=== PATIENT | female | born 1975 | race Two or more races ===

== ENCOUNTER 2021-10-24 07:41 | Outpatient (CLI) | payer OTHER, SELFPAY ==
--- NOTE | ~2021-10-24 | MM_ITS ---
EXAMINATION: MM scrn isaac implant BI w collin HISTORY: Screening mammogram TECHNIQUE: Craniocaudal and mediolateral oblique 3-D tomosynthesis images with implant displacement a nd synthetic 2-D images were generated. Craniocaudal and mediolateral oblique views of the breasts wi thout implant displacement were obtained using full field digital mammography. CAD analysis was submi tted and interpreted. COMPARISON: 08/20/2018, 06/25/2017, 02/26/2016 bilateral implant screening mammogram examinations BREAST PARENCHYMAL COMPOSITION: There are scattered areas of fibroglandular density. FINDINGS: Status post bilateral augmentation mammoplasty. There is no evidence of suspicious mass, ca lcification, or architectural distortion to suggest malignancy in either breast. There has been no robison spicious interval change. IMPRESSION: 1. No mammographic evidence of malignancy. 2. Recommend routine screening mammography in one year. BI-RADS Category 1: Negative Reviewed, dictated and finalized at location A.
== END 2021-10-24 07:42 | disposition home or self-care (01) ==
LOC: ANHIMG 07:44
PROVIDERS: PCP Family Medicine; Visit Provider Nurse Practitioner
DX: Z12.31 Encounter for screening mammogram for malignant neoplasm of breast (principal)
CPT/HCPCS: 77063; 77067

== ENCOUNTER 2022-02-11 02:33 | Emergency (ER) | payer OTHER, SELFPAY ==
[2022-02-11] VITALS (13 sets, daily range): BP systolic 131–160; BP diastolic 70–92; PULSE 66–96; RESP 14–26; TEMP 36.6; O2SAT 100
--- NOTE | ~2022-02-11 | XR_ITS ---
EXAMINATION: XR chest 2V DATE: 02/11/2022 06:01 INDICATION: Chest pain TECHNIQUE: PA and lateral views of the chest were obtained. COMPARISON: None FINDINGS: The lungs are clear with no focal airspace opacities, pulmonary edema, pleural effusion or pneumothor ax. The cardiomediastinal silhouette is normal. Moderate thoracic and lower cervical spondylosis. IMPRESSION: 1. No acute cardiopulmonary disease. Reviewed, dictated and finalized at location A.
--- NOTE | 2022-02-11 02:35 | ECG_ITS ---
Measurements Intervals [place] Rate: 95 P: 58 TN: 161 QRS: 17 QRSD: 70 T: 9 QT: 328 QTc: 413 Interpretive Statements SINUS RHYTHM VENTRICULAR PREMATURE COMPLEXES POSSIBLE LEFT ATRIAL ENLARGEMENT MINIMAL Q WAVES- INFERIOR LEADS ANTEROSEPTAL INFARCT, AGE INDETERMINATE BORDERLINE ST-T WAVE ABNORMALITY- INFERIOR LEADS ABNORMAL ECG NO PREVIOUS ECG AVAILABLE FOR COMPARISON Electronically Signed On 02-11-2022 6:30:59 CDT by Matheus Mead D.O.
[2022-02-11] MEDS: ASPIRIN 81 MG CHEWABLE TABLET 324 MG PO (03:09)
[2022-02-11 03:20] LABS: Basophils Absolute Auto 0.1 K/mm3 (0.0-0.1); Basophils Percent Auto 0.6 % (0.2-1.2); Eosinophils Absolute Auto 0.3 K/mm3 (0-0.3); Eosinophils Percent Auto 3.1 % (0-4.4); Hematocrit 40.1 % (37.0-47.0); Hemoglobin 13.8 g/dL (12.0-15.0); Immature Granulocyte Absolute 0.01 K/mm3 (0.00-0.031); Immature Granulocyte Percent A 0.1 % (0-0.5); Lymphocytes Absolute Auto 1.48 K/mm3 (0.9-3.2); Lymphocytes Percent Auto 17.7 % (18.3-44.2); Mean Corpuscular HGB Conc 34.4 g/dl (32-36); Mean Corpuscular Hemoglobin 31.2 pg (26-34); Mean Corpuscular Volume 90.5 fl (80-100); Mean Platelet Volume 10.9 fl (7.4-10.4); Monocytes Absolute Auto 0.4 K/mm3 (0.1-0.6); Monocytes Percent Auto 4.5 % (2.6-8.5); Neutrophils Absolute Auto 6.2 K/mm3 (1.3-6.7); Platelet Count Result 227 k/mm3 (150-375); Red Blood Count 4.43 M/mm3 (4.2-5.4); Red Cell Distribution Width 13.2 % (11.5-14.5); White Blood Count 8.4 K/mm3 (4.5-10.0)
[2022-02-11 03:29] LABS: Alanine Aminotransferase 24 U/L (6-35); Albumin Level 4.2 g/dL (3.5-5.1); Alkaline Phosphatase 64 U/L (38-126); Anion Gap 9 mmol/L (8-16); Aspartate Amino Transferase 27 U/L (14-36); Bilirubin,Total 0.4 mg/dL (0.2-1.3); Blood Urea Nitrogen 10 mg/dL (7-17); Calcium 9.4 mg/dL (8.4-10.2); Carbon Dioxide 23 mmol/L (22-30); Chloride 103 mmol/L (98-107); Estimated CRCL calculation 78 ml/min; Estimated Glomerular Filt Rate > 60; Glucose 121 mg/dL (65-110); Lipase 116 U/L (23-300); Potassium 4.1 mmol/L (3.4-5.0); Sodium 135 mmol/L (137-145)
[2022-02-11 03:29] LABS: INR 0.9; Prothrombin Time 12.2 Seconds (11.1-14.7)
[2022-02-11 03:30] LABS: Partial Thromboplastin Time 26.6 SECONDS (22.3-36.8)
[2022-02-11 03:34] LABS: D Dimer < 0.27 ug/mL (<0.48)
[2022-02-11 03:38] LABS: NT Pro B Type Natriuretic Pept 55 pg/mL (5-100)
[2022-02-11 03:41] LABS: Troponin I < 0.012 ng/mL (0.000-0.034)
--- NOTE | 2022-02-11 04:20 | PC.NURSE ---
Pt made aware of pending results. States pain remains to her left chest. Offered something for pain and pt states no, I'm okay. I just wanted to let you know I still have pain .
--- NOTE | 2022-02-11 04:47 | ED.GENADULT ---
HPI - General Adult General Chief complaint: Chest Pain Stated complaint: chest pain Time Seen by Provider: 02/11/22 02:52 History of Present Illness HPI narrative: This is a 47-year-old female presenting to ED with chief complaint chest pain. Patient says she has been having chest pain since April of last year. She has approximately 3 times per week. She describes it is a dull pain beneath her left breast that does not radiate, typically last for about 15 minutes at a time, is worse when she lays down it happens more frequently at night. She has recently seen a production posting clerk and underwent a stress test which she does not know the results. Patient came in tonight because the pain was more severe than usual and she said that it brought her to her knees. She denies loss of consciousness or syncope. Patient says that her chest pain is much improved at this time. It is not associated with diaphoresis, vomiting or exertion. Her grandfather had a history of cardiac at age 63. Related Data Home Medications Medication Instructions Recorded Confirmed atorvastatin 20 mg tablet mg 02/11/22 Allergies Allergy/AdvReac Type Severity Reaction Status Date / Time No Known Allergies Allergy Mild Verified 02/11/22 02:38 Review of Systems Review of Systems: CONSTITUTIONAL: Denies night sweats. EYES: No eye pain ENT: Denies rhinorrhea CARDIOVASCULAR: Denies palpitations RESPIRATORY: Denies hemoptysis GASTROINTESTINAL: Denies hematemesis GENITOURINARY: Denies hematuria. SKIN: Denies rash MUSCULOSKELETAL: Denies myalgia. NEUROLOGIC: Denies weakness. PSYCHIATRIC: Denies delusions [facility] Social History Social History Smoking status: Never smoker Alcohol intake: never Exam Narrative: APPEARANCE: No apparent distress. Head atraumatic. EYES: PERRLA/EOMI, NOSE: Normal no drainage NECK: Supple, Trachea midline RESPIRATORY: CTAB, No increased work of breathing. CARDIOVASCULAR: S1S2 appreciated , no peripheral edema ABDOMINAL: Soft, nontender, nondistended, MUSCULOSKELETAl: No obvious deformities NEURO: Alert. Moving 4/4 extremities SKIN:: Warm, dry. Normal color PSYCHIATRIC: Normal affect Course Vital Signs Vital signs: Vital Signs Temperature 97.8 F 02/11/22 02:41 Pulse Rate 96 02/11/22 02:41 Respiratory Rate 26 H 02/11/22 02:41 Blood Pressure 160/92 H 02/11/22 02:41 Pulse Oximetry 100 02/11/22 02:41 Oxygen Delivery Room Air 02/11/22 02:41 Temperature 97.8 F 02/11/22 02:41 Pulse Rate 73 02/11/22 05:46 Respiratory Rate 21 H 02/11/22 05:46 Blood Pressure 140/70 02/11/22 05:46 Pulse Oximetry 100 02/11/22 02:41 Oxygen Delivery Room Air 02/11/22 02:54 Medical Decision Making MDM Narrative Medical decision making narrative: This is a 47-year-old female presenting ED with acute on chronic chest pain. She has been experiencing this pain for approximately 1 year and has seen a production posting clerk outpatient. Chest pain workup has been ordered including a D-dimer. EKG interpretation: Rhythm [sinus], Rate 95, [place] -[normal], [place] -[normal], QRS [narrow], QTC [normal], T waves -[negative for concerning inversions], ST Segments - [Negative for concerning elevations] Final interpretations: Normal sinus rhythm with occasional PVCs Lab work was within normal limits. Patient had 2- troponins. BNP and D-dimer were both negative. Chest x-ray is unremarkable. Patient's EKGs and labs are reviewed without significant high risk changes. Cardiac risk factors reviewed. Heart score is <4 and it is reasonable for further risk stratification to be performed as outpatient. Pain was not sudden or maximal onset not tearing or ripping quality. No other signs or symptoms suggest aortic dissection. A low risk Wells criteria is noted. PE is felt to be unlikely. No pneumonia seen on evaluation today. Patient is felt to be reasonab
--- NOTE | 2022-02-11 05:40 | PC.NURSE ---
3 hour troponin drawn. Pt updated regarding lab results. Remains SR via monitor. States pain is unchanged but does not wish to have anything for it.
[2022-02-11 06:03] LABS: Troponin I < 0.012 ng/mL (0.000-0.034)
== END 2022-02-11 06:29 | disposition home or self-care (01) ==
PROVIDERS: Emergency Provider Emergency Medicine; PCP Family Medicine
DX: R07.9 Chest pain, unspecified (principal)
CPT/HCPCS: 36415; 71046; 80053; 83690; 83880; 84484; 85025; 85380; 85610; 85730; 93005; 99284; A9270

== ENCOUNTER 2022-07-02 12:48 | Outpatient (CLI) | payer OTHER, SELFPAY ==
--- NOTE | ~2022-07-02 | XR_ITS ---
EXAMINATION: XR chest 2V DATE: 07/02/2022 13:44 INDICATION: Preoperative planning. Abnormal EKG with prior myocardial infarction. TECHNIQUE: PA and lateral views of the chest were obtained. COMPARISON: Chest radiograph dated 02/11/2022 FINDINGS: The lungs remain clear with no focal airspace opacities, pulmonary edema, pleural effusion or pneumot horax. The cardiomediastinal silhouette is normal. Visualized bones and soft tissues are unremarkable . IMPRESSION: 1. No acute cardiopulmonary disease. Reviewed, dictated and finalized at location A. R WATER ASSISTANT
--- NOTE | 2022-07-02 13:10 | ECG_ITS ---
Measurements Intervals [place] Rate: 69 P: 31 TN: 185 QRS: 17 QRSD: 82 T: -4 QT: 379 QTc: 407 Interpretive Statements SINUS RHYTHM ANTEROSEPTAL MYOCARDIAL INFARCTION , OF INDETERMINATE AGE [40+ ms Q WAVE IN V1-V4] NONSPECIFIC T-WAVE ABNORMALITY COMPARED TO ECG 02/11/2022 02:49:34 NO SIGNIFICANT CHANGES Electronically Signed On 07-02-2022 13:39:13 ICE CREAM VENDOR by Michelle Rizzo M.D.
== END 2022-07-02 12:49 | disposition home or self-care (01) ==
PROVIDERS: PCP Family Medicine
DX: Z01.818 Encounter for other preprocedural examination (principal); I21.9 Acute myocardial infarction, unspecified
CPT/HCPCS: 71046; 93005

== ENCOUNTER 2022-07-03 13:09 | Outpatient (CLI) | payer OTHER, SELFPAY ==
--- NOTE | 2022-07-03 | ECG_ITS ---
Measurements Intervals [place] Rate: 65 P: 24 MS: 181 QRS: 5 QRSD: 74 T: -10 QT: 373 QTc: 388 Interpretive Statements SINUS RHYTHM PREVIOUS ANTEROSEPTAL MO NONSPECIFIC T-WAVE ABNORMALITY ABNORMAL ECG COMPARED TO ECG 07/02/2022 13:20:04 NO SIGNIFICANT CHANGES Electronically Signed On 07-04-2022 14:30:56 CATTLE KILLER by Marcial Robertson M.D.
== END 2022-07-03 13:10 | disposition home or self-care (01) ==
PROVIDERS: PCP Family Medicine
DX: Z01.818 Encounter for other preprocedural examination (principal); R94.31 Abnormal electrocardiogram [ECG] [EKG]
CPT/HCPCS: 93005

== ENCOUNTER 2022-08-21 14:22 | Outpatient (CLI) | payer OTHER, SELFPAY ==
--- NOTE | ~2022-08-21 | US_ITS ---
EXAMINATION: US venous doppler [facility] DATE: 08/21/2022 15:26 INDICATION: Left lower limb pain TECHNIQUE: Guillen scale images without and with compression and Doppler images of the left lower extrem ity veins were obtained. COMPARISON: None FINDINGS: The left common femoral vein, profunda femoral vein, femoral vein, popliteal vein, peroneal trunk, posterior tibial veins, and greater saphenous vein are patent. IMPRESSION: 1. Patent left lower extremity veins. No evidence of deep venous thrombosis. Reviewed, dictated and finalized at location L.
== END 2022-08-21 14:23 | disposition home or self-care (01) ==
PROVIDERS: PCP Family Medicine; Visit Provider Family Medicine
DX: M79.662 Pain in left lower leg (principal)
CPT/HCPCS: 93971

== ENCOUNTER 2022-10-30 07:19 | Outpatient (CLI) | payer OTHER, SELFPAY ==
--- NOTE | ~2022-10-30 | MM_ITS ---
EXAMINATION: MM scrn isaac implant BI w collin HISTORY: Screening mammogram TECHNIQUE: Craniocaudal and mediolateral oblique 3-D tomosynthesis images with implant displacement a nd synthetic 2-D images were generated. Craniocaudal and mediolateral oblique views of the breasts wi thout implant displacement were obtained using full field digital mammography. CAD analysis was submi tted and interpreted. COMPARISON: 10/24/2021, 08/20/2018, 06/25/2017 BREAST PARENCHYMAL COMPOSITION: There are scattered areas of fibroglandular density. FINDINGS: There is no evidence of suspicious mass, calcification, or architectural distortion to sugg est malignancy in either breast. There has been no suspicious interval change. IMPRESSION: No mammographic evidence of malignancy. Recommend routine screening mammography in one year. BI-RADS Category 1: Negative Reviewed, dictated and finalized at [facility].
== END 2022-10-30 07:20 | disposition home or self-care (01) ==
PROVIDERS: PCP Family Medicine; Visit Provider Obstetrics & Gynecology Gynecology
DX: Z12.31 Encounter for screening mammogram for malignant neoplasm of breast (principal)
CPT/HCPCS: 77063; 77067

== ENCOUNTER 2023-08-13 22:47 | Emergency (ER) | payer OTHER, SELFPAY ==
[2023-08-13 22:49] VITALS: BP 146/96; PULSE 75; RESP 15; TEMP 36.9; O2SAT 100
[2023-08-13 23:11] LABS: Basophils Percent Auto 0.6 % (0.2-1.2); Eosinophils Absolute Auto 0.4 K/mm3 (0-0.3); Hematocrit 41.6 % (37.0-47.0); Hemoglobin 14.2 g/dL (12.0-15.0); Immature Granulocyte Absolute 0.02 K/mm3 (0.00-0.031); Immature Granulocyte Percent A 0.3 % (0-0.5); Lymphocytes Absolute Auto 2.45 K/mm3 (0.9-3.2); Lymphocytes Percent Auto 39.7 % (18.3-44.2); Mean Corpuscular HGB Conc 34.1 g/dl (32-36); Mean Corpuscular Hemoglobin 31.3 pg (26-34); Mean Corpuscular Volume 91.8 fl (80-100); Mean Platelet Volume 10.2 fl (7.4-10.4); Monocytes Absolute Auto 0.5 K/mm3 (0.1-0.6); Monocytes Percent Auto 7.9 % (2.6-8.5); Neutrophils Absolute Auto 2.8 K/mm3 (1.3-6.7); Neutrophils Percent Auto 45.5 % (45.5-73.1); Platelet Count Result 239 k/mm3 (150-375); Red Blood Count 4.53 M/mm3 (4.2-5.4); Red Cell Distribution Width 12.9 % (11.5-14.5); White Blood Count 6.2 K/mm3 (4.5-10.0)
[2023-08-13 23:18] LABS: Bacteria Urine Rare /hpf; Non Pathogenic Casts 0-2; RBC Urine >100 /hpf (0-2); Squamous Epithelial Cell Urine Occasional /hpf (Few); WBC Urine 0-5 /hpf (0-3)
[2023-08-13 23:21] LABS: Appearance Urine Cloudy (Clear); Bilirubin Urine Negative (Negative); Blood Urine 3+ (Negative); Glucose Urine UA Negative (Negative); Ketones Urine Trace mg/dL (Negative); Leukocyte Esterase Ur Trace LEU/UL (Negative); Nitrate Urine Negative (Negative); Protein Urine Trace mg/dL (Negative); Specific Grav Ur 1.023 (1.001-1.035)
[2023-08-13 23:22] LABS: Add Urine Microscopic? YES; Color Urine Amber (Yellow)
[2023-08-13 23:23] LABS: Alanine Aminotransferase 26 U/L (6-35); Albumin Level 4.1 g/dL (3.5-5.1); Alkaline Phosphatase 59 U/L (38-126); Anion Gap 8 mmol/L (8-16); Aspartate Amino Transferase 26 U/L (14-36); Bilirubin,Total 0.5 mg/dL (0.2-1.3); Blood Urea Nitrogen 12 mg/dL (7-17); Calcium 9.4 mg/dL (8.4-10.2); Carbon Dioxide 24 mmol/L (22-30); Chloride 105 mmol/L (98-107); Estimated CRCL calculation 87 ml/min; Estimated Glomerular Filt Rate > 60; Glucose 104 mg/dL (65-110); Lipase 118 U/L (23-300); Potassium 3.8 mmol/L (3.4-5.0); Sodium 137 mmol/L (137-145)
--- NOTE | 2023-08-14 00:06 | ED.ABDPAIN ---
HPI - Abdominal Pain General Chief Complaint: Abdominal Pain Stated Complaint: abdominal pain Time Seen by Provider: 08/13/23 23:43 Source: patient Mode of arrival: ambulatory Limitations: no limitations History of Present Illness HPI narrative: This is a 48-year-old female who presents to the ED with chief complaint of intermittent abdominal pain. Describes as sharp, burning pain that comes and goes in the epigastrium and diffuse dull pain left follows. Patient states that her pain is significantly decreased from initial onset and it is just dull lower abdominal pain at this point. She has been taking new Rx for Creon for pancreatic insufficiency. She has been told in the past that she has a stomach ulcer. Denies eating spicy foods or any other exacerbating factors. Endorses nausea with 3 episodes of vomiting today. Denies fevers, chills, urinary symptoms, flank pain, chest pain, shortness of breath, cough. Related Data Home Medications Medication Instructions Recorded Confirmed atorvastatin 20 mg tablet mg 02/11/22 Allergies Allergy/AdvReac Type Severity Reaction Status Date / Time No Known Allergies Allergy Mild Verified 08/13/23 22:48 Review of Systems Review of Systems: All systems as dictated in [facility] Social History Social History Smoking status: Never smoker Alcohol intake: never Exam Narrative: GENERAL: Well-appearing, well-nourished, and in no acute distress. HEAD: Normocephalic, atraumatic. EYES: PERRLA and EOMI. ENT: Nares clear, no rhinorrhea or epistaxis. Mucous membranes moist. Oropharynx without tonsillar hypertrophy exudate or other lesions. NECK: Supple. No adenopathy or masses. CHEST: No respiratory distress. Clear to auscultation. No wheezes rales or rhonchi HEART: Regular rate and rhythm. No murmur heard. Normal peripheral pulses. ABDOMEN: Soft, nontender, nondistended, normal active bowel sounds. MSK: Normal range of motion. No edema. SKIN: Warm, dry, no rash. NEURO: Alert and oriented x3. No focal deficits. PSYCH: Normal mood and affect. Course Vital Signs Vital signs: Vital Signs Temperature 98.5 F 08/13/23 22:49 Pulse Rate 75 08/13/23 22:49 Respiratory Rate 15 08/13/23 22:49 Blood Pressure 146/96 H 08/13/23 22:49 Pulse Oximetry 100 08/13/23 22:49 Oxygen Delivery Room Air 08/13/23 22:49 Temperature 98.5 F 08/13/23 22:49 Pulse Rate 75 08/13/23 22:49 Respiratory Rate 15 08/13/23 22:49 Blood Pressure 146/96 H 08/13/23 22:49 Pulse Oximetry 100 08/13/23 22:49 Oxygen Delivery Room Air 08/13/23 22:49 MDM - Abdominal Pain MDM Narrative Medical decision making narrative: This is a 48-year-old female who presents to the ED with chief complaint of intermittent abdominal pain as well as N/V. Vitals are normal. Exam is benign. No evidence of acute abdomen on exam. Lab work shows normal white count and grossly normal CMP. Lipase is normal. urinalysis shows evidence of blood but patient is currently on menstrual cycle. Overall symptoms and presentation are consistent with gastritis. When I evaluate the patient she is feeling better and does not require any intervention. Shared decision making to avoid CT imaging or any further workup. She feels comfortable following up with GI doctor. We will start on omeprazole he and Zofran as needed. Pt will be discharged in stable condition. Return precautions given and supportive measures discussed. Pt is understanding and agreeable with plan for discharge and follow-up with PCP. Lab Data 08/13/23 23:01 08/13/23 23:01 Labs: Lab Results 08/13/23 08/13/23 Range/Units 23:00 23:01 WBC 6.2 (4.5-10.0) K/mm3 RBC 4.53 (4.2-5.4) M/mm3 Hgb 14.2 (12.0-15.0) g/dL Hct 41.6 (37.0-47.0) % MCV 91.8 (80-100) fl MCH 31.3 (26-34) pg MCHC 34.1 (32-36) g/dl RDW 12.9
== END 2023-08-14 00:20 | disposition home or self-care (01) ==
LOC: ANHED 08-14 00:12
PROVIDERS: Emergency Medicine; Emergency Provider Physician Assistant; PCP Family Medicine
DX: K29.70 Gastritis, unspecified, without bleeding (principal); K86.89 Other specified diseases of pancreas
CPT/HCPCS: 36415; 80053; 81025; 83690; 85025; 99283

== ENCOUNTER 2024-01-05 14:21 | Outpatient (CLI) | payer OTHER, SELFPAY ==
[2024-01-05 14:55] LABS: Hematocrit 42.1 % (37.0-47.0); Hemoglobin 13.9 g/dL (12.0-15.0); Mean Corpuscular Hemoglobin 31.1 pg (26-34); Mean Corpuscular Volume 94.2 fl (80-100); Mean Platelet Volume 11.1 fl (7.4-10.4); Platelet Count Result 228 k/mm3 (150-375); Red Blood Count 4.47 M/mm3 (4.2-5.4); Red Cell Distribution Width 12.8 % (11.5-14.5); White Blood Count 7.1 K/mm3 (4.5-10.0)
[2024-01-05 15:01] LABS: Alanine Aminotransferase 25 U/L (6-35); Albumin Level 4.4 g/dL (3.5-5.1); Alkaline Phosphatase 58 U/L (38-126); Anion Gap 11 mmol/L (4-12); Aspartate Amino Transferase 27 U/L (14-36); Bilirubin,Total 0.7 mg/dL (0.2-1.3); Blood Urea Nitrogen 10 mg/dL (7-17); CRP < 0.5 mg/dL (<1.0); Calcium 9.1 mg/dL (8.4-10.2); Carbon Dioxide 27 mmol/L (22-30); Chloride 100 mmol/L (98-107); Estimated Glomerular Filt Rate > 60; Glucose 88 mg/dL (65-110); Potassium 3.8 mmol/L (3.4-5.0); Sodium 138 mmol/L (137-145)
[2024-01-05 15:19] LABS: Erythrocyte Sedimentation Rate 11 mm/hr (0-20)
[2024-01-08 03:59] LABS: Immunoglobulin A 332 mg/dL (47-310); TTG IGA AB <1.0 U/mL
== END 2024-01-05 14:22 | disposition home or self-care (01) ==
LOC: ANHLAB 14:23
PROVIDERS: PCP Internal Medicine; Visit Provider Nurse Practitioner
DX: R10.13 Epigastric pain (principal); R10.12 Left upper quadrant pain; K21.9 Gastro-esophageal reflux disease without esophagitis; R09.A2 Foreign body sensation, throat; K58.0 Irritable bowel syndrome with diarrhea
CPT/HCPCS: 36415; 80053; 82784; 84443; 85027; 85652; 86140; 86364

== ENCOUNTER 2024-01-06 10:19 | Outpatient (CLI) | payer OTHER, SELFPAY ==
[2024-01-11 14:08] LABS: H pylori Ag Stool RESULT: Not Detected
[2024-01-12 19:14] LABS: Calprotectin, Stool 7 mcg/g
[2024-01-23 18:14] LABS: Pancreatic Elastase, Stool >500 mcg/g
== END 2024-01-06 10:20 | disposition home or self-care (01) ==
LOC: ANHLAB 10:20
PROVIDERS: PCP Internal Medicine; Visit Provider Nurse Practitioner
DX: A04.8 Other specified bacterial intestinal infections (principal); K21.9 Gastro-esophageal reflux disease without esophagitis; K58.0 Irritable bowel syndrome with diarrhea; R09.A2 Foreign body sensation, throat
CPT/HCPCS: 82653; 83993; 87338

== ENCOUNTER 2024-01-19 06:58 | Outpatient (CLI) | payer OTHER, SELFPAY ==
--- NOTE | ~2024-01-19 | NM_ITS ---
EXAMINATION: NM hepatobiliary wo pharm DATE: 01/19/2024 09:36 INDICATION: Epigastric and left upper quadrant abdominal pain. COMPARISON: CT abdomen and pelvis 03/18/2005 TECHNIQUE: 4.9 mCi Tc-99m mebrofenin (Choletec) was administered intravenously. Scintigraphic images of the abdomen were obtained for one hour. Then, the patient drank 8 oz Ensure, and imaging was cont inued for 60 minutes. FINDINGS: There is normal clearance of radiotracer from the blood pool. There is homogeneous tracer u ptake by the liver. Activity progresses to the bowel and gallbladder. Gallbladder ejection fraction (GBEF) was 59%. Note that with this technique, normal GBEF >= 33%. IMPRESSION: 1. Normal hepatobiliary scintigraphy. Reviewed, dictated and finalized at location A.
== END 2024-01-19 06:59 | disposition home or self-care (01) ==
PROVIDERS: PCP Internal Medicine; Visit Provider Nurse Practitioner
DX: R10.13 Epigastric pain (principal); R10.12 Left upper quadrant pain; K21.9 Gastro-esophageal reflux disease without esophagitis
CPT/HCPCS: 78226; A9537

== ENCOUNTER 2024-01-27 08:42 | Outpatient (CLI) | payer OTHER, SELFPAY ==
--- NOTE | ~2024-01-27 | US_ITS ---
US abdomen limited INDICATION: Epigastric pain PROCEDURE: Realtime right upper abdominal ultrasound. COMPARISON: No prior studies for comparison. FINDINGS: The pancreas is normal without focal mass or pancreatic ductal dilation. Liver echotexture is normal without focal mass or intrahepatic biliary dilatation. There is normal directional flow i n the portal vein. Gallbladder wall is thickened. No definite gallstones. Common bile duct measures 3 mm. No sonograph ic Paz's sign. IMPRESSION: 1: Gallbladder wall thickening measuring 3 mm. No gallstones. Reviewed, dictated and finalized at location B.
== END 2024-01-27 08:43 | disposition home or self-care (01) ==
LOC: ANHIMG 08:45
PROVIDERS: PCP Internal Medicine; Visit Provider Nurse Practitioner
DX: R10.13 Epigastric pain (principal); R10.12 Left upper quadrant pain; K21.9 Gastro-esophageal reflux disease without esophagitis; K82.8 Other specified diseases of gallbladder
CPT/HCPCS: 76705

== ENCOUNTER 2024-02-18 01:42 | Day surgery (SDC) | payer OTHER, SELFPAY ==
[2024-01-28 09:10] VITALS: BMI 27.7
[2024-02-18] MEDS: LACTATED RINGERS 1,000 ML 150 ML IV CONT (12:35)
--- NOTE | 2024-02-18 12:41 | P.PNAN_ITS ---
Anes - Initial Pre Proc Eval Procedure: Operation Date: 02/18/24 13:30 Proposed Procedures p Esophagogastroduodenoscopy - Rigoberto Hogan MD Date/Time: 02/18/24 12:41 Surgeon: Rigoberto Hogan MD Pre Op Diagnosis: GERD, Epigastric pain, LUQ pain Patient Data Age: 49 Gender: F Height: 1.68 m Weight: 78 kg Allergies Allergy/AdvReac Type Severity Reaction Status Date / Time No Known Allergies Allergy Mild Verified 02/18/24 12:25 Home Medications Medication Instructions Recorded Confirmed Type atorvastatin 20 mg tablet 20 mg PO QHS 12/07/23 02/18/24 History omeprazole 40 mg capsule,delayed 40 mg PO DAILY #30 caps 01/05/24 02/18/24 Rx release hyoscyamine sulfate 0.375 mg 0.375 mg PO PRN PRN Stomach 01/28/24 02/18/24 History tablet,extended release,12 hr Cramping Patient hx anesthesia problems: none Family hx anesthesia problems: none Results Review: All pre-operative results and documents have been reviewed as part of the pre-operative evaluation. [facility] Social History Social History Smoking status: Never smoker Alcohol intake: never Living arrangements: with family Spiritual care concerns: No Anes - Eval Final PreProcedure Day of Procedure 02/18/24 12:41 Patient weight: normal Heart: regular rate and rhythm Lungs: clear to auscultation Airway: Mallampati scale class 1 Neurological: alert and oriented Last oral intake: >/= 8 hours ASA classification: I Emergent: no Anesthetic plan: proceed Anesthesia type and monitoring: general GIVS and standard monitoring Results Review: All pre-operative results and documents have been reviewed as part of the pre- operative evaluation. GERD. Informed Consent: The patient's anesthetic plan and its attendant risks and benefits were discussed with the patient/family/POA. Questions were solicited and answers provided to the satisfaction of the patient/family/POA.
--- NOTE | 2024-02-18 13:38 | PM.HPGS ---
History of Present Illness History of Present Illness Consent: Risks, benefits, and alternatives have been discussed and questions answered. Patient agrees to proceed with procedure. Chief complaint: GERD, Epigastric pain, LUQ pain Narrative: Mira Solis is a 49 year old female with gerd and previous esophageal ulcer in 2020, on ppi Review of Systems Review of Systems: All systems reviewed & are unremarkable except as noted in HPI and below PMFSH Social History Social History Smoking status: Never smoker Alcohol intake: never Living arrangements: with family Spiritual care concerns: No Meds Home Medications and Allergies Home Medications Medication Instructions Recorded Confirmed Type atorvastatin 20 mg tablet 20 mg PO QHS 12/07/23 02/18/24 History omeprazole 40 mg capsule,delayed 40 mg PO DAILY #30 caps 01/05/24 02/18/24 Rx release hyoscyamine sulfate 0.375 mg 0.375 mg PO PRN PRN Stomach 01/28/24 02/18/24 History tablet,extended release,12 hr Cramping Allergies Allergy/AdvReac Type Severity Reaction Status Date / Time No Known Allergies Allergy Mild Verified 02/18/24 12:25 Exam Const: General: comfortable and no acute distress HENMT: Face/Nose/Sinus: Normal nares present Eyes: General: appearance normal, both eyes and all related structures Neck: Neck: no JVD Resp: Auscultation: clear to auscultation bilaterally Cardio: Rate: regular rate Rhythm: regular rhythm GI: Inspection: non-distended GI Palp: Yes Soft to palpation Skin: General skin exam: normal color Neuro: General: gait normal Speech: normal speech Extrem: General: normal to inspection Psych: Mental Status: mental status grossly normal Assessment and Plan Assessment and plan (1) GERD (gastroesophageal reflux disease): Code(s): K21.9 - Gastro-esophageal reflux disease without esophagitis Status: Acute Assessment and Plan: egd to assess on ppi
[2024-02-18 13:48] VITALS: BP 133/93; PULSE 71; RESP 16; TEMP 36; O2SAT 100; BMI 27.8
[2024-02-18 13:54] LABS: BEDSIDEPREGUCG Negative (Negative)
[2024-02-18 14:02] VITALS: BP 150/73; PULSE 72; RESP 15; O2SAT 95
[2024-02-18 14:12] VITALS: BP 143/81; PULSE 66; RESP 15; O2SAT 100
[2024-02-18 14:22] VITALS: BP 157/74; PULSE 67; RESP 18; O2SAT 100
== END 2024-02-18 14:29 | disposition home or self-care (01) ==
PROVIDERS: Anesthesiology; PCP Internal Medicine; Referring Provider Nurse Practitioner; Visit Provider Internal Medicine Gastroenterology
PROC: 0DJ08ZZ Inspection of Upper Intestinal Tract, Via Natural or Artificial Opening Endoscopic (ICD-10-PCS; CPT 43235; principal; 2024-02-18 13:30)
DX: K21.00 Gastro-esophageal reflux disease with esophagitis, without bleeding (principal); K29.50 Unspecified chronic gastritis without bleeding
CPT/HCPCS: 43239; 88305; 88342; J2704; J7120

== ENCOUNTER 2024-05-17 09:24 | Outpatient (CLI) | payer OTHER, SELFPAY ==
--- NOTE | ~2024-05-17 | MM_ITS ---
EXAMINATION: MM scrn isaac implant BI w collin HISTORY: Screening mammogram TECHNIQUE: Craniocaudal and mediolateral oblique 3-D tomosynthesis images with implant displacement a nd synthetic 2-D images were generated. Craniocaudal and mediolateral oblique views of the breasts wi thout implant displacement were obtained using full field digital mammography. CAD analysis was submi tted and interpreted. COMPARISON: 03/06/2015 BREAST PARENCHYMAL COMPOSITION: Dense: The breasts are heterogeneously dense, which may obscure small masses FINDINGS: There is a small mass in the upper aspect of the right breast on right MLO implant displace d view, middle third. There is a mass inferiorly in the left breast on left MLO, not definitely seen on prior examination. IMPRESSION: 1. Bilateral breast masses. 2. Additional mammographic views and possible breast ultrasound are recommended. BI-RADS Category 0: Incomplete: Needs additional imaging evaluation. Reviewed, dictated and finalized at location B. E EXTRA IMPRESSION: 1. Bilateral breast masses. 2. Additional mammographic views and possible breast ultrasound are recommended . BI-RADS Category 0: Incomplete: Needs additional imaging evaluation.
== END 2024-05-17 09:25 | disposition home or self-care (01) ==
LOC: ANHIMG 09:25
PROVIDERS: PCP Internal Medicine; Visit Provider Obstetrics & Gynecology Gynecology
DX: Z12.31 Encounter for screening mammogram for malignant neoplasm of breast (principal); N63.20 Unspecified lump in the left breast, unspecified quadrant; N63.10 Unspecified lump in the right breast, unspecified quadrant
CPT/HCPCS: 77063; 77067

== ENCOUNTER 2024-06-02 11:01 | Outpatient (CLI) | payer OTHER, SELFPAY ==
--- NOTE | ~2024-06-02 | MMUS_ITS ---
EXAMINATION: MM diag isaac implant BI w collin, US breast RT limited HISTORY: Bilateral breast densities TECHNIQUE: Additional 3-D tomosynthesis images of the breasts were performed and synthetic 2-D images were generated. CAD analysis was submitted and interpreted. High resolution limited right breast ult rasound was performed. COMPARISON: 05/17/2024, 10/30/2022 BREAST PARENCHYMAL COMPOSITION:Dense: The breasts are heterogeneously dense, which may obscure small masses. FINDINGS: MAMMOGRAPHIC FINDINGS: Spot compression views confirm several small low density round masses in the upper right breast. Dens ity seen in the left breast effaces with spot compression. ULTRASOUND: At the 10:00 position right breast, 10 cm from the nipple, there is a 5 x 3 x 2 mm parallel hypoechoi c circumscribed mass. No posterior shadowing. At the 11:00 position right breast, 4 cm from the nippl e, there is a 4 x 6 x 5 mm cyst, with posterior through transmission. There is an additional 3 mm hyp oechoic mass or cyst, round, at the 11:00 position right breast as well. At the 12:00 position right breast, 2 cm from the nipple, there is a 3 mm cyst. IMPRESSION: Subcentimeter cysts and probable benign lesions in the upper right breast, as detailed above. 6 ramon h follow-up ultrasound advised to confirm stability. BI-RADS category 3, probably benign findings. Reviewed, dictated and finalized at [facility]. Y DYER IMPRESSION: Subcentimeter cysts and probable benign lesions in the upper right breast, as detailed above. 6 month follow-up ultrasound advised to confirm stability. BI-RADS category 3, probably benign findings.
== END 2024-06-02 11:02 | disposition home or self-care (01) ==
PROVIDERS: Visit Provider Obstetrics & Gynecology Gynecology
DX: R92.8 Other abnormal and inconclusive findings on diagnostic imaging of breast (principal)
CPT/HCPCS: 76642; 77062; 77066; G0279

== ENCOUNTER 2024-08-04 21:57 | Emergency (ER) | payer OTHER, SELFPAY ==
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
--- OUTSIDE RECORDS SUMMARY | 2024-08-04 22:00 | XMS_ITS | Patient Health Record ---
Author Organization [facility] Urgent Care - So [facility] Address [address] [place] [address] Care Team Providers Care Technical Sales Consultant Name Role Phone Marcial Torres [phone] Allergies No Known Allergies Reason For Referral No Information Plan Of Treatment No Information Insurance Providers Payer Name Payer Address Payer Phone Subscriber Number Group Number Insured Name Patient Relationship to Insured Coverage Start Date Coverage End Date Self Pay - Time of Service [id number] Mira Solis Self - patient is the insured Medical (General) History Surgical History Surgery Date(Month/Year)
--- OUTSIDE RECORDS SUMMARY | 2024-08-04 22:00 | XMS_ITS | Clinical Summary ---
Author Organization [facility] Address [address], [address] [address] Phone Care Team Providers Care Orthopedic Surgeon Name Role Phone Carlos Almeida MD Unavailable [phone] Gulshan Alvarado MD Primary Care Provider Allergies Active Allergy Reactions Criticality Noted Date Comments Amoxicillin Other (see Comments) 03/06/2016 Caused Yeast Infection Medications acyclovir (ZOVIRAX) 400 MG Tablet Take 1 Tab by mouth once a week. 6 Active NUVARING 0.12-0.015 MG/24HR RING 6 Active ibuprofen (MOTRIN) 200 MG Tablet Take 400 mg by mouth as needed for Pain. Active Multiple Vitamins-Minera ls (MULTIVITAMIN PO) Take 1 Tab by mouth daily. Active Cholecalciferol (VITAMIN D PO)Indications: PATIENT IS UNSURE OF AMOUNT OF UNITS TAKEN DAILY Take 1 Tab by mouth daily. Active HYDROcodone-mally taminophen (NORCO) 5-325 MG Tablet Take 1-2 Tabs by mouth every 4 hours as needed for Mild or more severe pain. 40 Tab 9 Active Additional Information Patient not taking.Reported on 08/31/2018 Active Problems Problem Noted Date Diagnosed Date Umbilical hernia without obstruction and without gangrene 03/26/2016 Immunizations Immunization Administration Dates Next Due Influenza Vaccine greater than 3 yrs 02/25/2016 Family History Medical History Relation Name Comments High Cholesterol Father Breast Cancer Maternal Aunt Cancer Maternal Grandmother Lymphom a High Cholesterol Mother Hypertension Mother Relation Name Status Comments Father Maternal Aunt Maternal Grandmother Mother Social History Tobacco Use Types Packs/Day Years Used Date Smoking Tobacco: Never Smokeless Tobacco: Never Alcohol Use Standard Drinks/Week Comments Yes 1 (1 standard drink = 0.6 oz pur e alcohol) Social Comments No Sex and Gender Information Value Date Recorded Sex Assigned at Not on file Legal Sex Female 3:39 PM CDT Gender Identity Not on file Sexual Orientation Not on file Last Filed Vital Signs Vital Sign Reading Time Taken Comments Blood Pressure 112/74 08/31/2018 9:40 AM CDT Pulse 87 07/30/2018 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 Temperature 37.1 C (98.8 F) 08/31/2018 9:40 AM CDT Respiratory Rate 16 08/31/2018 9:40 AM CDT Oxygen Saturation 98% 07/30/2018 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 Inhaled Oxygen Concentration - - Weight 78.5 kg (173 lb) 08/31/2018 9:40 AM CDT Height 167.6 cm (5' 6 ) 08/31/2018 9:40 AM CDT Body Mass Index 27.92 08/31/2018 9:40 AM CDT Plan of Treatment Health Maintenance Due Date Last Done Comments Hepatitis C Virus (HCV) Screening 1973 Hepatitis B Immunization (2 of 3 - 19+ 3-dose series) 05/07/2016 04/09/2016 Colonoscopy 2018 Colorectal Cancer Screening 2018 Cologuard 2023 Immunochemical Fecal Occult Blood 2023 Pneumococcal Immunization (50+ years) (1 of 1 - PCV) 2023 Zoster Immunization (1 of 2) 2023 Influenza Immunization (#1) 2024 02/25/2016 SARS-COV-2 Immunization (3 - 2023- season) 2024 08/31/2020, 08/10/2020 Respiratory Syncytial Virus (RSV) Immunization (Adult) (1 - 1-dose 75+ series) 02/02/2048 DTaP/Tdap/Td Immunization Discontinued 2007, 11/20/1988, 12/30/1978, Additional history exists TdaP Immunization Completed 04/24/2008 Meningococcal Immunization (ACWY) Aged Out No longer eligible based on patient's age to complete this topic Rotavirus Immunization Aged Out No lo nger eligible based on patient's age to complete this topic Medical Devices Implanted Type Area Process Controller Device Identifier Shelf Expiration Date Model / Serial / Lot Grft Mesh V Patch C Qur Sm 4.3 X 4.3cm - [id number] Implanted:Qty : 1 on 04/14/2016 by Carlos Almeida MD at [facility] IMPLANT N/A: Umbilical [employer] / [employer] 08/30/2016 [id number] / / [id number] Insurance MEDICAID [employer] Care Teams Orthopedic Surgeon Relationship Specialty Start Date End Date Gulshan Alvarado MD [address] [place] [address] [place] [address] PCP - General Mica Spreader 04/14/16 Carlos Almeida MD General Surgery 03/11/16
--- OUTSIDE RECORDS SUMMARY | 2024-08-04 22:00 | XMS_ITS | Clinical Summary ---
Author Organization [facility] Address [address] [place] [id number] Care Team Providers Care Grades 1 Thru 5 Teacher Name Role Phone Gulshan Junior MD Primary Care Provider [phone] Allergies Active Allergy Reactions Criticality Noted Date Comments Penicillins Other (see comment) 07/22/2020 Yeast infection Medications Etonogestrel-Et hinyl Estradiol (NUVARING) 0.12-0.015 MG/24HR RING 1 EVERY 3 WEEKS DIRECTED, REMOVE FOR 1 WEEK Active atorvastatin 20 MG tablet Take 20 mg by mouth nightly at bedtime. Active Active Problems No known active problems Family History Medical History Relation Comments Hypertension Father Hypertension Mother Relation Status Comments Father Alive Mother Alive Social History Tobacco Use Types Packs/Day Years Used Date Smoking Tobacco: Never Smokeless Tobacco: Never Alcohol Use Standard Drinks/Week Comments Yes 3.3 (1 standard drink = 0.6 oz p ure alcohol) Comments No Sex and Gender Information Value Date Recorded Sex Assigned at Not on file Legal Sex Female 8:13 PM CDT Gender Identity Not on file Sexual Orientation Not on file Last Filed Vital Signs Vital Sign Reading Time Taken Comments Blood Pressure 123/75 07/22/2020 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 Pulse 89 07/22/2020 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 Temperature 36.4 C (97.6 F) 07/22/2020 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 Respiratory Rate 16 07/22/2020 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 Oxygen Saturation 99% 07/22/2020 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 Inhaled Oxygen Concentration - - Weight 79.4 kg (175 lb) 07/22/2020 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 Height 167.6 cm (5' 6 ) 07/22/2020 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 Body Mass Index 28.25 07/22/2020 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 Plan of Treatment Health Maintenance Due Date Last Done Comments Cervical Cancer Screening Pa p Smear (Age 30 to 64) Every 3 Years 1973 Colorectal Cancer Screening Colonoscopy (10 Years) 1973 Annual Physical 02/02/1976 Hepatitis C 1991 DTaP, Tdap and Td Vaccines ( 1 - Tdap) 02/02/1992 Hepatitis B Vaccines (1 of 3 - 19+ 3-dose series) 02/02/1992 Cervical Cancer Screening Pa p with HPV Testing (Age 30 to 64) Every 5 Years 2003 Cervical Cancer Screening with HPV 2003 Mammogram Screening 2013 Zoster Vaccines (1 of 2) 2023 COVID-19 Vaccine (2023-2 5 season) 2024 Influenza Adult (#1) 2024 02/25/2016 Meningococcal B Vaccine Aged Out No l onger eligible based on patient's age to complete this topic Meningococcal Vaccine Aged Out No vicki wayne eligible based on patient's age to complete this topic Pneumococcal Vaccine: Pediat rics (0 to 5 Years) and At-Risk Patients (6 to 64 Years) Aged Out No longer eligi ble based on patient's age to complete this topic RSV Immunizations Under 20 Months Aged Out No longer eligible based on patient's age to complete this topic Insurance [employer] Care Teams Grades 1 Thru 5 Teacher Relationship Specialty Start Date End Date Gulshan Junior MD [address] [place] [address] [place] [address] PCP - General FAMILY PRACTICE 07/22/20
--- OUTSIDE RECORDS SUMMARY | 2024-08-04 22:00 | XMS_ITS | Clinical Summary ---
Author Organization [facility] Address [address] [place] [address] Care Team Providers Care Hearing Screen Coordinator Name Role Phone Unavailable Primary Care Provider Unavailabl e Source Comments [facility],non-owned Affiliates and Associated Physician Practices is amultiple site organization consisting of ambulatory clinics and hospital sitesin [place], [place], [place] and [place]. This disclosure is being madepursuant to the Care Everywhere program and may not contain all information available regarding this patient. Last updated 18.[facility] Allergies No known active allergies Medications * Be aware that medications may not be up to date on this document. Alwaysverify current medications with the patient. Medication Sig Dispensed Refills Start Date End Date Status triamcinolone acetonide (KENALOG) 0.1 % ointment Apply to affected area 2 times daily Avoid face and genital areas 15 g 01/20/2017 Active Family History Medical History Relation Name Comments Hypertension Mother Relation Name Status Comments Mother Social History Tobacco Use Types Packs/Day Years Used Date Smoking Tobacco: Never Smokeless Tobacco: Never Sex and Gender Information Value Date Recorded Sex Assigned at Not on file Gender Identity Not on file Sexual Orientation Not on file Last Filed Vital Signs Vital Sign Reading Time Taken Comments Blood Pressure 122/76 01/20/2017 3:49 PM CDT Pulse 65 01/20/2017 3:49 PM CDT Temperature 36.8 C (98.2 F) 01/20/2017 3:49 PM CDT Respiratory Rate 16 01/20/2017 3:49 PM CDT Oxygen Saturation 98% 01/20/2017 3:49 PM CDT Inhaled Oxygen Concentration - - Weight 79.4 kg (175 lb) 01/20/2017 3:49 PM CDT Height 167.6 cm (5' 6 ) 01/20/2017 3:49 PM CDT Body Mass Index 28.25 01/20/2017 3:49 PM CDT Plan of Treatment Health Maintenance Due Date Last Done Comments COLOGUARD (AGES 45-75) - COL ON CA SCREENING 1973 COLON MONITORING 1973 COLONOSCOPY - COLON CA SCREENING 1973 CT COLONOGRAPHY - COLON CA SCREENING 1973 Colorectal Cancer Screening 1973 FIT - COLON CA SCREENING 1973 FLEX SIG - COLON CA SCREENING 1973 LIPID TESTING 1973 MAMMOGRAM 1973 PAP SMEAR 1973 HIV SCREENING 02/02/1988 HEPATITIS C SCREENING 01/28/1991 DTAP/TDAP/TD VACCINES (1 - Tdap) 02/02/1992 HEPATITIS B VACCINE (1 of 3 - 19+ 3-dose series) 02/02/1992 SCREENING FOR DIABETES 01/20/2017 PNEUMOCOCCAL VACCINE 50+ (1 of 1 - PCV) 2023 ZOSTER VACCINE (1 of 2) 2023 COVID-19 VACCINE (1 - 2023-2 5 season) 2024 INFLUENZA VACCINE (#1) 2024 02/25/2016 DEPRESSION SCREENING 06/01/2024 HIB VACCINE Aged Out No longer eligi ble based on patient's age to complete this topic HPV VACCINE Aged Out No longer eligi ble based on patient's age to complete this topic MENINGOCOCCAL (Group B) VACCINE Aged Out No longer eligible based on patient's age to complete this topic MENINGOCOCCAL VACCINE Aged Out No vicki wayne eligible based on patient's age to complete this topic PNEUMOCOCCAL VACCINE Aged Out No long er eligible based on patient's age to complete this topic
--- OUTSIDE RECORDS SUMMARY | 2024-08-04 22:00 | XMS_ITS | Data Portability ---
Author Organization [facility] [employer], Main Office Address [address] [place] [address] Assessment No assessment recorded. Plan of Treatment Reminders Order Date Submit Date Provider Last Modified By Organization Details Last Modified Time Details Appointments None recorded. Lab pancreatic elastase, quant, stool 2023 024 TAB Not available 4 12:26:02 amylase + lipase, serum 2023 024 [facility] (Lab), [address] [place], [address], 4 16:05:03 CBC w/ auto diff 2022 023 [email or web address] Not available 3 08:41:53 rapid strep group A, throat 2022 023 [facility] [address] [place], [place], [address], 3 16:41:04 CMP, serum or plasma 2022 023 TAB Not available 3 18:50:09 CBC w/ auto diff 2022 023 TAB Not available 3 18:38:44 vitamin D, 25-hydroxy, total, serum 2022 023 [email or web address] Not available 3 08:55:47 TSH, serum, reflex free T4 2022 023 [email or web address] Not available 3 08:55:47 Referral None recorded. Procedures None recorded. Surgeries None recorded. Imaging CT, abdomen + pelvis, w/wo contrast [address], [address] [place] [address], [place], [address], 4 08:09:53 Medication Orders amoxicillin 875 mg-potassiu m clavulanate 125 mg tablet 2022 023 [id number], [address] [place], [address], 3 15:05:45 fluconazole 150 mg tablet 2022 023 [id number], [address] [place], [address], 3 20:57:42 hyoscyamine 0.125 mg sublingual tablet 2022 023 [address] [place], [address], 3 14:25:47 pantoprazol e 40 mg tablet,gerson yed release 2022 023 [facility], [address] [place], [address], 3 13:30:51 Patient TargetsNo targets recorded. Patient Instructions Encounter Date Encounter Id Patient Instructions Last Modified By Organization Details Last Modified Time 12/10/2022 [id number] PT WITH GERD NO BEING CONTROLLED BY FAMOTIDINE ANYMORE . TRY PANTOPRAZOLE 40 MG NEEDED . PT WITH SPASTIC ABD PAIN TRY HYOSCYAMINE SHORT ACTING NEEDED . F/U IN 6 MTHS [email or web address] Not available 12/10/2022 13:29:06 07/15/2023 [id number] PT WITH EPIGASTRIC PAIN RADIATING TO THE BACK. DIARRHEA DIFFICULT TO FLUSH /NAUSEA . DDX : EPI / PANCREATITIS . CHECK FECAL ELASTASE /AMYLASE /LIPASE . F/U IN 3 WEEKS . [email or web address] Not available 07/15/2023 13:43:46 09/09/2023 [id number] LOW FAT DIET . [email or web address] Not availabl e 09/09/2023 16:51:24 PT WITH EPI . PT WITH ONGOING DIARRHEE . I WILL INCREASE CREON DOSE 24K/76K/120K TO 2 CAPSULE TID. F/U IN 4 WEEKS . [email or web address] Not available 09/09/2023 16:51:16 Reason for Referral None Reported. Results Created Date Observation Date Name Description Value Unit Range Abnormal Flag Note LastModifiedBy Organization Detail LastModifiedTime 01/28/20 23 01/27/2023 CBC/C OMPLE TE BLD COUNT W/DIF F white blood cells 4.5 x10'3 /uL 4.2-10 .8 Not Available [facility] (Lab) [address] [place], [address], 01/27/2023 19:14:11 01/28/2001/27/2023 CBC/C OMPLE TE BLD COUNT W/DIF F red blood cells 5.16 x10'6 /uL 3.80-5 .20 Not Available [facility] (Lab) [address] [place], [address], 01/27/2023 19:14:11 01/28/2001/27/2023 CBC/C OMPLE TE BLD COUNT W/DIF F hemoglobin 15.8 g/dL 12.0-1 5.6 high Not Available [facility] (Lab) [address] [place], [address], 01/27/2023 19:14:11 01/28/2001/27/2023 CBC/C OMPLE TE BLD COUNT W/DIF F hematocrit 47.4 % 35.7-4 5.7 high Not Available [facility] (Lab) [address] [place], [address], 01/27/2023 19:14:11 01/28/2001/27/2023 CBC/C OMPLE TE BLD COUNT W/DIF F mean red cell volume 91.9 fL 82.0-9 9.0 Not Available [facility] (Lab) [address] [place], [address], 01/27/2023 19:14:11 01/28/20 23 01/27/2023 CBC/C OMPLE TE BLD COUNT W/DIF F mean red cell hemoglobin 30.6 pg 27.0-3 3.0 Not Available [facility] (Lab) [address] [place], [address], 01/27/2023 19:14:11 01/28/2001/27/2023 CBC/C OMPLE TE BLD COUNT W/DIF F mean RBC HGB concentratio n 33.3 g/dL 31.0-3 6.0 Not Available [facility] (Lab) [address] [place], [address], 01/27/2023 19:14:11 01/28/2001/27/2023 CBC/C OMPLE TE BLD COUNT W/DIF F red cell distribution width 13.8 % 11.8-1 5.5 Not Available [facility] (Lab) [address] [place], [address], 01/27/2023 19:14:11 01/28/2001/27/2023 CBC/C OMPLE TE BLD COUNT W/DIF F platelets 177 x10'3 /uL 150-40 0 Not Available [facility] (Lab) [address] [place], [address], 01/27/2023 19:14:11 01/28/2001/27/2023 CBC/C OMPLE TE BLD COUNT W/DIF F mean platelet volume 11.3 fL 9.0-12 .4 Not Available [facility] (Lab) [address] [place], [address], 01/27/2023 19:14:11 01/28/2001/27/2023 CBC/C OMPLE TE BLD COUNT W/DIF F neutrophils 53 % 39.0-7 2.0 Not Available [facility] (Lab) [address] [place], [address], 01/27/2023 19:14:11 01/28/2001/27/2023 CBC/C OMPLE TE BLD COUNT W/DIF F bands 13 % 0-3 high Not Available [facility] (Lab) [address] [place], [address], 01/27/2023 19:14:11 01/28/2001/27/2023 CBC/C OMPLE TE BLD COUNT W/DIF F lymphocytes 23 % 16.0-4 7.0 Not Available [facility] (Lab) [address] [place], [address], 01/27/2023 19:14:11 01/28/2001/27/2023 CBC/C OMPLE TE BLD COUNT W/DIF F monocytes 7 % 5.0-12 .0 Not Available [facility] (Lab) [address] [place], [address], 01/27/2023 19:14:11 01/28/2001/27/2023 CBC/C OMPLE TE BLD COUNT W/DIF F eosinophils 3 % 1.0-7. 0 Not Available [facility] (Lab) [address] [place], [address], 01/27/2023 19:14:11 01/28/2001/27/2023 CBC/C OMPLE TE BLD COUNT W/DIF F basophils 1 % 0.0-2. 0 Not Available [facility] (Lab) [address] [place], [address], 01/27/2023 19:14:11 01/28/20 23 01/27/2023 CBC/C OMPLE TE BLD COUNT W/DIF F immature granulocytes 0.2 % 0.00-0 .50 Not Available [facility] (Lab) [address] [place], [address], 01/27/2023 19:14:11 01/28/20 23 01/27/2023 CBC/C OMPLE TE BLD COUNT W/DIF F neutrophils, absolute count 2.61 x10'3 /uL 1.5-8. 0 Not Available [facility] (Lab) [address] [place], [address], 01/27/2023 19:14:11 01/28/2001/27/2023 CBC/C OMPLE TE BLD COUNT W/DIF F lymphocytes, absolute count 1.44 x10'3 /uL 1.07-3 .43 Not Available [facility] (Lab) [address] [place], [address], 01/27/2023 19:14:11 01/28/2001/27/2023 CBC/C OMPLE TE BLD COUNT W/DIF F monocytes, absolute count 0.31 x10'3 /uL 0.29-0 .99 Not Available [facility] (Lab) [address] [place], [address], 01/27/2023 19:14:11 01/28/2001/27/2023 CBC/C OMPLE TE BLD COUNT W/DIF F eosinophils, absolute count 0.11 x10'3 /uL 0.02-0 .53 Not Available [facility] (Lab) [address] [place], [address], 01/27/2023 19:14:11 01/28/2001/27/2023 CBC/C OMPLE TE BLD COUNT W/DIF F basophils, absolute count 0.03 x10'3 /uL 0.01-0 .08 Not Available [facility] (Lab) [address] [place], [address], 01/27/2023 19:14:11 01/28/20 23 01/27/2023 CBC/C OMPLE TE BLD COUNT W/DIF F immature granulocytes ,absolute 0.01 x10'3 /uL 0.00-0 .05 Not Available [facility] (Lab) [address] [place], [address], 01/27/2023 19:14:11 01/28/20 23 01/27/2023 CBC/C OMPLE TE BLD COUNT W/DIF F nucleated red blood cells 0.0 % -0 Not Available [facility] (Lab) [address] [place], [address], 01/27/2023 19:14:11 01/28/20 23 01/27/2023 CBC/C OMPLE TE BLD COUNT W/DIF F NRBC# 0.00 x10'3 /uL Not Available [facility] (Lab) [address] [place], [address], 01/27/2023 19:14:11 01/28/20 23 01/27/2023 CBC/C OMPLE TE BLD COUNT W/DIF F reactive lymphocytes OCCASI ONAL Not Available [facility] (Lab) [address] [place], [address], 01/27/2023 19:14:11 01/28/2001/27/2023 COMPR EHENS ALOK METAB OLIC PANEL sodium 134 mmol/ L 137-14 5 low Not Available [facility] (Lab) [address] [place], [address], 01/27/2023 18:50:09 01/28/2001/27/2023 COMPR EHENS ALOK METAB OLIC PANEL potassium 3.9 mmol/ L 3.5-5. 1 Not Available [facility] (Lab) [address] [place], [address], 01/27/2023 18:50:09 01/28/20 01/27/2023 COMPR EHENS ALOK METAB OLIC PANEL chloride 98 mmol/ L 98-107 Not Available [facility] (Lab) [address] [place], [address], 01/27/2023 18:50:09 01/28/20 23 01/27/2023 COMPR EHENS ALOK METAB OLIC PANEL carbon dioxide 27 mmol/ L 22-30 Not Available [facility] (Lab) [address] [place], [address], 01/27/2023 18:50:09 01/28/20 23 01/27/2023 COMPR EHENS ALOK METAB OLIC PANEL anion gap 12.9 mmol/ L 14-22 low Not Available [facility] (Lab) [address] [place], [address], 01/27/2023 18:50:09 01/28/20 23 01/27/2023 COMPR EHENS ALOK METAB OLIC PANEL glucose 101 mg/dL 70-99 high Not Available [facility] (Lab) [address] [place], [address], 01/27/2023 18:50:09 01/28/20 23 01/27/2023 COMPR EHENS ALOK METAB OLIC PANEL BUN 12 mg/dL 8-19 Not Available [facility] (Lab) [address] [place], [address], 01/27/2023 18:50:09 01/28/20 23 01/27/2023 COMPR EHENS ALOK METAB OLIC PANEL creatinine 0.88 mg/dL 0.66-1 .25 Not Available [facility] (Lab) [address] [place], [address], 01/27/2023 18:50:09 01/28/20 23 01/27/2023 COMPR EHENS ALOK METAB OLIC PANEL GFR >60 Refer ence Range : [place] GFR Healt hy Adult : >60 mL/mi n/1.7 3 m2 Chron ic Kidne y Disea se: 15-60 mL/mi n/1.7 3 m2 Kidne y Failu re: <15/m L/min /1.73 m2 www.n iddk. nih.g ov The MDRD study equat ion has not been valid ated in child say <18 years of age; pregn ant women ; the elder ly >85 years of age; or in some racia l or ethni c subgr oups, such as Hispa nics. Outsi de the valid ated josefina eters , estim ated GFR is less accur ate, requi ring clini fortino judgm ent on a case- by-ca se basis . Clini fortino inter preta tion for other races and ages must be made by the clini thai. The MDRD study equat ion has not been valid ated for the evalu ation of serum creat inine relat ed to nutri adrianna l statu s or medic ation usage . For perso ns <18 years of age, a pedia tric GFR calcu lator is avail able on the [facility] websi te: https ://ww w.kid gareth.o rg/pr ofess ional s/kdo qi/gf r_cal culat or Not Available [facility] (Lab) [address] [place], [address], 01/27/2023 18:50:09 01/28/20 23 01/27/2023 COMPR EHENS ALOK METAB OLIC PANEL alkaline phosphatase 57 U/L 38-126 Not Available [facility] (Lab) [address] [place], [address], 01/27/2023 18:50:09 01/28/20 23 01/27/2023 COMPR EHENS ALOK METAB OLIC PANEL alanine aminotransfe rase 38 U/L 0-35 high Not Available [facility] (Lab) [address] [place], [address], 01/27/2023 18:50:09 01/28/20 23 01/27/2023 COMPR EHENS ALOK METAB OLIC PANEL aspartate aminotransfe rase 52 U/L 15-37 high Not Available [facility] (Lab) [address] [place], [address], 01/27/2023 18:50:09 01/28/20 23 01/27/2023 COMPR EHENS ALOK METAB OLIC PANEL bilirubin, total 0.80 mg/dL 0.20-1 .30 Not Available [facility] (Lab) [address] [place], [address], 01/27/2023 18:50:09 01/28/20 23 01/27/2023 COMPR EHENS ALOK METAB OLIC PANEL calcium 9.1 mg/dL 8.4-10 .2 Not Available [facility] (Lab) [address] [place], [address], 01/27/2023 18:50:09 01/28/20 23 01/27/2023 COMPR EHENS ALOK METAB OLIC PANEL total protein 7.9 g/dL 6.3-8. 2 Not Available [facility] (Lab) [address] [place], [address], 01/27/2023 18:50:09 01/28/20 23 01/27/2023 COMPR EHENS ALOK METAB OLIC PANEL albumin 4.3 g/dL 3.4-5. 0 Not Available [facility] (Lab) [address] [place], [address], 01/27/2023 18:50:09 01/28/20 23 01/27/2023 COMPR EHENS ALOK METAB OLIC PANEL globulin 3.6 g/dL 2.6-4. 2 Not Available [facility] (Lab) [address] [place], [address], 01/27/2023 18:50:09 01/28/20 23 01/27/2023 COMPR EHENS ALOK METAB OLIC PANEL A/G ratio 1.2 ratio 1.0-2. 0 Not Available [facility] (Lab) [address] [place], [address], 01/27/2023 18:50:09 01/28/20 23 01/27/2023 VITAM IN D 25-HY DROXY vd25oh 35.3 NG/mL 30-100 Vitam in D Statu s: Defic ient: <20 ng/mL Insuf ficie nt: 20-29 ng/mL Suffi cient : 30-10 0 ng/mL Not Available [facility] (Lab) [address] [place], [address], 01/27/2023 18:57:56 01/28/2001/27/2023 TSH W/REF SANJAY FT4 TSH with reflex free T4 2.350 uIU/m L 0.465- 4.680 Not Available [facility] (Lab) [address] [place], [address], 01/27/2023 19:16:41 01/28/20 23 01/27/2023 rapid strep group A, throa t STREP A negati ve Not Available [facility] [address] [place], [place], [address], 01/27/2023 14:46:28 07/24/19 24 07/24/2023 CT, abdom en + pelvi s, w/ contr ast No observ ation record ed. [email or web address] [place] [address] [place] [address] [place], [address], 07/29/2023 16:41:07 Result Notes None recorded. Problems Name Problem SNOMED Code Status Onset Date Resolution Date Notes Provider Name and Address Organization Details Recorded Time Irritable bowel syndrome with diarrhea 315253449 Active 2021 Not Available [facility] 4 12:35:50 Abdominal pain 38819393 Active Not Available [facility] 4 12:35:50 Gastroesop hageal reflux disease without esophagiti s 825375775 Active 2021 Not Available [employer] 4 12:35:50 Rib pain 976272338 Active Not Available [facility] 4 12:35:50 Pain in right foot 1441236266268 07 Active Not Available [facility] 4 12:35:50 Viral disease 60530943 Active Not Available [facility] 4 12:35:50 Depressive disorder 89494542 Active Not Available [facility] 4 12:35:50 Acute pharyngiti s 617788801 Active Not Available [facility] 4 12:35:50 Sinusitis 26563816 Active Not Available [facility] 4 12:35:50 Umbilical hernia 285470219 Active Not Available [facility] 4 12:35:50 Nausea 591997265 Active Not Available [facility] 4 12:35:50 Streptococ fortino sore throat 65250196 Active Not Available [facility] 4 12:35:50 Reactive lymphadeno emigdio 371472406 Active Not Available [facility] 4 12:35:50 Anxiety 99135654 Active Not Available [facility] 4 12:35:50 Upper respirator y infection 12974988 Active Not Available [facility] 4 12:35:50 Hyperlipid emia 49158381 Active Not Available [facility] 4 12:35:50 Diarrhea 85891538 Active Not Available [facility] 4 12:35:50 Otitis media 24731207 Active Not Available [facility] 4 12:35:50 Hypercalce barbara 75825351 Active Not Available [facility] 4 12:35:50 Acid reflux 642862682 Active Not Available [facility] 4 12:35:50 Fatigue 48870985 Active Not Available [facility] 4 12:35:50 Tonsilliti s 04376025 Active Not Available [facility] 4 12:35:50 Open wound of lower leg 097051678 Active 2022 Not Available [facility] 4 12:35:50 Pain of left calf 5820619780970 109 Active 2022 Not Available [facility] 4 12:35:50 Hyperpigme ntation of skin 28797321 Active 2022 Not Available [facility] 4 12:35:50 Lymphedema of lower extremity 576345151 Active 2022 Not Available [facility] 4 12:35:50 Abdominal colic 2354925 Active 2022 Not Available [facility] 4 12:35:50 Mild dehydratio n 2577373271569 Active 2022 Not Available [facility] 4 12:35:50 Vitamin D deficiency 89281334 Active 2022 Not Available [facility] 4 12:35:50 Pain in throat 482009012 Active 2022 Not Available [facility] 4 12:35:50 Leukocytos is 313963267 Active 2022 Not Available [facility] 4 12:35:50 Deficiency of pancreatic elastase 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 Procedures Surgical History Date Name Laterality Status Provider Name and Address Organization Details Recorded Time 08/28/19 Wound Care-Podiatry completed Renee Correa RN [facility] [employer] 08/27/2022 10:56:15 section completed Not Available [facility] 07/30/2022 07:26:34 abdominoplasty completed Not Available [facility] 07/30/2022 07:26:34 Hernia Repair completed Not Available [facility] 07/30/2022 07:26:34 colonoscopy completed Not Available [facility] 07/30/2022 07:26:34 EGD completed Not Available [facility] 07/30/2022 07:26:34 Imaging Results Imaging Date Name Status LastModified by Organiz ation Details LastModified Time 07/24/2023 CT, abdomen + pelvis, w/ contrast completed [email or web address] [place] [facility] [address] [place] [address] Dr, [place], [address], 07/29/2023 16:41:07 Procedure Notes None recorded. Medical Equipment None Reported. Allergies Allergen ID Allergen Name Allergen Category Reaction Reaction Severity Criticality Documentation Date Start Date Code Code System Note Provider Name and Address Organization Details Recorded Time 92316 amoxicill in medicatio n Not available Not available Not available 07/30/2022 723 RxNorm Other react ions and sever ities : 'Adve rse react ion to subst ance' . Gulshan Alvarado MD [address] [facility] [address], [place], [address] [place] [address] [employer] 15:03:52 Medications Name Sig Start Date Stop Date Status Note LastModified by Organization Details LastModified Time cyclobenz aprine 10 mg tablet Take 1 tablet 3 times a day by oral route as needed. active Not Available Not Available No t Available terconazo le 0.4 % vaginal cream INSERT 1 APPLICAT OR(S)FUL EVERY DAY BY VAGINAL ROUTE FOR 7 DAYS. active Not Available Not Available No t Available atorvasta tin 20 mg tablet TAKE 1 TABLET BY MOUTH EVERY DAY IN THE MORNING 03/02 completed insuranc e does not want to cover , switched to fluvasta tin Not Available Not Available Not Available clindamyc in HCl 300 mg capsule TAKE 1 CAPSULE BY MOUTH EVERY 6 HOURS active Not Available Not Available No t Available azithromy booker 250 mg tablet Use as directed 08/27 completed Not Available Not Available Not Available fluconazo le 150 mg tablet TAKE 1 TABLET BY MOUTH EVERY DAY FOR 1 DAY active Not Available Not Available No t Available valacyclo vir 1 gram tablet TAKE 1 TABLET BY MOUTH EVERY 12 HOURS NEEDED active Not Available Not Available No t Available hydrocodo ne 5 mg-acetam inophen 325 mg tablet TAKE 1 TABLET BY MOUTH EVERY 4 HOURS NEEDED FOR PAIN 08/27 completed Not Available Not Available Not Available phenazopy ridine 200 mg tablet TAKE 1 TABLET BY MOUTH EVERY 6 HOURS FOR 2 DAYS NEEDED active Not Available Not Available No t Available atovaquon e 250 mg-progua nil 100 mg tablet TAKE 1 TABLET BY MOUTH EVERY DAY active Not Available Not Available No t Available metronida zole 0.75 % (37.5 mg/5 gram) vaginal gel INSERT ONE APPLICAT ORFUL VAGINALL Y AT BEDTIME FOR 5 NIGHTS active Not Available Not Available No t Available famotidin e 40 mg tablet TAKE 1 TABLET BY MOUTH EVERYDAY AT BEDTIME active Not Available Not Available No t Available terconazo le 0.8 % vaginal cream VAGINAL INSERT 1 APPLICAT OR FULL AT BEDTIME FOR 3 DAYS 09/26 completed Not Available Not Available Not Available metronida zole 500 mg tablet TAKE 1 TABLET BY MOUTH EVERY 8 HOURS FOR 10 DAYS active Not Available Not Available No t Available acyclovir 400 mg tablet TAKE 1 TABLET BY MOUTH TWICE A DAY 06/03 completed Not Available Not Available Not Available ciproflox acin 500 mg tablet TAKE 1 TABLET BY MOUTH EVERY 12 HOURS 08/27 completed Not Available Not Available Not Available omeprazol e 40 mg capsule,d elayed release TAKE 1 CAPSULE BY MOUTH EVERY DAY active Not Available Not Available No t Available tramadol 50 mg tablet Take 1 tablet every 6 hours by oral route as needed. active Not Available Not Available No t Available triamcino lone acetonide 0.1 % topical cream APPLY TO AFFECTED AREA TWICE A DAY FOR 7 DAYS active Not Available Not Available No t Available amoxicill in 875 mg tablet Take 1 tablet every 12 hours by oral route. 08/27 completed Not Available Not Available Not Available hyoscyami ne ER 0.375 mg tablet,ex tended release,1 2 hr TAKE 1 TABLET BY MOUTH EVERY 12 HOURS active Not Available Not Available No t Available dextroamp hetamine- amphetami ne ER 20 mg 24hr capsule,e xtend release TAKE 1 CAPSULE BY MOUTH EVERY DAY active Not Available Not Available No t Available doxycycli ne monohydra te 100 mg capsule TAKE 1 CAPSULE( S) TWICE A DAY BY ORAL ROUTE FOR 7 DAYS. 07/01 completed Not Available Not Available Not Available cephalexi n 500 mg capsule TAKE ONE CAPSULE BY MOUTH 3 TIMES A DAY UNTIL FINISHED 08/27 completed Not Available Not Available Not Available pantopraz ole 40 mg tablet,de layed release TAKE 1 TABLET BY MOUTH EVERY DAY BEFORE MEALS active Not Available Not Available No t Available Zithromax 200 mg/5 mL oral suspensio n TAKE 12.5 MILLILIT ERS (500 MG) BY ORAL ROUTE ONCE DAILY FOR 1 DAY THEN 6.25 MILLILIT ERS (250 MG) BY ORAL ROUTE ONCE DAILY FOR 4 DAYS 08/27 completed Not Available Not Available Not Available triamcino lone acetonide 0.1 % topical ointment APPLY TO AFFECTED AREA TWICE A DAY (AVOID FACE AND GENITAL AREA) 08/27 completed Not Available Not Available Not Available clotrimaz ole-betam ethasone 1 %-0.05 % topical cream APPLY TO AFFECTED AREA TWICE A DAY NEEDED active Not Available Not Available No t Available hyoscyami ne 0.125 mg sublingua l tablet PL[address] 1 TABLET NEEDED BY SUBLINGU AL ROUTE NEEDED FOR 90 DAYS. 2022 active Not Available Not Available Not Avai lable promethaz ine 25 mg tablet TAKE 1 TO 2 TABLETS BY MOUTH EVERY 4 HOURS NEEDED 08/27 completed Not Available Not Available Not Available methylphe nidate ER 20 mg tablet,ex tended release 09/26 completed Not Available Not Available Not Available fluvastat in 20 mg capsule Take 1 capsule every day by oral route in the morning for 90 days. 2023 active Not Available Not Available Not Avai lable omeprazol e 20 mg capsule,d elayed release TAKE 1 CAPSULE BY MOUTH EVERY DAY 11/08 completed Not Available Not Available Not Available pseudoeph edrine 30 mg tablet Take 1 tablet every 6 hours by oral route. active Not Available Not Available No t Available clindamyc in 2 % vaginal cream INSERT 1 APPLICAT ORFUL VAGINALL Y AT BEDTIME FOR 7 NIGHTS active Not Available Not Available No t Available acyclovir 200 mg capsule TAKE ONE CAPSULE BY MOUTH EVERY 4 HOURS FOR 5 DAYS active Not Available Not Available No t Available mupirocin 2 % topical ointment APPLY TOPICALL Y 3 TIMES A DAY 08/21 completed Not Available Not Available Not Available ergocalci ferol (vitamin D2) 1,250 mcg (50,000 unit) capsule TAKE 1 CAPSULE BY MOUTH EVERY WEEK active Not Available Not Available No t Available methylpre dnisolone 4 mg tablets in a dose pack TAKE 6 TABLETS ON DAY 1 DIRECTED ON PACKAGE AND DECREASE BY 1 TAB EACH DAY FOR A TOTAL OF 6 DAYS 07/01 completed Not Available Not Available Not Available amoxicill in 875 mg-potass ium clavulana te 125 mg tablet TAKE 1 TABLET BY MOUTH EVERY 12 HOURS FOR 10 DAYS active Not Available Not Available No t Available nitrofura ntoin monohydra te/macroc rystals 100 mg capsule TAKE 1 CAPSULE BY MOUTH TWICE DAILY 06/03 completed Not Available Not Available Not Available naproxen Has three days left 08/06 completed Not Available Not Available Not Available bimatopro st 0.03 % drops with applicato r, eyelash base APPLY 1 DROP TO APPLICAT OR AND APPLY TO UPPER EYELID, ALONG EYELASHE S ONCE DAILY AT NIGHTTIM E active Not Available Not Available No t Available Creon 24,000-76 ,000-120, 000 unit capsule,d elayed release TAKE 1 CAPSULE BY MOUTH THREE TIMES A DAY active Not Available Not Available No t Available H-Chlor 12 0.125 % solution CLEANSE WOUND DAILY AND NEEDED 08/27 completed Not Available Not Available Not Available 19 (with docusate) 29 mg iron-1 mg-25 mg tablet TAKE 1 TABLET BY MOUTH DAILY active Not Available Not Available No t Available Fluzone Quad (PF) 60 mcg (15 mcg x 4)/0.5 mL IM syringe active Not Available Not Available Not Available EluRyng 0.12 mg-0.015 mg/24 hr vaginal ring INSERT 1 VAGINALL Y ONCE A MONTH active Not Available Not Available No t Available Sutab 1.479-0.1 88-0.225 gram tablet DIRECTED active Not Available Not Available No t Available Vitals Date Recorded Body height Body mass index (BMI) Body weight Heart rate Oxygen saturation Oxygen saturation in Arterial blood by Pulse oximetry Systolic blood pressure Diastolic blood pressure Provider Name and Address Organization Details Last Updated DateTime 3 167.64 cm 27.1 kg/m2 04171.5 2 g 76 /min 96 % 96 % 142 mm[Hg] 86 mm[Hg] ANTIONETTE Tovar [place] - [facility] [employer] [facility] 3 12:52:30 Date Recorded Body height Body mass index (BMI) Body weight Body temperature Heart rate Oxygen saturation Oxygen saturation in Arterial blood by Pulse oximetry Systolic blood pressure Diastolic blood pressure Provider Name and Address Organization Details Last Updated DateTime 3 167.64 cm 26.3 kg/m2 47975.5 6 g 97.9 [degF] 100 /min 98 % 98 % 112 mm[Hg] 78 mm[Hg] Columba moore [facility] [employer] [facility] 3 14:25:57 Date Recorded Body height Body mass index (BMI) Body weight Body temperature Heart rate Oxygen saturation Oxygen saturation in Arterial blood by Pulse oximetry Systolic blood pressure Diastolic blood pressure Provider Name and Address Organization Details Last Updated DateTime 3 167.64 cm 27 kg/m2 16689.9 3 g 97.7 [degF] 73 /min 98 % 98 % 110 mm[Hg] 72 mm[Hg] Columba moore [facility] [employer] [facility] 3 12:23:15 Date Recorded Body height Body mass index (BMI) Body weight Provider Name and Address Organization Details Last Updated DateTime 07/15/2023 167.64 cm 27 kg/m2 04068.93 g [facility] [employer] [employer] [facility] 07/15/2023 12:45:41 Date Recorded Body height Body mass index (BMI) Body weight Provider Name and Address Organization Details Last Updated DateTime 09/09/2023 167.64 cm 27 kg/m2 52534.93 g [facility] [employer] [facility] 09/09/2023 14:21:17 Social History Question Answer Notes LastModified by Organizat ion Details LastModified Time Tobacco Smoking Status Never Smoker Not Available [employer] 07/30/2022 07:26:27 Do You Have An Advance Directive? Yes [id number] Information not available 07/30/2022 What Is Your Level Of Alcohol Consumption? Occasional [id number].53091 [id number] Information not available 07/30/2022 What Is Your Level Of Caffeine Consumption? Occasional Coffee Sometimes MIGRATION.[id number] Information not available 07/30/2022 How Much Tobacco Do You Chew? None MIGRATION.02547 51875 Information not available 07/30/2022 In The 14 Days Before Symptom Onset, Have You Had Close Contact With A Laboratory-confi rmed COVID-19 While That Case Was Ill? No MIGRATION.[id number] Information not available 07/30/2022 In The 14 Days Before Symptom Onset, Have You Had Close Contact With A Person Who Is Under Investigation For COVID-19 While That Person Was Ill? No MIGRATION.[id number] 11061 Information not available 07/30/2022 What Type Of Diet Are You Following? REGULAR MIGRATION.[id number] 14087 Information not available 07/30/2022 Which Illicit Or Recreational Drugs Have You Used? None MIGRATION.[id number] Information not available 07/30/2022 Do You Or Have You Ever Used E-cigarettes Or Vape? Never Used Electronic Cigarettes MIGRATION.[id number] 60033 Information not available 07/30/2022 What Is Your Occupation? Teacher MIGRATION.26292 45414 Information not available 07/30/2022 Are There Any Guns Present In Your Home? No MIGRATION.22580 04864 Information not available 07/30/2022 What Was The Date Of Your Most Recent Tobacco Screening? 02/26/2022 MIGRATION.[id number] [id number] Information not available 07/30/2022 Do You Or Have You Ever Used Smokeless Tobacco? Never Used Smokeless Tobacco MIGRATION.02992 09105 Information not available 07/30/2022 How Much Tobacco Do You Smoke? No MIGRATION.53046 92225 Information not available 07/30/2022 Do You Use Sunscreen Routinely? Yes MIGRATION.71844 64267 Information not available 07/30/2022 Sex: Unknown Functional Status Question Answer Note LastModified by Organizat ion Details LastModified Time What is your exercise level? None [id number] Information not available 07/30/2022 Mental Status None recorded. Family History Relationship Description Onset Age of this Age Resolved Age Notes LastModified by Organization Details LastModified Time Mother Hypertensive disorder [id number] Not available 07/30/2022 07:26:35 Mother Hypercholest erolemia [id number] Not available 07/30/2022 07:26:35 Father Hypercholest erolemia MIGRATION.[id number] Not available 07/30/2022 07:26:36 Medical History Condition Response DEPRESSION (INCLUDING POST ) Y BOWEL PROBLEMS Y HEARTBURN / REFLUX Y HIGH CHOLESTEROL / HYPERLIPIDEMIA Y Gynecological HistoryNo gynecological history recorded. Obstetrics History GPAL:G 0 P 0 0 0 0 Immunizations Vaccine Type Date Status Note Provider Nam e and Address Organization Details Recorded Time Tdap 8 completed Not Available [facility] 07/17/2023 12:35:51 Influenza, split virus, trivalent, preservative 5 completed Not Available [facility] 07/17/2023 12:35:51 Past Encounters Encounter ID Performer Location Encounter Start Date Encounter Closed Date Diagnosis/Indication Diagnosis SNOMED-CT Code Diagnosis ICD10 Code Diagnosis Note [id number] [facility] Karen Kendall, [place] [address] 07/31/2020 00:00:00 07/31/2020 13:44:36 [id number] [facility] Karen Kendall, [place] [address] 09/06/2020 00:00:00 09/06/2020 20:37:09 [id number] _ATHENA_M IGRATION_ DEFAULT_1 _1 , 09/26/2020 00:00:00 09/26/2020 11:30:46 [id number] _ATHENA_M IGRATION_ DEFAULT_1 _1 , 12/12/2020 00:00:00 12/12/2020 11:06:08 [id number] _ATHENA_M IGRATION_ DEFAULT_1 _1 , 03/20/2021 00:00:00 03/20/2021 10:45:01 [id number] [facility] Karen Kendall, [place] [address] 08/27/2021 00:00:00 08/27/2021 19:42:46 [id number] _ATHENA_M IGRATION_ DEFAULT_1 _1 , 08/28/2021 00:00:00 08/28/2021 17:08:38 [id number] [facility] Karen Kendall, [place] [address] 09/30/2021 00:00:00 09/30/2021 12:50:08 [id number] [facility] Karen llanneliese [address] [facility] [place] [address] 11/29/2021 00:00:00 11/30/2021 11:29:25 [id number] _ATHENA_M IGRATION_ DEFAULT_1 _1 , 02/26/2022 00:00:00 02/26/2022 12:03:30 [id number] Gulshan Alvarado MD [facility] Karen [place]usto [address] [place] [address] [place] [address] 08/06/2022 13:59:20 08/06/2022 14:28:47 Open wound of lower leg 017926247 S81.801A Pain of left calf 877187 6423 610837 M79.[id number] [facility] [address] [place] [address] 08/27/2022 10:22:03 08/27/2022 11:32:55 Hyperpigmentation of skin 92701710 L81.9 hyperpigme nted scar secondary to wound, healedrevi ewed silicone sheeting we the patient as well as Mederma usageconti nue chronic compressio n for lymphedema follow-up as needed Lymphedema of lower extremity 516494754 I89.0 continue chronic compressio n therapy [id number] Cleo Figueroa MD [facility] General Surgery 4 [facility], [facility] [address] [place] [address] 12/10/2022 12:50:22 12/10/2022 14:04:02 Gastroesophageal reflux disease without esophagitis 822305915 K21.9 Abdominal pain 76473853 R10.9 Abdominal colic 4113475 R10.83 [id number] Gulshan Alvarado MD [facility] Karen [address] [place] [address] 01/27/2023 14:18:11 01/27/2023 15:07:15 Mild dehydration 9303625923 108 E86.0 F/u in 1 week. Thyroid di sorder screening 056187421 Z13.29 Vitamin D deficiency 347 25701 E55.9 Pain in throat 315258679 R07.0 [id number] Gulshan Alvarado MD [facility] Family Practice [facility] [address] , [place] [address] 02/03/2023 12:10:10 02/03/2023 12:44:26 Leukocytosis 139586406 D72.829 Finish out antibiotic . SxRx [id number] Cleo Figueroa MD [facility] General Surgery [address], [address] [address] 07/15/2023 12:45:16 07/15/2023 13:23:01 Gastroesophageal reflux disease without esophagitis 875479627 K21.9 Abdominal pain 96391975 R10.9 Abdominal colic 6728948 R10.83 Diarrhea 84566064 R19.7 [id number] Cleo Figueroa MD [facility] General Surgery [address] [address] 09/09/2023 14:17:14 09/09/2023 14:50:41 Gastroesophageal reflux disease without esophagitis 323912206 K21.9 Abdominal colic 5655575 R10.83 Exocrine p ancreatic insufficiency 68216628 K86.81 Health Concerns Section Related Observation LastModified by Organization Detai ls LastModified Time None Recorded Concern Status LastModified by Organization Details LastModified Time None Recorded Advance Directives Directive Y: Payers Encounter Date Sequence Insurance Name Policy Number Policy Mondragon Covered Member ID Mondragon Member ID Guarantor Name 12/10/2022 1 [facility] ON OR AFTER 11/29/20 (MEDICAID REPLACEMENT - HMO) Mira Solis [id number] Mira Solis 01/27/2023 1 [facility] ON OR AFTER 11/29/20 (MEDICAID REPLACEMENT - HMO) Mira Solis [id number] Mira Solis 02/03/2023 1 [facility] ON OR AFTER 11/29/20 (MEDICAID REPLACEMENT - HMO) Mira Solis [id number] Mira Solis 07/15/2023 1 [facility] - DOS ON OR AFTER 20 (MEDICAID REPLACEMENT - HMO) Mira Solis [id number] Mira Solis 09/09/2023 1 [facility] - DOS ON OR AFTER 20 (MEDICAID REPLACEMENT - HMO) Mira Solis [id number] Mira Solis Notes Date Note Type Note Provider Name and Address Organization Details Recorded Time 12/10/2022 text/html PT WAS SEEN IN THE OFFICE TODAY FOR A F/U. PT C/O ABD PAIN PRECEEDED HER BM AND SX LASTED 24 HRS . SHE WAS OUT OF HER HYOSCYAMINE LONG ACTING MEDS. PT HAS GERD THAT HER SX ARE MORE FREQUENT AND FAMOTIDINE IS NOT EFFECTIVE BEFORE . SHE HAS NOT CHANGED HER DIET . Cleo Figueroa MD [address] [address], [place], [address], [employer] 12/10/2022 13:31:06 01/27/2023 text/html Here today not feeling well. Has fever tmax 102 and now low grade. Went to UC and took 2 COVID tests and all was negative. Went to ER on Thursday. Did take a blood count. Can not doing anything without feeling like going to pass out. Has skin discoloration. Has diarrhea and not eating. Can hardly do anything gets dizziness. Gulshan Alvarado MD [address], [place], [address], [employer] 01/27/2023 20:58:50 02/03/2023 text/html Here today for f/u is still taking antibiotics. Feeling much better! Gulshan Alvarado MD [address], [place], [address], [employer] 02/04/2023 06:29:54 07/15/2023 text/html MIRA WAS SEEN IN THE OFFICE TODAY FOR A F/U .PT REPORTS THAT SHE WAS IN SMITH X 5 WEEKS . SHE C/O EPIGASTRIC PAIN GOING TO THE BACK . SHE DID HAVE A FEW GLASSES OF WINE . SHE TRIED THR HYOSCYAMINE WITH [facility] . SHE REPORTS DIARRHEA THAT IS OILY AND DIFFICULT TO FLUSH . SHE DENIES WT LOSS . Cleo Figueroa MD [address] [address], [place], [address], [facility] [employer] [facility] 07/15/2023 13:44:08 09/09/2023 text/html MIRA WAS SEEN IN THE OFFICE TODAY FOR A F/U. PT WAS LAST SEEN IN THE OFFICE C/O EPIGASTRIC PAIN RADIATING TO HER BACK. CT ABD WAS NORMAL .FECAL ELASTASE WAS 124 INDICATING MODERATE EPI . FANNY WAS RXED . TODAY SHE REPORTS THAT SHE HAS DIARRHEA . WHEN SHE EATS PIZZA AND EATS FRIED FOODS SX INCREASES . Cleo Figueroa MD [address], [place], [address], [facility] [facility] 09/09/2023 16:51:57 OBGyn Episode No OBEpisode recorded.
--- OUTSIDE RECORDS SUMMARY | 2024-08-04 22:00 | XMS_ITS | Referral Summary ---
Author Organization [facility] Address [address] [place] [address] Care Team Providers Care Harvesting Manager Name Role Phone Unavailable Primary Care Provider Unavailabl e Source Comments [facility],non-owned Affiliates and Associated Physician Practices is amultiple site organization consisting of ambulatory clinics and hospital sitesin [place], [place], [place] and [place]. This disclosure is being madepursuant to the Care Everywhere program and may not contain all information available regarding this patient. Last updated 18.[facility] [employer] Allergies No known active allergies Medications * Be aware that medications may not be up to date on this document. Alwaysverify current medications with the patient. Medication Sig Dispensed Refills Start Date End Date Status triamcinolone acetonide (KENALOG) 0.1 % ointment Apply to affected area 2 times daily Avoid face and genital areas 15 g 01/20/2017 Active Social History Tobacco Use Types Packs/Day Years [...] 01/20/2017 3:49 PM CDT Plan of Treatment Not on file
--- OUTSIDE RECORDS SUMMARY | 2024-08-04 22:00 | XMS_ITS | Patient Health Summary ---
Author Organization [facility] Address [address] [place] [address] Care Team Providers Care Rug Cleaner Helper Name Role Phone Unavailable Primary Care Provider Unavailabl e Note from [facility],non-owned Affiliates and Associated Physician Practices is amultiple site organization consisting of ambulatory clinics and hospital sitesin [place], [place], [place] and [place]. This disclosure is being madepursuant to the Care Everywhere program and may not contain all information available regarding this patient. Last updated 18.[facility] [employer] Allergies No known active allergies Medications * Be aware that medications may not be up to date on this document. Alwaysverify current medications with the patient. * triamcinolone acetonide (KENALOG) 0.1 % ointment(Started 01/20/2017) Apply to affected area 2 times daily Avoid face and genital areas Social History Tobacco Use Types Packs/Day Years [...] Mass Index 28.25 01/20/2017 3:49 PM CDT Procedures * GROSS + MICRO EXAM(Performed 06/24/2000) Results * GROSS + MICRO EXAM (06/24/2000 8:40 AM WELL POINT PUMPING SUPERVISOR) Result CASE NUMBER [id number] Comment: ORDERING PHYSICIAN RAMYA ABDULLAHI SPECIMEN TYPE Placenta 3rd Trimes Date 06/24/2000 Physician Ahsan Abdullahi Gross Description The specimen is received in a formalin-filled container labeled with the patient's name and placenta . The specimen consists of a single placenta with attached membranes and cord which weighs 615 grams in toto. The placental disc measures 15 x 17 x up to 3 cm. in thickness. The membranes are a translucent pinkish-kauffman and are attached marginally. The umbilical cord has a somewhat eccentric insertion, inserting up to 3.5 cm. from the nearest margin. The umbilical cord measures 25 cm. in length and up to 1.4 cm. in thickness. On cut section, three vessels are identified. The surface is a glistening bluish-kauffman with the usual vascular arcade and no apparent nodules. The maternal surface is a soft deep pinkish-kauffman with a moderate amount of adherent blood clot. On serial sectioning the parenchyma is deep beefy-red with no apparent areas of infarction or lesion noted grossly. Property Technician sections are submitted as follows cross section of umbilical cord and membranes, cassette A telephone sales representative section of surface in cassette B and telephone sales representative section of maternal surface in cassette C. MC/bk Microscopic Exam Microscopic examination reveals sections of chorioamniotic membranes with no evidence of inflammation or necrosis. The umbilical cord contains three vascular channels with no evidence of funisitis or thrombosis. The chorionic villi are small, mature, well vascularized with no evidence of villitis or infarction present. Gm/ Diagnosis I. Placenta, excision A. Mature placenta, 630 gms. B. Three vessel umbilical cord with no pathologic changes C. Chorioamniotic membranes with no pathologic changes Director Of Strategic Sourcing [employer] Pathologist Lacey Aj M.D. [place]. 06/25/2000 1454 <1> CPT code 8307/17785 MISCELLANEOUS SAMPLES / Unknown 06/24/2000 8:40 AM WELL POINT PUMPING SUPERVISOR 06/24/2000 8:40 AM WELL POINT PUMPING SUPERVISOR Historical Provider LAB - PATHOLOGY/C YTOLOGY ORDERABLES
--- OUTSIDE RECORDS SUMMARY | 2024-08-04 22:00 | XMS_ITS | Referral Summary ---
Author Organization [address] Address [facility] [place] [address] Care Team Providers Care Proctologist Name Role Phone Kwan Piedra DO Primary Care Provider [phone] Encounters Date Type Department Care Team Description 07/04/2024 8:30 AM SHELLFISH HARVESTER Office Visit [facility] Cardiology [address] [place] [address] Genny To NP Abnormal ECG; Chest pain, unspecified type; Frequent PVCs; Mixed hyperlipidemia from Last 3 Months Allergies Active Allergy Reactions Criticality Noted Date Comments Penicillins Other (See comments) Low 03/06/2016 Yeast infection Caused Yeast Infection Medications atorvastatin (LIPITOR) 20 mg tablet Take 1 tablet (20 mg total) by mouth daily Active bimatoprost (LATISSE) 0.03 % ophthalmic solution Administer into both eyes nightly Place 1 drop on applicator and apply along skin of upper eyelid at base of eyelashes daily at bedtime; rpt for 2nd eye with clean applicator Active etonogestreL-et hinyl estradioL (NUVARING, ELURYNG) 0.12-0.015 mg/24 hr vaginal ring Insert 1 each into the vagina every 28 (twenty-eight) days Insert vaginally and leave in place for 3 consecutive weeks, then remove for 1 week. Active famotidine (PEPCID) 40 mg tablet Take 1 tablet (40 mg total) by mouth daily Active hyoscyamine ER (LEVBID) 0.375 mg 12 hr tablet Take 1 tablet (0.375 mg total) by mouth every 12 (twelve) hours as needed Active omeprazole (PriLOSEC) 40 mg capsule Take 1 capsule (40 mg total) by mouth as needed Active valACYclovir (VALTREX) 1 gram tablet Take 1 tablet (1,000 mg total) by mouth 2 (two) times a day Active traMADoL (ULTRAM) 50 mg tablet Take 1 tablet (50 mg total) by mouth every 6 (six) hours Active metroNIDAZOLE (FLAGYL) 500 mg tablet Take 1 tablet (500 mg total) by mouth 2 (two) times a day [address] (PROTONIX) 40 mg EC tablet as needed 3 Active triamcinolone (KENALOG) 0.1 % creamIndication s:skin rash Apply topically 2 (two) times a day for 7 days 30 g 3 Active Additional Information Patient not taking.Reported on 07/04/2024 Active Problems Problem Noted Date Diagnosed Date Preoperative cardiovascular examination 08/02/19 Gastroesophageal reflux disease without esophagi tis 08/01/2022 Palpitations 04/21/2022 Frequent PVCs 02/21/2022 Elevated blood pressure reading 02/21/2022 Other chest pain 01/03/2022 Abnormal ECG 01/03/2022 Mixed hyperlipidemia 01/03/2022 Social History Tobacco Use Types Packs/Day Years Used Date Smoking Tobacco: Never Passive Smoke Exposure: Never Smokeless Tobacco: Never Tobacco Cessation:Counseling Given: Not Answered Personal Safety Answer Date Recorded Have you ever been in or are you currently in a harmful physical or emotional relationship or is someone making you feel afraid or unsafe? Denies 11/23/2023 Comments No Sex and Gender Information Value Date Recorded Sex Assigned at Not on file Legal Sex Female 6:28 PM SHELLFISH HARVESTER Gender Identity Not on file Sexual Orientation Not on file Last Filed Vital Signs Vital Sign Reading Time Taken Comments Blood Pressure 144/92 07/04/2024 8:33 AM SHELLFISH HARVESTER Pulse 80 07/04/2024 8:33 AM SHELLFISH HARVESTER Temperature 37.1 C (98.7 F) 02/15/2024 7:24 PM CDT Respiratory Rate 20 02/15/2024 7:24 PM CDT Oxygen Saturation 99% 07/04/2024 8:33 AM SHELLFISH HARVESTER Inhaled Oxygen Concentration - - Weight 79.4 kg (175 lb) 07/04/2024 8:33 AM SHELLFISH HARVESTER Height 167.6 cm (5' 6 ) 07/04/2024 8:33 AM SHELLFISH HARVESTER Body Mass Index 28.25 07/04/2024 8:33 AM SHELLFISH HARVESTER Plan of Treatment Not on file Procedures Procedure Name Priority Date/Time Associated Diagnosis Comments POCT LIPID PANEL Routine 07/04/2024 8:46 AM SHELLFISH HARVESTER Mixed hyperlipidemia from Last 3 Months Results * POCT lipid panel (07/04/2024 8:46 AM SHELLFISH HARVESTER) Cholesterol, POC 166 mg/dL HDL, POC 39 mg/dL Triglycerides, POC 159 mg/dL LDL Cholesterol POC 95 mg/dL Chol/HDL Ratio, POC 2.4 Non-HDL Cholesterol, POC 127 mg/dL Cholesterol Total, POC 166 mg/dL Capillary blood 07/04/2024 8 :46 AM SHELLFISH HARVESTER Genny To NP POINT OF CARE TEST ORDERA BLES Final Result from Last 3 Months Insurance [facility] Care Teams Proctologist Relationship Specialty Start Date End Date Kwan Piedra DO [address] [place] [address] [place] [address] [id number] PCP - General Internal Medicine 07/04/24
--- OUTSIDE RECORDS SUMMARY | 2024-08-04 22:00 | XMS_ITS | Clinical Summary ---
Author Organization [facility] Address [address] [place] [address] Phone Care Team Providers Care Packaging Line Attendant Name Role Phone [facility], External Provider Primary Care Provider U navailable Allergies No known active allergies Medications No known medications Social History Tobacco Use Types Packs/Day Years Used Date Smoking Tobacco: Never Smokeless Tobacco: Never Alcohol Use Standard Drinks/Week Comments Yes 0 (1 standard drink = 0.6 oz pur e alcohol) Comments Unknown Sex and Gender Information Value Date Recorded Sex Assigned at Not on file Legal Sex Female 9:50 AM CDT Gender Identity Not on file Sexual Orientation Not on file Last Filed Vital Signs Vital Sign Reading Time Taken Comments Blood Pressure 159/89 01/26/2018 10:38 AM CDT Pulse - - Temperature 36.9 C (98.5 F) 01/26/2018 10:38 AM CDT Respiratory Rate 18 01/26/2018 10:38 AM CDT Oxygen Saturation 99% 01/26/2018 10:38 AM CDT Inhaled Oxygen Concentration - - Weight 79.4 kg (175 lb) 01/26/2018 10:38 AM CDT Height 167.6 cm (5' 6 ) 01/26/2018 10:38 AM CDT Body Mass Index 28.25 01/26/2018 10:38 AM CDT Plan of Treatment Health Maintenance Due Date Last Done Comments DTAP/TDAP/TD VACCINES (1 - Tdap) 02/02/1992 HEPATITIS B VACCINES (1 of 3 - 19+ 3-dose series) 07/1991 CERVICAL CANCER SCREENING 2003 BREAST CANCER SCREENING 2013 COLORECTAL SCREENING 2018 Colorectal Cancer Screening 2018 FIT-DNA Q 3 years 2018 FIT/FOBT Q 1 year 2018 Flex Sig/CT Colonography Q 5 years 2018 ZOSTER VACCINE (1 of 2) 2023 INFLUENZA VACCINE (#1) 2023 Insurance [facility] MEDICAID Care Teams Packaging Line Attendant Relationship Specialty Start Date End Date [facility], External Provider [address] [place] [address] PCP - General 01/26/18
--- OUTSIDE RECORDS SUMMARY | 2024-08-04 22:00 | XMS_ITS | Clinical Summary ---
Author Organization [facility] Address [address] [place] [address] Care Team Providers Care Industrial Truck Mechanic Name Role Phone Kwan Piedra DO Primary Care Provider [phone]- [phone] Allergies Active Allergy Reactions Criticality Noted Date [...] 01/03/2022 Abnormal ECG 01/03/2022 Mixed hyperlipidemia 01/03/2022 Encounters Date Type Department Care Team Description 07/04/2024 8:30 AM DIETITIAN ASSISTANT Office Visit [facility] Cardiology [address] [facility] [address] [place] [phone] Genny To NP Abnormal ECG; Chest pain, unspecified type; Frequent PVCs; Mixed hyperlipidemia from Last 3 Months Surgical History Surgery Date Site/Laterality Comments HERNIA REPAIR SECTION Medical History Medical History Date Comments Chest pain Hypertension Hyperlipidemia Anxiety and depression Acid reflux Headache Family History Medical History Relation Name Comments Hyperlipidemia Father Heart disease Maternal Grandfather Hyperlipidemia Mother Hypertension Mother Relation Name Status Comments Father Alive Maternal Grandfather Mother Alive Social History Tobacco Use Types [...] on file Legal Sex Female 6:28 PM DIETITIAN ASSISTANT Gender Identity Not on file Sexual Orientation Not on file Obstetrics History Last Filed Vital Signs Vital Sign Reading Time Taken Comments Blood Pressure 144/92 07/04/2024 8:33 AM DIETITIAN ASSISTANT Pulse 80 07/04/2024 8:33 AM DIETITIAN ASSISTANT Temperature 37.1 C (98.7 F) 02/15/2024 7:24 PM CDT Respiratory Rate 20 02/15/2024 7:24 PM CDT Oxygen Saturation 99% 07/04/2024 8:33 AM DIETITIAN ASSISTANT Inhaled Oxygen Concentration - - Weight 79.4 kg (175 lb) 07/04/2024 8:33 AM DIETITIAN ASSISTANT Height 167.6 cm (5' 6 ) 07/04/2024 8:33 AM DIETITIAN ASSISTANT Body Mass Index 28.25 07/04/2024 8:33 AM DIETITIAN ASSISTANT Plan of Treatment Health Maintenance Due Date Last Done Comments Breast Cancer Screening-Mammogram 1973 Cervical Cancer Screening 1973 Colon Cancer Screening-Colonoscopy 1973 Depression Screening 1973 Hepatitis C Screening 1973 Regular Well Visit/Exam 18-64 1991 DTaP/Tdap/Td Vaccine (7 - Td or Tdap) 04/24/2018 04/24/2008, 11/20/1988, 12/30/1978, Additional history exists Zoster Vaccine (1 of 2) 2023 Covid-19 Vaccine ( - season) 2024 08/31/2020, 08/10/2020 Influenza Vaccine (#1) 2024 , 02/05/2019, 02/25/2016, Additional history exists Hepatitis B Screening Completed 04/09/2016 Pneumococcal vaccine <65 Aged Out No longer eligible based on patient's age to complete this topic Procedures Procedure Name Priority Date/Time Associated Diagnosis Comments POCT LIPID PANEL Routine 07/04/2024 8:46 AM DIETITIAN ASSISTANT Mixed hyperlipidemia from Last 3 Months Results * POCT lipid panel (07/04/2024 8:46 AM DIETITIAN ASSISTANT) Cholesterol, POC 166 mg/dL HDL, POC 39 mg/dL Triglycerides, POC 159 mg/dL LDL Cholesterol POC 95 mg/dL Chol/HDL Ratio, POC 2.4 Non-HDL Cholesterol, POC 127 mg/dL Cholesterol Total, POC 166 mg/dL Capillary blood 07/04/2024 8 :46 AM DIETITIAN ASSISTANT Genny To NP POINT OF CARE TEST ORDERA BLES Final Result from Last 3 Months Insurance [facility] Care Teams Industrial Truck Mechanic Relationship Specialty Start Date End Date Kwan Piedra DO [facility] [address] [place] [id number] PCP - General Internal Medicine 07/04/24
[2024-08-04 22:07] VITALS: TEMP 36.7
[2024-08-04 22:27] VITALS: BP 180/96; PULSE 87; RESP 16; O2SAT 99
[2024-08-05 01:26] VITALS: BP 144/87; PULSE 80; RESP 17; O2SAT 98
--- OUTSIDE RECORDS SUMMARY | 2024-08-05 01:36 | XMS_ITS | Clinical Summary ---
Author Organization [facility] [place] [facility] Address [address] [place] [address] Care Team Providers Care Tire Spotter Name Role Phone Kwan Piedra DO Primary Care Provider +1- [phone] Allergies Active Allergy Reactions Criticality Noted Date [...] Department Care Team Description 07/04/2024 8:30 AM JAPANESE INTERPRETER Office Visit [facility] Cardiology [address] [facility] [address] [place] [phone] Genny To NP Abnormal ECG; Chest pain, [...] on file Legal Sex Female 6:28 PM JAPANESE INTERPRETER Gender Identity Not on file Sexual Orientation Not on file Obstetrics History Last Filed Vital Signs Vital Sign Reading Time Taken Comments Blood Pressure 144/92 07/04/2024 8:33 AM JAPANESE INTERPRETER Pulse 80 07/04/2024 8:33 AM JAPANESE INTERPRETER Temperature 37.1 C (98.7 F) 02/15/2024 7:24 PM CDT Respiratory Rate 20 02/15/2024 7:24 PM CDT Oxygen Saturation 99% 07/04/2024 8:33 AM JAPANESE INTERPRETER Inhaled Oxygen Concentration - - Weight 79.4 kg (175 lb) 07/04/2024 8:33 AM JAPANESE INTERPRETER Height 167.6 cm (5' 6 ) 07/04/2024 8:33 AM JAPANESE INTERPRETER Body Mass Index 28.25 07/04/2024 8:33 AM JAPANESE INTERPRETER Plan of Treatment Health Maintenance Due Date [...] POCT LIPID PANEL Routine 07/04/2024 8:46 AM JAPANESE INTERPRETER Mixed hyperlipidemia from Last 3 Months Results * POCT lipid panel (07/04/2024 8:46 AM JAPANESE INTERPRETER) Cholesterol, POC 166 mg/dL HDL, POC 39 mg/dL Triglycerides, POC 159 mg/dL LDL Cholesterol POC 95 mg/dL Chol/HDL Ratio, POC 2.4 Non-HDL Cholesterol, POC 127 mg/dL Cholesterol Total, POC 166 mg/dL Capillary blood 07/04/2024 8 :46 AM JAPANESE INTERPRETER Genny To NP POINT OF CARE TEST ORDERA BLES Final Result from Last 3 Months Insurance [facility] Care Teams Tire Spotter Relationship Specialty Start Date End Date Kwan Piedra DO [facility] [facility] [address] [place] [id number] PCP - General Internal Medicine 07/04/24
--- OUTSIDE RECORDS SUMMARY | 2024-08-05 01:36 | XMS_ITS | Patient Health Record ---
Author Organization [facility] Urgent Care - So [facility] Address [address] [place] [address] Care Team Providers Care Route Aide Name Role Phone Marcial Torres [phone] Allergies No Known Allergies Reason For Referral No Information Plan Of Treatment No Information Insurance Providers Payer Name Payer Address Payer Phone Subscriber Number Group Number Insured Name Patient Relationship to Insured Coverage Start Date Coverage End Date Self Pay - Time of Service Payment [place] for submission [place] [id number] Mira Solis Self - patient is the insured Medical (General) History Surgical History Surgery Date(Month/Year)
--- OUTSIDE RECORDS SUMMARY | 2024-08-05 01:36 | XMS_ITS | Referral Summary ---
Author Organization [address] Address [facility] [place] [address] Care Team Providers Care Baby Counselor Name Role Phone Kwan Piedra DO Primary Care Provider +1- [phone] Encounters Date Type Department Care Team Description 07/04/2024 8:30 AM SHIFT SUPERINTENDENT Office Visit [facility] Cardiology [address] [place] [address] Genny To NP Abnormal ECG; [...] on file Legal Sex Female 6:28 PM SHIFT SUPERINTENDENT Gender Identity Not on file Sexual Orientation Not on file Last Filed Vital Signs Vital Sign Reading Time Taken Comments Blood Pressure 144/92 07/04/2024 8:33 AM SHIFT SUPERINTENDENT Pulse 80 07/04/2024 8:33 AM SHIFT SUPERINTENDENT Temperature 37.1 C (98.7 F) 02/15/2024 7:24 PM CDT Respiratory Rate 20 02/15/2024 7:24 PM CDT Oxygen Saturation 99% 07/04/2024 8:33 AM SHIFT SUPERINTENDENT Inhaled Oxygen Concentration - - Weight 79.4 kg (175 lb) 07/04/2024 8:33 AM SHIFT SUPERINTENDENT Height 167.6 cm (5' 6 ) 07/04/2024 8:33 AM SHIFT SUPERINTENDENT Body Mass Index 28.25 07/04/2024 8:33 AM SHIFT SUPERINTENDENT Plan of Treatment Not on file Procedures Procedure Name Priority Date/Time Associated Diagnosis Comments POCT LIPID PANEL Routine 07/04/2024 8:46 AM SHIFT SUPERINTENDENT Mixed hyperlipidemia from Last 3 Months Results * POCT lipid panel (07/04/2024 8:46 AM SHIFT SUPERINTENDENT) Cholesterol, POC 166 mg/dL HDL, POC 39 mg/dL Triglycerides, POC 159 mg/dL LDL Cholesterol POC 95 mg/dL Chol/HDL Ratio, POC 2.4 Non-HDL Cholesterol, POC 127 mg/dL Cholesterol Total, POC 166 mg/dL Capillary blood 07/04/2024 8 :46 AM SHIFT SUPERINTENDENT Genny To NP POINT OF CARE TEST ORDERA BLES Final Result from Last 3 Months Insurance [facility] Care Teams Baby Counselor Relationship Specialty Start Date End Date Kwan Piedra DO [address] [facility] [address] [place] [id number] PCP - General Internal Medicine 07/04/24
--- OUTSIDE RECORDS SUMMARY | 2024-08-05 01:36 | XMS_ITS | Clinical Summary ---
Author Organization [facility] Address [address] [facility] [place] [address] Care Team Providers Care Floor Tech Name Role Phone Unavailable Primary Care Provider Unavailabl e Source Comments [facility],non-owned Affiliates and Associated Physician Practices is amultiple site organization consisting of ambulatory clinics and hospital sitesin [place], [place], [place] and [place]. This disclosure is being madepursuant to the Care Everywhere program and may not contain all information available regarding this patient. Last updated 18.[facility] Allergies No known active allergies Medications * [...]
--- OUTSIDE RECORDS SUMMARY | 2024-08-05 01:36 | XMS_ITS | Clinical Summary ---
Author Organization [facility] Address [address], [address] [address] Phone Care Team Providers Care Overnight Cashier Name Role Phone Carlos Almeida MD Unavailable [phone] Gulshan Alvarado MD Primary Care Provider [...] AM CDT Pulse 87 07/30/2018 12:15 PM COIL WINDING SUPERVISOR Temperature 37.1 C (98.8 F) 08/31/2018 9:40 AM CDT Respiratory Rate 16 08/31/2018 9:40 AM CDT Oxygen Saturation 98% 07/30/2018 12:15 PM COIL WINDING SUPERVISOR Inhaled Oxygen Concentration - - Weight 78.5 [...] this topic Medical Devices Implanted Type Area Precast Worker Device Identifier Shelf Expiration Date Model / Serial / Lot Grft Mesh V Patch C Qur Sm 4.3 X 4.3cm - [id number] Implanted:Qty : 1 on 04/14/2016 by Carlos Almeida MD at [facility] IMPLANT N/A: Umbilical [employer] / [employer] 08/30/2016 [id number] / / [id number] Insurance MEDICAID [employer] Care Teams Overnight Cashier Relationship Specialty Start Date End Date Gulshan Alvarado MD [address] [place] [address] [place] [address] PCP - General Associate Account Manager 04/14/16 Carlos Almeida MD General Surgery 03/11/16
--- OUTSIDE RECORDS SUMMARY | 2024-08-05 01:36 | XMS_ITS | Clinical Summary ---
Author Organization [facility] Address [address] [place] [address] Care Team Providers Care Packaging Mechanic Name Role Phone Gulshan Junior MD Primary Care Provider [phone] Allergies Active Allergy Reactions Criticality Noted Date [...] Comments Blood Pressure 123/75 07/22/2020 10:54 AM SURGICAL SUPERVISOR Pulse 89 07/22/2020 10:54 AM SURGICAL SUPERVISOR Temperature 36.4 C (97.6 F) 07/22/2020 10:54 AM SURGICAL SUPERVISOR Respiratory Rate 16 07/22/2020 10:54 AM SURGICAL SUPERVISOR Oxygen Saturation 99% 07/22/2020 10:54 AM SURGICAL SUPERVISOR Inhaled Oxygen Concentration - - Weight 79.4 kg (175 lb) 07/22/2020 10:54 AM SURGICAL SUPERVISOR Height 167.6 cm (5' 6 ) 07/22/2020 10:54 AM SURGICAL SUPERVISOR Body Mass Index 28.25 07/22/2020 10:54 AM SURGICAL SUPERVISOR Plan of Treatment Health Maintenance Due Date [...] patient's age to complete this topic Insurance [employer] Care Teams Packaging Mechanic Relationship Specialty Start Date End Date Gulshan Junior MD [address] [place] [address] [place] [address] PCP - General FAMILY PRACTICE 07/22/20
--- OUTSIDE RECORDS SUMMARY | 2024-08-05 01:36 | XMS_ITS | Patient Health Summary ---
Author Organization [facility] Address [address] [place] [address] Care Team Providers Care Coil Machine Supervisor Name Role Phone Unavailable Primary Care Provider Unavailabl e Note from [facility],non-owned Affiliates and Associated Physician Practices is amultiple site organization consisting of ambulatory clinics and hospital sitesin [place], [place], [place] and [place]. This disclosure is being madepursuant to the Care Everywhere program and may not contain all information available regarding this patient. Last updated 18.[facility] Allergies No known active allergies Medications * [...] GROSS + MICRO EXAM (06/24/2000 8:40 AM REGULATORY ADMINISTRATOR) Result CASE NUMBER [id number] Comment: ORDERING [...] areas of infarction or lesion noted grossly. Circulator sections are submitted as follows cross section of umbilical cord and membranes, cassette A business services representative section of surface in cassette B and business services representative section of maternal surface in cassette [...] C. Chorioamniotic membranes with no pathologic changes Elevator Constructor Supervisor [facility] Pathologist Lacey Aj M.D. [place]. 06/25/2000 1454 <1> CPT code 8307/78603 MISCELLANEOUS SAMPLES / Unknown 06/24/2000 8:40 AM REGULATORY ADMINISTRATOR 06/24/2000 8:40 AM REGULATORY ADMINISTRATOR Historical Provider LAB - PATHOLOGY/C YTOLOGY ORDERABLES
--- OUTSIDE RECORDS SUMMARY | 2024-08-05 01:36 | XMS_ITS | Referral Summary ---
Author Organization [facility] Address [address] [place] [address] Care Team Providers Care Orthodontic Assistant Name Role Phone Unavailable Primary Care Provider Unavailabl e Source Comments [facility],non-owned Affiliates and Associated Physician Practices is amultiple site organization consisting of ambulatory clinics and hospital sitesin [place], [place], [place] and [place]. This disclosure is being madepursuant to the Care Everywhere program and may not contain all information available regarding this patient. Last updated 18.[facility] [employer] Allergies No known active allergies Medications * [...]
--- OUTSIDE RECORDS SUMMARY | 2024-08-05 01:36 | XMS_ITS | Clinical Summary ---
Author Organization [facility] Address [address] [place] [address] Phone Care Team Providers Care Paediatric Physiotherapist Name Role Phone [facility], External Provider Primary Care Provider U navailable [...] 2) 2023 INFLUENZA VACCINE (#1) 2023 Insurance [facility] MEDICAID Care Teams Paediatric Physiotherapist Relationship Specialty Start Date End Date [facility], External Provider [address] [place] [address] PCP - General 01/26/18
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
[2024-08-05 02:28] VITALS: BP 143/87; PULSE 76; RESP 17; O2SAT 98
== END 2024-08-05 02:29 | disposition home or self-care (01) ==
PROVIDERS: Emergency Provider Physician Assistant
DX: S09.90XA Unspecified injury of head, initial encounter (principal); S16.1XXA Strain of muscle, fascia and tendon at neck level, initial encounter; I25.2 Old myocardial infarction; K58.9 Irritable bowel syndrome, unspecified; M50.31 Other cervical disc degeneration, high cervical region; Z79.899 Other long term (current) drug therapy; V49.40XA Driver injured in collision with unspecified motor vehicles in traffic accident, initial encounter
CPT/HCPCS: 70450; 72125; 99284

== ENCOUNTER 2024-10-04 08:45 | Outpatient (RCR) | payer OTHER, MEDICAID, SELFPAY ==
--- NOTE | 2024-08-23 14:23 | OPREHPOC ---
Outpatient Therapy Plan of Care This is a Multidisciplinary Plan of Care that may contain components documented by all disciplines (PT, OT, and ST.) PT Problem 1 PT Problem #1 Knowledge Deficit PT Goal 1 Goal / Goal Update 1. Pt to be IND with issued HEP Target Visit 8 PT Problem 2 PT Problem #2 Pain PT Goal 1 Goal / Goal Update 1. pt to report neck pain no greater than 3/10 in the last week 2. Pt to report no more than 1 headache in the last week 3. Pt to report no more than 25% disability on the NECK oswestry index. Target Visit 8 PT Problem 3 PT Problem #3 Impaired Range of Motion PT Goal 1 Goal / Goal Update 1. pt to improve cervical rotation to 60 deg ea direction 2. Pt to improve cervical flexion/extension to 40 deg ea direction Target Visit 8
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
--- NOTE | 2024-09-02 09:54 | PCPTNOTE ---
Patient had to cancel appointment due to a schedule conflict.
--- NOTE | 2024-09-09 09:45 | PCPTNOTE ---
Patient called to cancel therapy this date.
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
--- NOTE | 2024-10-04 09:47 | OPREHPOC ---
Outpatient Therapy Plan of Care This is a Multidisciplinary Plan of Care that may contain components documented by all disciplines (PT, OT, and ST.) PT Problem 1 PT Problem #1 Knowledge Deficit PT Goal 1 Goal / Goal Update 1. Pt to be IND with issued HEP Target Visit 8 Progress Met PT Problem 2 PT Problem #2 Pain PT Goal 1 Goal / Goal Update 1. pt to report neck pain no greater than 3/10 in the last week 2. Pt to report no more than 1 headache in the last week 3. Pt to report no more than 25% disability on the NECK oswestry index. Target Visit 8 Progress Met PT Problem 3 PT Problem #3 Impaired Range of Motion PT Goal 1 Goal / Goal Update 1. pt to improve cervical rotation to 60 deg ea direction 2. Pt to improve cervical flexion/extension to 40 deg ea direction Target Visit 8 Progress Partially Met
== END 2024-10-04 10:26 | disposition home or self-care (01) ==
LOC: ANHGOSHPT 08:45
PROVIDERS: PCP Nurse Practitioner; Visit Provider Nurse Practitioner
DX: M54.2 Cervicalgia (principal); V89.2XXA Person injured in unspecified motor-vehicle accident, traffic, initial encounter
CPT/HCPCS: 97014; 97110; 97140; 97161; G0283

== ENCOUNTER 2024-12-22 11:35 | Outpatient (CLI) | payer OTHER, MEDICAID, SELFPAY ==
--- NOTE | ~2024-12-22 | US_ITS ---
EXAMINATION: US breast RT limited INDICATION: 49-year old female; BI-RADS 3, short-term follow-up probably benign lesions in the upper right breast. COMPARISON: 06/02/2024 TECHNIQUE: Targeted sonographic evaluation of the upper right breast was completed. FINDINGS: A 0.9 x 0.2 x 0.6 cm Hypoechoic mass with echogenic center compatible with an intramammary lymph node at 10:00 location 10 cm from the nipple in the RIGHT breast reidentified is unchanged. This lesion w as only partially measured on the prior examination of 06/02/2024. A 0.3 x 0.3 x 0.3 cm Hypoechoic circumscribed mass at 11:00 location 4 cm from the nipple in the RIGH T breast redemonstrated is smaller in size compatible with a benign finding. Additional 0.3 x 0.2 x 0.2 cm Hypoechoic circumscribed mass at 11:00 location 4 cm from the nipple in the RIGHT breast redemonstrated is unchanged. Previously seen cyst at 12:00, 2 cm from the nipple in the right breast has resolved in the interval. IMPRESSION: Probably benign hypoechoic masses in the right breast are either stable or smaller in size. RECOMMENDATION: Continue short-term follow-up right breast masses with diagnostic bilateral mammography and ultrasoun d of the right breast in 6 months. BI-RADS 3, PROBABLY BENIGN Reviewed, dictated and finalized at location B. IMPRESSION: Probably benign hypoechoic masses in the right breast are either stable or smal ler in size. RECOMMENDATION: Continue short-term follow-up right breast masses with diagnostic bilateral isaac mography and ultrasound of the right breast in 6 months. BI-RADS 3, PROBABLY BENIGN
--- OUTSIDE RECORDS SUMMARY | 2024-12-22 11:39 | XMS_ITS | Clinical Summary ---
Author Organization [facility] Address [address] [place] [id number] Care Team Providers Care Web Content Executive Name Role Phone Gulshan Junior MD Primary Care Provider [phone] Allergies Active Allergy Reactions Criticality Noted Date [...] Comments Blood Pressure 123/75 07/22/2020 10:54 AM FISHERIES BIOLOGIST Pulse 89 07/22/2020 10:54 AM FISHERIES BIOLOGIST Temperature 36.4 C (97.6 F) 07/22/2020 10:54 AM FISHERIES BIOLOGIST Respiratory Rate 16 07/22/2020 10:54 AM FISHERIES BIOLOGIST Oxygen Saturation 99% 07/22/2020 10:54 AM FISHERIES BIOLOGIST Inhaled Oxygen Concentration - - Weight 79.4 kg (175 lb) 07/22/2020 10:54 AM FISHERIES BIOLOGIST Height 167.6 cm (5' 6) 07/22/2020 10:54 AM FISHERIES BIOLOGIST Body Mass Index 28.25 07/22/2020 10:54 AM FISHERIES BIOLOGIST Plan of Treatment Health Maintenance Due Date [...] Screening with HPV 2003 Mammogram Screening 2013 Pneumococcal Vaccine: 50+ Ye ars (1 of 1 - PCV) 2023 Zoster Vaccines (1 of 2) 2023 COVID-19 Vaccine (1 - 2023-2 5 season) 2024 Meningococcal B Vaccine Aged Out No l onger eligible based on patient's age to complete this topic Meningococcal Vaccine Aged Out No vicki wayne eligible based on patient's age to complete this topic RSV Immunizations Under 20 Months Aged Out No longer eligible based on patient's age to complete this topic Insurance [employer] Care Teams Web Content Executive Relationship Specialty Start Date End Date Gulshan Junior MD [address] [place] [address] PCP - General FAMILY PRACTICE 07/22/20
--- OUTSIDE RECORDS SUMMARY | 2024-12-22 11:39 | XMS_ITS | Clinical Summary ---
Author Organization [facility] Address [address] [place] [address] Care Team Providers Care Senior Account Manager Name Role Phone Unavailable Primary Care Provider Unavailabl e Source Comments [facility] [employer],non-owned Affiliates and Associated Physician Practices is amultiple site organization consisting of ambulatory clinics and hospital sitesin [place], [place], [place] and [place]. This disclosure is being madepursuant to the Care Everywhere program and may not contain all information available regarding this patient. Last updated 18.[facility] [employer] Allergies No known active allergies Medications * Be aware that medications may not be up to date on this document. Alwaysverify current medications with the patient. 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 Gender Identity Not on file Sexual Orientation [...] 3:49 PM CDT Height 167.6 cm (5' 6) 01/20/2017 3:49 PM CDT Body Mass Index [...] SCREENING 1973 LIPID TESTING 1973 MAMMOGRAM 1973 HIV SCREENING 02/02/1988 HEPATITIS C SCREENING 01/28/1991 DTAP/TDAP/TD VACCINES (1 - Tdap) 02/02/1992 HEPATITIS B VACCINE (1 of 3 - 19+ 3-dose series) 02/02/1992 PAP SMEAR 1994 SCREENING FOR DIABETES 01/20/2017 PNEUMOCOCCAL VACCINE 50+ (1 of 1 - PCV) 2023 ZOSTER VACCINE (1 of 2) 2023 COVID-19 VACCINE (1 - 2023-2 5 season) 2024 DEPRESSION SCREENING 06/01/2024 INFLUENZA VACCINE (#1) 2025 02/25/2016 HIB VACCINE Aged Out No longer eligi ble based on patient's age to complete this topic HPV VACCINE Aged Out No longer eligi ble based on patient's age to complete this topic MENINGOCOCCAL (Group B) VACC INE SHARED DECISION-MAKING Aged Out No longer eligibl e based on patient's age to complete this topic MENINGOCOCCAL GROUPS A/C/Y/W VACCINE Aged Out No longer eligible b ased on patient's age to complete this topic Insurance [facility] SELF PAY NO INSURANCE Member Subscriber Plan / Payer (Ef fective for All Dates) Name:Mira Friend Hraini Member ID:Not on file Relation to Subscriber:Not on file Name:MIRA FRIEND Harini Subscriber ID:Not on file (Home) Address: [facility] [place] [address] Payer ID:Not on file Group ID:Not on file Type:Self Pay Address: [place], [place]
--- OUTSIDE RECORDS SUMMARY | 2024-12-22 11:39 | XMS_ITS | Clinical Summary ---
Author Organization [facility] [address] Address [address] [place] [id number] Care Team Providers Care Jacquard Loom Fixer Name Role Phone Kwan Piedra DO Primary Care Provider [phone] Allergies Active Allergy Reactions Criticality Noted Date Comments Penicillins Other (See comments) Low 03/06/2016 Yeast infection Caused Yeast Infection Medications bimatoprost (LATISSE) 0.03 % ophthalmic solution Administer [...] (40 mg total) by mouth daily Active omeprazole (PriLOSEC) 40 mg capsule Take [...] 2 (two) times a day 3 Active triamcinolone (KENALOG) 0.1 % creamIndication s:skin rash Apply topically 2 (two) times a day for 7 days 30 g 3 Active atorvastatin (LIPITOR) 10 mg tablet Take 1 tablet (10 mg total) by mouth daily 30 tablet 11 5 10/11/19 26 Active Active Problems Problem Noted Date Diagnosed Date Gastroesophageal reflux disease without esophagi tis 08/01/2022 Palpitations 04/21/2022 Frequent PVCs 02/21/2022 Elevated blood pressure reading 02/21/2022 Other chest pain 01/03/2022 Abnormal ECG 01/03/2022 Mixed hyperlipidemia 01/03/2022 Resolved Problems Problem Noted Date Diagnosed Date Resolved Date Preoperative cardiovascular examination 08/01/2022 10/10/2024 Encounters Date Type Department Care Team Description 10/10/2024 8:30 AM CDT Office Visit [facility] Cardiology [address] [address] [address] [place] [address] Cristian Wolfe MD Frequent PVCs (Primary Dx); Palpitations; Mixed hyperlipidemia from Last 3 Months Surgical [...] on file 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 Gender Identity Not on file Sexual Orientation Not on file Obstetrics History Last Filed Vital Signs Vital Sign Reading Time Taken Comments Blood Pressure 126/68 10/10/2024 8:39 AM CDT Pulse 71 10/10/2024 8:39 AM CDT Temperature 37.1 C (98.7 F) 02/15/2024 7:24 PM CDT Respiratory Rate 20 02/15/2024 7:24 PM CDT Oxygen Saturation 98% 10/10/2024 8:39 AM CDT Inhaled Oxygen Concentration - - Weight 80 kg (176 lb 4.8 oz) 10/10/2024 8:39 AM CDT Height 167.6 cm (5' 6) 10/10/2024 8:39 AM CDT Body Mass Index 28.46 10/10/2024 8:39 AM CDT Plan of Treatment Health Maintenance Due Date Last Done Comments Breast Cancer Screening-Mammogram 1973 Cervical Cancer Screening 1973 Colon Cancer Screening-Colonoscopy 1973 Depression Screening 1973 Hepatitis C Screening 1973 Regular Well Visit/Exam 18-64 1991 DTaP/Tdap/Td Vaccine (7 - Td or Tdap) 04/24/2018 04/24/2008, 11/20/1988, 12/30/1978, Additional history exists Zoster Vaccine (1 of 2) 2023 Covid-19 Vaccine (3 - season) 2024 08/31/2020, 08/10/2020 Influenza Vaccine (Season Ended) 2025 02/10/2020, 02/05/2019, 02/25/2016, Additional history exists Hepatitis B Screening Completed 04/09/2016 Pneumococcal vaccine <65 Aged Out No longer eligible based on patient's age to complete this topic Insurance [facility] Care Teams Jacquard Loom Fixer Relationship Specialty Start Date End Date Kwan Piedra DO PCP - General Internal Medicine 07/04/24
--- OUTSIDE RECORDS SUMMARY | 2024-12-22 11:39 | XMS_ITS | Referral Summary ---
Author Organization [address] Address [facility] [place] [address] Care Team Providers Care Shoe Repairman Name Role Phone Kwan Piedra DO Primary Care Provider [phone] Encounters Date Type Department Care Team Description 10/10/2024 8:30 AM CDT Office Visit 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
--- OUTSIDE RECORDS SUMMARY | 2024-12-22 11:39 | XMS_ITS | Data Portability ---
Author Organization [facility] [employer], Main Office Address [address] [place] [address] Assessment No assessment recorded. Plan of Treatment Reminders Order Date Submit Date Provider Last Modified By Organization Details Last Modified Time Details Appointments None recorded. Lab pancreatic elastase, quant, stool 2023 024 TAB Not available 4 12:26:02 amylase + lipase, serum 2023 024 [facility] (Lab), [address] [place], [address], 4 16:05:03 CBC w/ auto diff 2022 023 [email or web address] Not available 3 08:41:53 rapid strep group A, throat 2022 023 [facility] [address] [place], [place], [address], 3 16:41:04 CMP, serum or plasma 2022 [...] abdomen + pelvis, w/wo contrast 2023 0[address] [facility] [address] [facility], [address] [place] [address], [place], [address], 4 08:09:53 Medication Orders amoxicillin 875 mg-potassiu m clavulanate 125 mg tablet 2022 023 [facility] [address] [place], [address], 3 15:05:45 fluconazole 150 mg tablet 2022 023 [facility] [address] [place], [address], 3 20:57:42 hyoscyamine 0.125 mg sublingual tablet 2022 023 [address] [place], [address], 3 14:25:47 pantoprazol e 40 mg tablet,gerson yed release 2022 023 [facility] [address] [place], [address], 3 13:30:51 Patient TargetsNo targets recorded. Patient Instructions Encounter Date Encounter Id Patient Instructions Last Modified By Organization Details Last Modified Time 12/10/2022 [id number] PT WITH GERD NO BEING CONTROLLED BY FAMOTIDINE ANYMORE . TRY PANTOPRAZOLE 40 MG NEEDED . PT WITH SPASTIC ABD PAIN TRY HYOSCYAMINE SHORT ACTING NEEDED . F/U IN 6 MTHS [email or web address] Not available 12/10/2022 13:29:06 07/15/2023 [id number] PT WITH EPIGASTRIC PAIN RADIATING TO THE BACK. DIARRHEA DIFFICULT TO FLUSH /NAUSEA . DDX : EPI / PANCREATITIS . CHECK FECAL ELASTASE /AMYLASE /LIPASE . F/U IN 3 WEEKS . [email or web address] Not available 07/15/2023 13:43:46 09/09/2023 [id number] LOW FAT DIET . [email or web address] Not availabl e 09/09/2023 16:51:24 PT WITH EPI . PT WITH ONGOING DIARRHEE . I WILL INCREASE CREON DOSE 24K/76K/120K TO 2 CAPSULE TID. F/U IN 4 WEEKS . [email or web address] Not available 09/09/2023 16:51:16 Reason for Referral None Reported. Results Created Date Observation Date Name Description Value Unit Range Abnormal Flag Note LastModifiedBy Organization Detail LastModifiedTime 01/28/2001/27/2023 CBC/C OMPLE TE BLD COUNT W/DIF F white blood cells 4.5 x10'3 /uL 4.2-10 .8 Not Available [facility] (Lab) [address] [place], [address], 01/27/2023 19:14:11 01/28/2001/27/2023 CBC/C OMPLE TE BLD COUNT W/DIF F red blood cells 5.16 x10'6 /uL 3.80-5 .20 Not Available [facility] (Lab) [address] [place], [address], 01/27/2023 19:14:11 01/28/2001/27/2023 CBC/C OMPLE TE BLD COUNT W/DIF F hemoglobin 15.8 g/dL 12.0-1 5.6 high Not Available [facility] (Lab) [address] [place], [address], 01/27/2023 19:14:11 01/28/2001/27/2023 CBC/C OMPLE TE BLD COUNT W/DIF F hematocrit 47.4 % 35.7-4 5.7 high Not Available [facility] (Lab) [address] [place], [address], 01/27/2023 19:14:11 01/28/2001/27/2023 CBC/C OMPLE TE BLD COUNT W/DIF F mean red cell volume 91.9 fL 82.0-9 9.0 Not Available [facility] (Lab) [address] [place], [address], 01/27/2023 19:14:11 01/28/2001/27/2023 CBC/C OMPLE TE BLD COUNT W/DIF F mean red cell hemoglobin 30.6 pg 27.0-3 3.0 Not Available [facility] (Lab) [address] [place], [address], 01/27/2023 19:14:11 01/28/2001/27/2023 CBC/C OMPLE TE BLD COUNT W/DIF F mean RBC HGB concentratio n 33.3 g/dL 31.0-3 6.0 Not Available [facility] (Lab) [address] [place], [address], 01/27/2023 19:14:11 01/28/2001/27/2023 CBC/C OMPLE TE BLD COUNT W/DIF F red cell distribution width 13.8 % 11.8-1 5.5 Not Available [facility] (Lab) [address] [place], [address], 01/27/2023 19:14:11 01/28/2001/27/2023 CBC/C OMPLE TE BLD COUNT W/DIF F platelets 177 x10'3 /uL 150-40 0 Not Available [facility] (Lab) [address] [place], [address], 01/27/2023 19:14:11 01/28/2001/27/2023 CBC/C OMPLE TE BLD COUNT W/DIF F mean platelet volume 11.3 fL 9.0-12 .4 Not Available [facility] (Lab) [address] [place], [address], 01/27/2023 19:14:11 01/28/20 23 01/27/2023 CBC/C OMPLE TE BLD COUNT W/DIF F neutrophils 53 % 39.0-7 2.0 Not Available [facility] (Lab) [address] [place], [address], 01/27/2023 19:14:11 01/28/2001/27/2023 CBC/C OMPLE TE BLD COUNT W/DIF F bands 13 % 0-3 high Not Available [facility] (Lab) [address] [place], [address], 01/27/2023 19:14:11 01/28/2001/27/2023 CBC/C OMPLE TE BLD COUNT W/DIF F lymphocytes 23 % 16.0-4 7.0 Not Available [facility] (Lab) [address] [place], [address], 01/27/2023 19:14:11 01/28/2001/27/2023 CBC/C OMPLE TE BLD COUNT W/DIF F monocytes 7 % 5.0-12 .0 Not Available [facility] (Lab) [address] [place], [address], 01/27/2023 19:14:11 01/28/2001/27/2023 CBC/C OMPLE TE BLD COUNT W/DIF F eosinophils 3 % 1.0-7. 0 Not Available [facility] (Lab) [address] [place], [address], 01/27/2023 19:14:11 01/28/2001/27/2023 CBC/C OMPLE TE BLD COUNT W/DIF F basophils 1 % 0.0-2. 0 Not Available [facility] (Lab) [address] [place], [address], 01/27/2023 19:14:11 01/28/2001/27/2023 CBC/C OMPLE TE BLD COUNT W/DIF F immature granulocytes 0.2 % 0.00-0 .50 Not Available [facility] (Lab) [address] [place], [address], 01/27/2023 19:14:11 01/28/2001/27/2023 CBC/C OMPLE TE BLD COUNT W/DIF F neutrophils, absolute count 2.61 x10'3 /uL 1.5-8. 0 Not Available [facility] (Lab) [address] [place], [address], 01/27/2023 19:14:11 01/28/2001/27/2023 CBC/C OMPLE TE BLD COUNT W/DIF F lymphocytes, absolute count 1.44 x10'3 /uL 1.07-3 .43 Not Available [facility] (Lab) [address] [place], [address], 01/27/2023 19:14:11 01/28/2001/27/2023 CBC/C OMPLE TE BLD COUNT W/DIF F monocytes, absolute count 0.31 x10'3 /uL 0.29-0 .99 Not Available [facility] (Lab) [address] [place], [address], 01/27/2023 19:14:11 01/28/2001/27/2023 CBC/C OMPLE TE BLD COUNT W/DIF F eosinophils, absolute count 0.11 x10'3 /uL 0.02-0 .53 Not Available [facility] (Lab) [address] [place], [address], 01/27/2023 19:14:11 01/28/2001/27/2023 CBC/C OMPLE TE BLD COUNT W/DIF F basophils, absolute count 0.03 x10'3 /uL 0.01-0 .08 Not Available [facility] (Lab) [address] [place], [address], 01/27/2023 19:14:11 01/28/20 23 01/27/2023 CBC/C OMPLE TE BLD COUNT W/DIF F immature granulocytes ,absolute 0.01 x10'3 /uL 0.00-0 .05 Not Available [facility] (Lab) [address] [place], [address], 01/27/2023 19:14:11 01/28/20 23 01/27/2023 CBC/C OMPLE TE BLD COUNT W/DIF F nucleated red blood cells 0.0 % -0 Not Available [facility] (Lab) [address] [place], [address], 01/27/2023 19:14:11 01/28/20 23 01/27/2023 CBC/C OMPLE TE BLD COUNT W/DIF F NRBC# 0.00 x10'3 /uL Not Available [facility] (Lab) [address] [place], [address], 01/27/2023 19:14:11 01/28/20 23 01/27/2023 CBC/C OMPLE TE BLD COUNT W/DIF F reactive lymphocytes OCCASI ONAL Not Available [facility] (Lab) [address] [place], [address], 01/27/2023 19:14:11 01/28/2001/27/2023 COMPR EHENS ALOK METAB OLIC PANEL sodium 134 mmol/ L 137-14 5 low Not Available [facility] (Lab) [address] [place], [address], 01/27/2023 18:50:09 01/28/2001/27/2023 COMPR EHENS ALOK METAB OLIC PANEL potassium 3.9 mmol/ L 3.5-5. 1 Not Available [facility] (Lab) [address] [place], [address], 01/27/2023 18:50:09 01/28/20 23 01/27/2023 COMPR EHENS ALOK METAB OLIC PANEL chloride 98 mmol/ L 98-107 Not Available [facility] (Lab) [address] [place], [address], 01/27/2023 18:50:09 01/28/20 23 01/27/2023 COMPR EHENS ALOK METAB OLIC PANEL carbon dioxide 27 mmol/ L 22-30 Not Available [facility] (Lab) [address] [place], [address], 01/27/2023 18:50:09 01/28/20 23 01/27/2023 COMPR EHENS ALOK METAB OLIC PANEL anion gap 12.9 mmol/ L 14-22 low Not Available [facility] (Lab) [address] [place], [address], 01/27/2023 18:50:09 01/28/20 23 01/27/2023 COMPR EHENS ALOK METAB OLIC PANEL glucose 101 mg/dL 70-99 high Not Available [facility] (Lab) [address] [place], [address], 01/27/2023 18:50:09 01/28/20 23 01/27/2023 COMPR EHENS ALOK METAB OLIC PANEL BUN 12 mg/dL 8-19 Not Available [facility] (Lab) [address] [place], [address], 01/27/2023 18:50:09 01/28/20 23 01/27/2023 COMPR EHENS ALOK METAB OLIC PANEL creatinine 0.88 mg/dL 0.66-1 .25 Not Available [facility] (Lab) [address] [place], [address], 01/27/2023 18:50:09 01/28/20 23 01/27/2023 COMPR EHENS ALOK METAB OLIC PANEL GFR >60 Refer ence Range : [place] ge GFR Healt hy Adult : >60 [...] calcu lator is avail able on the [facility] websi te: https ://landon w.kid gareth.o rg/pr ofess ional s/kdo qi/gf r_cal culat or Not Available [facility] (Lab) [address] [place], [address], 01/27/2023 18:50:09 01/28/20 23 01/27/2023 COMPR EHENS ALOK METAB OLIC PANEL alkaline phosphatase 57 U/L 38-126 Not Available [facility] (Lab) [address] [place], [address], 01/27/2023 18:50:09 01/28/20 23 01/27/2023 COMPR EHENS ALOK METAB OLIC PANEL alanine aminotransfe rase 38 U/L 0-35 high Not Available [facility] (Lab) [address] [place], [address], 01/27/2023 18:50:09 01/28/20 23 01/27/2023 COMPR EHENS ALOK METAB OLIC PANEL aspartate aminotransfe rase 52 U/L 15-37 high Not Available [facility] (Lab) [address] [place], [address], 01/27/2023 18:50:09 01/28/20 23 01/27/2023 COMPR EHENS ALOK METAB OLIC PANEL bilirubin, total 0.80 mg/dL 0.20-1 .30 Not Available [facility] (Lab) [address] [place], [address], 01/27/2023 18:50:09 01/28/20 23 01/27/2023 COMPR EHENS ALOK METAB OLIC PANEL calcium 9.1 mg/dL 8.4-10 .2 Not Available [facility] (Lab) [address] [place], [address], 01/27/2023 18:50:09 01/28/20 23 01/27/2023 COMPR EHENS ALOK METAB OLIC PANEL total protein 7.9 g/dL 6.3-8. 2 Not Available [facility] (Lab) [address] [place], [address], 01/27/2023 18:50:09 01/28/20 23 01/27/2023 COMPR EHENS ALOK METAB OLIC PANEL albumin 4.3 g/dL 3.4-5. 0 Not Available [facility] (Lab) [address] [place], [address], 01/27/2023 18:50:09 01/28/20 23 01/27/2023 COMPR EHENS ALOK METAB OLIC PANEL globulin 3.6 g/dL 2.6-4. 2 Not Available [facility] (Lab) [address] [place], [address], 01/27/2023 18:50:09 01/28/20 23 01/27/2023 COMPR EHENS ALOK METAB OLIC PANEL A/G ratio 1.2 ratio 1.0-2. 0 Not Available [facility] (Lab) [address] [place], [address], 01/27/2023 18:50:09 01/28/20 23 01/27/2023 VITAM IN D 25-HY DROXY [id number] 35.3 NG/mL 30-100 Vitam in D Statu s: Defic ient: <20 ng/mL Insuf ficie nt: 20-29 ng/mL Suffi cient : 30-10 0 ng/mL Not Available [facility] (Lab) [address] [place], [address], 01/27/2023 18:57:56 01/28/2001/27/2023 TSH W/REF SANJAY FT4 TSH with reflex free T4 2.350 uIU/m L 0.465- 4.680 Not Available [facility] (Lab) [address] [place], [address], 01/27/2023 19:16:41 01/28/20 23 01/27/2023 rapid strep group A, throa t STREP A negati ve Not Available [facility] [address], [place], [address], 01/27/2023 14:46:28 07/24/19 24 07/24/2023 CT, abdom en + pelvi s, w/ contr ast No observ ation record ed. [email or web address] [facility] [address] [place] [address] , [place], [address], 07/29/2023 16:41:07 Result Notes None recorded. Problems Name Problem SNOMED Code Status Onset Date Resolution Date Notes Provider Name and Address Organization Details Recorded Time Abdominal pain 68027592 Active Not Available [facility] 4 12:35:50 Rib pain 515718038 Active Not Available [facility] 4 12:35:50 Pain in right foot 4649925193005 07 Active Not Available [facility] 4 12:35:50 Viral disease 76156878 Active Not Available [facility] 4 12:35:50 Depressive disorder 16911696 Active Not Available [facility] 4 12:35:50 Acute pharyngiti s 684246993 Active Not Available [facility] 4 12:35:50 Sinusitis 42710479 Active Not Available [facility] 4 12:35:50 Umbilical hernia 670946368 Active Not Available [facility] 4 12:35:50 Nausea 661049688 Active Not Available [facility] 4 12:35:50 Streptococ fortino sore throat 44261961 Active Not Available [facility] 4 12:35:50 Reactive lymphadeno emigdio 130332833 Active Not Available [facility] 4 12:35:50 Anxiety 63927360 Active Not Available [facility] 4 12:35:50 Upper respirator y infection 94204509 Active Not Available [facility] 4 12:35:50 Hyperlipid emia 65841725 Active Not Available [facility] 4 12:35:50 Diarrhea 21671174 Active Not Available [facility] 4 12:35:50 Otitis media 65241900 Active Not Available [facility] 4 12:35:50 Hypercalce barbara 73128187 Active Not Available [facility] 4 12:35:50 Acid reflux 163368474 Active Not Available [facility] 4 12:35:50 Fatigue 69520423 Active Not Available [facility] 4 12:35:50 Tonsilliti s 82619625 Active Not Available [facility] 4 12:35:50 Irritable bowel syndrome with diarrhea 965293193 Active 2021 Not Available [facility] 4 12:35:50 Gastroesop hageal reflux disease without esophagiti s 351763872 Active 2021 Not Available [facility] 4 12:35:50 Open wound of lower leg 020738083 Active 2022 Not Available [facility] 4 12:35:50 Pain of left calf 1584242040239 109 Active 2022 Not Available [facility] 4 12:35:50 Hyperpigme ntation of skin 95880414 Active 2022 Not Available [facility] 4 12:35:50 Lymphedema of lower extremity 138689394 Active 2022 Not Available [facility] 4 12:35:50 Abdominal colic 2953222 Active 2022 Not Available [facility] 4 12:35:50 Mild dehydratio n 1271427636276 Active 2022 Not Available [facility] 4 12:35:50 Vitamin D deficiency 59938906 Active 2022 Not Available [facility] 4 12:35:50 Pain in throat 279181825 Active 2022 Not Available [facility] 4 12:35:50 Leukocytos is 360308967 Active 2022 Not Available [facility] 4 12:35:50 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 Procedures Surgical History Date Name Laterality Status Provider Name and Address Organization Details Recorded Time 08/28/19 Wound Care-Podiatry completed Renee Correa RN [facility] [employer] 08/27/2022 10:56:15 section completed Not Available [facility] 07/30/2022 07:26:34 abdominoplasty completed Not Available [facility] 07/30/2022 07:26:34 Hernia Repair completed Not Available [facility] 07/30/2022 07:26:34 colonoscopy completed Not Available [facility] 07/30/2022 07:26:34 EGD completed Not Available [facility] 07/30/2022 07:26:34 Imaging Results None recorded. Procedure Notes None recorded. Medical Equipment None Reported. Allergies Allergen ID Allergen Name Allergen Category Reaction Reaction Severity Criticality Documentation Date Start Date Code Code System Note Provider Name and Address Organization Details Recorded Time 75403 amoxicill in medicatio n Not available Not available Not available 07/30/2022 723 RxNorm Other react ions and sever ities : 'Adve rse react ion to subst ance' . Gulshan Alvarado MD [address] [facility], [facility] [address], [place], [address], [facility] [employer] 15:03:52 Medications Name Sig Start Date Stop [...] EVERY DAY IN THE MORNING 03/02 [facility] , [...] Updated DateTime 07/15/2023 167.64 cm 27 kg/m2 08829.93 g ANTIONETTE Tovar [facility] 07/15/2023 12:45:41 Date Recorded Body height Body mass index (BMI) Body weight Provider Name and Address Organization Details Last Updated DateTime 09/09/2023 167.64 cm 27 kg/m2 39997.93 g ANTIONETTE Tovar [facility] 09/09/2023 14:21:17 Date Recorded Body height Body mass index (BMI) Body weight Heart rate Oxygen saturation Oxygen saturation in Arterial blood by Pulse oximetry Systolic And Diastolic Provider Name and Address Organization Details Last Updated DateTime 3 167.64 cm 27.1 kg/m2 84046.5 2 g 76 /min 96 % 96 % 142/86 mm[Hg] ANTIONETTE Tovar [facility] [employer] [facility] 3 12:52:30 Date Recorded Body height Body mass index (BMI) Body weight Body temperature Heart rate Oxygen saturation Oxygen saturation in Arterial blood by Pulse oximetry Systolic And Diastolic Provider Name and Address Organization Details Last Updated DateTime 3 167.64 cm 26.3 kg/m2 21383.5 6 g 97.9 [degF] 100 /min 98 % 98 % 112/78 mm[Hg] Columba moore [facility] [employer] [facility] 3 14:25:57 Date Recorded Body height Body mass index (BMI) Body weight Body temperature Heart rate Oxygen saturation Oxygen saturation in Arterial blood by Pulse oximetry Systolic And Diastolic Provider Name and Address Organization Details Last Updated DateTime 3 167.64 cm 27 kg/m2 03872.9 3 g 97.7 [degF] 73 /min 98 % 98 % 110/72 mm[Hg] Columba moore [facility] [employer] [facility] 3 12:23:15 Social History Question Answer Notes LastModified by Organizat ion Details LastModified Time Tobacco Smoking Status Never Smoker Not Available [facility] 07/30/2022 07:26:27 Do You Have An Advance Directive? Yes MIGRATION. Information not available 07/30/2022 What Is Your Level Of Caffeine Consumption? Occasional Coffee Sometimes MIGRATION. 08930 Information not available 07/30/2022 How Much Tobacco Do You Chew? None MIGRATION. 11127 Information not available 07/30/2022 In The 14 Days Before Symptom Onset, Have You Had Close Contact With A Laboratory-confi rmed COVID-19 While That Case Was Ill? No MIGRATION. 99181 Information not available 07/30/2022 In The 14 Days Before Symptom Onset, Have You Had Close Contact With A Person Who Is Under Investigation For COVID-19 While That Person Was Ill? No MIGRATION. 74800 Information not available 07/30/2022 What Type Of Diet Are You Following? REGULAR MIGRATION.50936 [id number] Information not available 07/30/2022 Which Illicit Or Recreational Drugs Have You Used? None MIGRATION.17067 [id number] Information not available 07/30/2022 Are There Any Guns Present In Your Home? No MIGRATION.53980 [id number] Information not available 07/30/2022 What Was The Date Of Your Most Recent Tobacco Screening? 02/26/2022 MIGRATION.88657 63984 Information not available 07/30/2022 How Much Tobacco Do You Smoke? No MIGRATION.59990 44402 Information not available 07/30/2022 Do You Use Sunscreen Routinely? Yes MIGRATION.05411 16677 Information not available 07/30/2022 Sex: Unknown Functional Status Question Answer Note LastModified by Organizat ion Details LastModified Time What is your level of alcohol consumption? Occasional MIGRATION.[id number] [id number] Information not available 07/30/2022 Do you or have you ever used smokeless tobacco? Never used smokeless tobacco MIGRATION.[id number] 026 Information not available 07/30/2022 What is your occupation? teacher MIGRATION.[id number] 026 Information not available 07/30/2022 Do you or have you ever used e-cigarettes or vape? Never used electronic cigarettes MIGRATION.[id number] 026 Information not available 07/30/2022 What is your exercise level? None MIGRATION.[id number] 026 Information not available 07/30/2022 Mental Status None recorded. Family History Relationship Description Onset Age of this Age Resolved Age Notes LastModified by Organization Details LastModified Time Mother Hypertensive disorder [id number].079 [id number] Not available 07/30/2022 07:26:35 Mother Hypercholest erolemia MIGRATION.199 [id number] Not available 07/30/2022 07:26:35 Father Hypercholest erolemia MIGRATION.251 [id number] Not available 07/30/2022 07:26:36 Medical History Condition Response BOWEL PROBLEMS Y DEPRESSION (INCLUDING POST ) Y HEARTBURN / REFLUX Y HIGH CHOLESTEROL / HYPERLIPIDEMIA Y Gynecological HistoryNo gynecological history recorded. Obstetrics History GPAL:G 0 P 0 0 0 0 Immunizations Vaccine Type Date Status Note Provider Nam e and Address Organization Details Recorded Time Tdap 8 completed Not Available [facility] 07/17/2023 12:35:51 Influenza, split virus, trivalent, preservative 5 completed Not Available [facility] 07/17/2023 12:35:51 Past Encounters Encounter ID Performer Location Encounter Start Date Encounter Closed Date Diagnosis/Indication Diagnosis SNOMED-CT Code Diagnosis ICD10 Code Diagnosis Note [id number] Gulshan Alvarado MD [facility] Karen agudelo [facility], [place] [address] 07/31/2020 00:00:00 07/31/2020 13:44:36 [id number] Gulshan Alvarado MD [facility] Karen agudelo [facility] [address], [place] [address] 09/06/2020 00:00:00 09/06/2020 20:37:09 [id number] _ATHN_MIGR ATION_1 _ATHENA_M IGRATION_ DEFAULT_1 _1 , 09/26/2020 00:00:00 09/26/2020 11:30:46 [id number] _ATHN_MIGR ATION_1 _ATHENA_M IGRATION_ DEFAULT_1 _1 , 12/12/2020 00:00:00 12/12/2020 11:06:08 [id number] _ATHN_MIGR ATION_1 _ATHENA_M IGRATION_ DEFAULT_1 _1 , 03/20/2021 00:00:00 03/20/2021 10:45:01 [id number] Gulshan Alvarado MD [facility] Karen agudelo [facility] [address], [place] [address] 08/27/2021 00:00:00 08/27/2021 19:42:46 [id number] _ATHN_MIGR ATION_1 _ATHENA_M IGRATION_ DEFAULT_1 _1 , 08/28/2021 00:00:00 08/28/2021 17:08:38 [id number] Gulshan Alvarado MD [facility] Karen agudelo [facility] [address], [place] [address] 09/30/2021 00:00:00 09/30/2021 12:50:08 [id number] Gulshan Alvarado MD [facility] Karen agudelo [address] , [place] [address] 11/29/2021 00:00:00 11/30/2021 11:29:25 [id number] _ATHN_MIGR ATION_1 _ATHENA_M IGRATION_ DEFAULT_1 _1 , 02/26/2022 00:00:00 02/26/2022 12:03:30 [id number] Gulshan Alvarado MD [facility] Karen agudelo [address] [place] [address] y , [place] [address] 08/06/2022 13:59:20 08/06/2022 14:28:47 Open wound of lower leg [id number] S81.801A Pain of left calf 005811 1296 555464 M79.662 [id number] Mg Baker DPM [facility] [address] [place] [address] 08/27/2022 10:22:03 08/27/2022 11:32:55 Hyperpigmentation of skin 20913339 L81.9 hyperpigme nted scar secondary to wound, healedrevi ewed silicone sheeting we the patient as well as Mederma usageconti nue chronic compressio n for lymphedema follow-up as needed Lymphedema of lower extremity [id number] I89.0 continue chronic compressio n therapy [id number] Cleo Figueroa MD [facility] General Surgery [address] [facility], [facility] [address] [place] [address] 12/10/2022 12:50:22 12/10/2022 14:04:02 Gastroesophageal reflux disease without esophagitis [id number] K21.9 Abdominal pain 38711139 R10.9 Abdominal colic 8881982 R10.83 [id number] Gulshan Alvarado MD [facility] Karen agudelo [address] [place] [address] 01/27/2023 14:18:11 01/27/2023 15:07:15 Mild dehydration [id number] 108 E86.0 F/u in 1 week. Thyroid di sorder screening 176248947 Z13.29 Vitamin D deficiency 347 19266 E55.9 Pain in throat 227126183 R07.0 [id number] Gulshan Alvarado MD [facility] Family Practice [facility] [address] , [place] [address] 02/03/2023 12:10:10 02/03/2023 12:44:26 Leukocytosis 739182435 D72.829 Finish out antibiotic . SxRx [id number] Cleo Figueroa MD [facility] General Surgery [address], [address] [address] 07/15/2023 12:45:16 07/15/2023 13:23:01 Gastroesophageal reflux disease without esophagitis 933547784 K21.9 Abdominal pain 26393160 R10.9 Abdominal colic 1484468 R10.83 Diarrhea 99544217 R19.7 [id number] Cleo Figueroa MD [facility] General Surgery [address], [address] [address] 09/09/2023 14:17:14 09/09/2023 14:50:41 Gastroesophageal reflux disease without esophagitis 385637030 K21.9 Abdominal colic 6432871 R10.83 Exocrine p ancreatic insufficiency 26060550 K86.81 Health Concerns Section Related Observation LastModified by Organization Detai ls LastModified Time None Recorded Concern Status LastModified by Organization Details LastModified Time None Recorded Advance Directives Directive Y: Payers Insurance Date Sequence Insurance Name Policy Number Policy Mondragon Covered Member ID Mondragon Member ID Guarantor Name 02/06/2024 1 [facility] - DOS ON OR AFTER 20 (MEDICAID REPLACEMENT - HMO) Mira Solis [id number] Mira Solis Notes Date Note Type Note [...] CHANGED HER DIET . Cleo Figueroa MD [address], [place], [address], [facility] [employer] [facility] 12/10/2022 13:31:06 01/27/2023 text/html Here today not feeling well. Has fever tmax 102 and now low grade. Went to and took 2 COVID tests and all was negative. Went to ER on Thursday. Did take a blood count. Can not doing anything without feeling like going to pass out. Has skin discoloration. Has diarrhea and not eating. Can hardly do anything gets dizziness. Gulshan Alvarado MD [address], [place], [address], [facility] [employer] [facility] 01/27/2023 20:58:50 02/03/2023 text/html Here today for f/u is still taking antibiotics. Feeling much better! Gulshan Alvarado MD [address], [place], [address], [employer] [facility] [employer] [facility] 02/04/2023 06:29:54 07/15/2023 text/html MIRA WAS SEEN [...] LOSS . Cleo Figueroa MD [address], [facility] [address], [place], [address], [facility] [employer] [facility] 07/15/2023 13:44:08 09/09/2023 text/html MIRA WAS SEEN IN THE OFFICE TODAY FOR A F/U. PT WAS LAST SEEN IN THE OFFICE C/O EPIGASTRIC PAIN RADIATING TO HER BACK. CT ABD WAS NORMAL .FECAL ELASTASE WAS 124 INDICATING MODERATE EPI . CREON WAS RXED . TODAY SHE REPORTS THAT SHE HAS DIARRHEA . WHEN SHE EATS PIZZA AND EATS FRIED FOODS SX INCREASES . Cleo Figueroa MD [address] [facility] [address] [address], [place], [address], [place] [facility] 09/09/2023 16:51:57 OBGyn Episode No OBEpisode recorded.
--- OUTSIDE RECORDS SUMMARY | 2024-12-22 11:39 | XMS_ITS | Clinical Summary ---
Author Organization [facility] Address [address], [address] [address] Phone Care Team Providers Care Engineering Supplies Sales Name Role Phone Carlos Almeida MD Unavailable [phone] Gulshan Alvarado MD Primary Care Provider [phone] Allergies Active Allergy Reactions Criticality Noted Date [...] AM CDT Pulse 87 07/30/2018 12:15 PM CORRECTIVE THERAPY AIDE TEACHER Temperature 37.1 C (98.8 F) 08/31/2018 9:40 AM CDT Respiratory Rate 16 08/31/2018 9:40 AM CDT Oxygen Saturation 98% 07/30/2018 12:15 PM CORRECTIVE THERAPY AIDE TEACHER Inhaled Oxygen Concentration - - Weight 78.5 kg (173 lb) 08/31/2018 9:40 AM CDT Height 167.6 cm (5' 6) 08/31/2018 9:40 AM CDT Body Mass Index 27.92 08/31/2018 9:40 AM CDT Plan of Treatment Health Maintenance Due Date Last Done Comments Hepatitis C Virus (HCV) Screening 1973 Pap Smear 1994 Cervical Cancer Screening (CCS) 2003 HPV/Cotest 2003 Hepatitis B Immunization (2 of 3 - 19+ 3-dose series) 05/07/2016 04/09/2016 Cologuard 2018 Colonoscopy 2018 Colorectal Cancer Screening 2018 Immunochemical Fecal Occult Blood 2018 Pneumococcal Immunization (50+ years) (1 of 1 - PCV) 2023 Zoster Immunization (1 of 2) 2023 SARS-COV-2 Immunization (3 - 2023- season) 2024 08/31/2020, 08/10/2020 Influenza Immunization (#1) 2025 02/25/2016, 1 Respiratory Syncytial Virus (RSV) Immunization (Adult) (1 - 1-dose 75+ series) 02/02/2048 DTaP/Tdap/Td Immunization Discontinued 2007, 11/20/1988, 12/30/1978, Additional history exists TdaP Immunization Completed 04/24/2008 Human Papillomavirus (HPV) Immunization Aged Out No longer eligible based on patient's age to complete this topic Meningococcal Immunization (ACWY) Aged Out No longer eligible based on patient's age to complete this topic Rotavirus Immunization Aged Out No lo nger eligible based on patient's age to complete this topic Medical Devices Implanted Type Area Gas Turbine Powerplant Mechanic Helper Device Identifier Shelf Expiration Date Model / Serial / Lot Grft Mesh V Patch C Qur Sm 4.3 X 4.3cm - [id number] Implanted:Qty : 1 on 04/14/2016 by Carlos Almeida MD at [facility] IMPLANT N/A: Umbilical [employer] / [employer] 08/30/2016 [id number] / / [id number] Insurance MEDICAID [employer] Care Teams Engineering Supplies Sales Relationship Specialty Start Date End Date Gulshan Alvarado MD [facility] [place] [address] PCP - General Aircraft Mechanic Armament 04/14/16 Carlos Almeida MD General Surgery 03/11/16
--- OUTSIDE RECORDS SUMMARY | 2024-12-22 11:39 | XMS_ITS | Clinical Summary ---
Author Organization [facility] Address [address] [place] [address] Phone Care Team Providers Care Stock Unloader Name Role Phone [facility], External Provider Primary Care Provider U [...] 10:38 AM CDT Height 167.6 cm (5' 6) 01/26/2018 10:38 AM CDT Body Mass Index 28.25 01/26/2018 10:38 AM CDT Plan of Treatment Health Maintenance Due Date Last Done Comments DTAP/TDAP/TD VACCINES (1 - Tdap) 02/02/1992 HEPATITIS B VACCINES (1 of 3 - 19+ 3-dose series) 07/1991 HPV/Cotest (21-29) 1994 CERVICAL CANCER SCREENING 2003 HPV/Cotest (30-65) 2003 PAP SMEAR 2003 BREAST CANCER SCREENING 2013 COLORECTAL SCREENING 2018 Colorectal Cancer Screening 2018 FIT-DNA Q 3 years 2018 FIT/FOBT Q 1 year 2018 Flex Sig/CT Colonography Q 5 years 2018 ZOSTER VACCINE (1 of 2) 2023 INFLUENZA VACCINE (#1) 2024 Insurance [facility] MEDICAID Care Teams Stock Unloader Relationship Specialty Start Date End Date [facility], External Provider [address] [place] [address] PCP - General 01/26/18
--- OUTSIDE RECORDS SUMMARY | 2024-12-22 11:39 | XMS_ITS | Patient Health Record ---
Author Organization [facility] - So [facility] Address [address] [place] [address] Care Team Providers Care Pinion Polisher Name Role Phone Marcial Torres [phone] Allergies No Known Allergies Reason For Referral No Information Plan Of Treatment No Information Insurance Providers Payer Name Payer Address Payer Phone Subscriber Number Group Number Insured Name Patient Relationship to Insured Coverage Start Date Coverage End Date Self Pay - Time of Service [place] [address] Mira Solis Self - patient is the insured Medical (General) History Surgical History Surgery Date(Month/Year)
== END 2024-12-22 11:36 | disposition home or self-care (01) ==
LOC: ANHIMG 11:37
PROVIDERS: PCP Nurse Practitioner; Visit Provider Obstetrics & Gynecology Gynecology
DX: N60.01 Solitary cyst of right breast (principal)
CPT/HCPCS: 76642

== ENCOUNTER 2025-05-29 01:41 | Day surgery (SDC) | payer OTHER, SELFPAY ==
--- NOTE | 2025-05-22 12:06 | PC.NURSE ---
[facility] has started construction of its new state of the art ER which will open Spring 2026. With this, we anticipate parking may be a challenge for some our surgical patients and families. Parking spaces are limited but are available for all Surgical, obstetrics, and ER patients sharing this lot. If you arrive and find you are having a hard time finding a parking space, please note that we understand the challenges, please drive around the hospital and park near Hospital Entrance 1. When you enter this entrance, you can ask a volunteer to direct or take you back to the surgical waiting area to check in. We appreciate everyone?s understanding of these expected challenges while we build for your future. Report to the Outpatient Waiting Room, entrance under the green pavilion located off [address], at time __6:15 AM on date _05/29/25 . Planned Procedure Time: 8:15 AM .? Time changes happen often and if your time is changed the preop area will call you the afternoon before. - You and your visitor will be asked to self-screen and do not enter if you have any COVID symptoms. Please call surgeon if you need to reschedule. - A mask is optional within the hospital at this time. Patients may have clear liquids (water, carbonated beverages, clear teas, apple juice) until 3 hours prior to surgery ( 5:15 AM) with a maximum of 20 ounces. - No food from midnight until time of surgery and no smoking, or chewing tobacco (or any form of nicotine). No chewing gum, candy or mints. Take only the following medications with a SIP of water on the morning of surgery: ____NONE DO NOT STOP ANY OF YOUR OTHER PRESCRIPTION MEDICATIONS PRIOR TO SURGERY EXCEPT THE FOLLOWING Hold all vitamins and supplements for 3 days per anesthesiologist.05/25/25 Medications to discontinue per physician NONE Please no make-up, nail turkmen, hairspray, perfume, deodorant, or body powder the day of surgery.? No jewelry (including any body piercings) or valuables the day of surgery, leave them at home.? Please take a shower or bath the night before, or the morning of, surgery with an antibacterial soap.? Wear comfortable, loose fitting clothing.? Children are encouraged to wear pajamas. - Jewelry must be removed prior to entering the operating room.? Rings and piercings that are not removed may be cut off. - The hospital will not accept responsibility for valuables.? - Please leave all valuables, including medications, at home the day of surgery. If you are going home after surgery, a licensed auto parts delivery driver must drive you home.? - NO public transportation without another adult if you receive anesthesia. - We recommend that an adult stay with you for 24 hours following discharge. - We also recommend that you do not drive, make important decision, drink alcoholic beverages, or take any drugs that were not prescribed by your health care provider for at least 24 hours after your discharge time. For Pediatric surgeries, we recommend two adults accompany the child home. Follow any additional instructions given to you from your surgeon. Telephone instructions given to __PATIENT and asked if any additional questions and then verbalized understanding. Patient advised to call surgeon office or pre surgery nurse liaison [phone] if any additional questions.
[2025-05-22 12:10] VITALS: BMI 27.4
--- OUTSIDE RECORDS SUMMARY | 2025-05-29 01:45 | XMS_ITS | Patient Health Record ---
Author Organization [facility] Urgent Care - So [facility] Address [address] [place] [address] Care Team Providers Care Counselor/Art Therapist Name Role Phone Marcial Torres [phone] Allergies No Known Allergies Reason For Referral No Information Plan Of Treatment No Information Insurance Providers Payer Name Payer Address Payer Phone Subscriber Number Group Number Insured Name Patient Relationship to Insured Coverage Start Date Coverage End Date Self Pay - Time of Service Payment [place] [address] Mira Solis Self - patient is the insured Medical (General) History Surgical History Surgery Date(Month/Year)
--- OUTSIDE RECORDS SUMMARY | 2025-05-29 01:45 | XMS_ITS | Clinical Summary ---
Author Organization [facility] Address [address] [place] [address] Care Team Providers Care Network Coordinator Name Role Phone Unavailable Primary Care Provider Unavailabl e Social History Tobacco Use Types Packs/Day Years Used Date Smoking Tobacco: Never Assessed Comments Unknown Sex and Gender Information Value Date Recorded Sex Assigned at Not on file Legal Sex Female 5:04 PM EST Gender Identity Not on file Sexual Orientation Not on file Plan of Treatment Not on file Medical Devices Not on file
--- OUTSIDE RECORDS SUMMARY | 2025-05-29 01:45 | XMS_ITS | Clinical Summary ---
Author Organization [facility] [address] Address [address] [place] [address] Care Team Providers Care Juice Mixer Name Role Phone Kwan Piedra DO Primary Care Provider [phone] Allergies Active Allergy Reactions Criticality Noted Date [...] by mouth every 6 (six) hours Active triamcinolone (KENALOG) 0.1 % creamIndication s:skin rash Apply topically 2 (two) times a day for 7 days 30 g 3 Active azithromycin (ZITHROMAX) 250 mg tablet Take 2 tabs (500 mg) by mouth today, than 1 tab (250 mg) daily for 4 days. 6 tablet 5 Active Additional Information Patient not taking.Reported on 04/17/2025 atorvastatin (LIPITOR) 10 mg tablet Take 1 tablet (10 mg total) by mouth daily 90 tablet 3 5 04/17/20 26 Active Active Problems Problem Noted Date Diagnosed Date Gastroesophageal reflux disease without esophagi tis 08/01/2022 Palpitations 04/21/2022 Frequent PVCs 02/21/2022 Other chest pain 01/03/2022 Abnormal ECG 01/03/2022 Mixed hyperlipidemia 01/03/2022 Resolved Problems Problem Noted Date Diagnosed Date Resolved Date Preoperative cardiovascular examination 08/01/2022 10/10/2024 Elevated blood pressure reading 02/21/2022 04/17/2025 Encounters Date Type Department Care Team Description 05/16/2025 1:30 PM SAFETY CLOTHING AND EQUIPMENT DEVELOPER - 05/16/2025 11:59 PM SAFETY CLOTHING AND EQUIPMENT DEVELOPER Hospital Encounter [facility] [id number] [place] [address] Other specified abnormal uterine and vaginal bleeding Discharge Disposition: Discharge to home or self care 04/17/2025 8:15 AM SAFETY CLOTHING AND EQUIPMENT DEVELOPER Office Visit [facility] [address] [place] [address] Cristian Wolfe MD Other chest pain (Primary Dx); Palpitations; Mixed hyperlipidemia; Frequent PVCs; Elevated blood pressure reading 04/10/2025 Telephone [facility] at [address] [address] Florecita Cintron LPN 04/10/2025 Results Follow-Up [facility] [address] [address] Crys Luciano PA Throat culture Throat 04/08/2025 10:53 PM SAFETY CLOTHING AND EQUIPMENT DEVELOPER - 04/08/2025 11:59 PM SAFETY CLOTHING AND EQUIPMENT DEVELOPER Hospital Encounter [address] [address] Nasopharyngitis Discharge Disposition: Discharge to home or self care 04/08/2025 2:45 PM SAFETY CLOTHING AND EQUIPMENT DEVELOPER Office Visit [facility] at [address] [address] Crys Luciano PA Nasopharyngitis (Primary Dx) from Last 3 Months Surgical History Surgery [...] on file Legal Sex Female 6:28 PM SAFETY CLOTHING AND EQUIPMENT DEVELOPER Gender Identity Not on file Sexual Orientation Not on file Last Filed Vital Signs Vital Sign Reading Time Taken Comments Blood Pressure 112/68 04/17/2025 8:12 AM SAFETY CLOTHING AND EQUIPMENT DEVELOPER Pulse 70 04/17/2025 8:12 AM SAFETY CLOTHING AND EQUIPMENT DEVELOPER Temperature 36.4 C (97.6 F) 04/08/2025 2:56 PM SAFETY CLOTHING AND EQUIPMENT DEVELOPER Respiratory Rate 20 04/08/2025 2:56 PM SAFETY CLOTHING AND EQUIPMENT DEVELOPER Oxygen Saturation 99% 04/17/2025 8:12 AM SAFETY CLOTHING AND EQUIPMENT DEVELOPER Inhaled Oxygen Concentration - - Weight 78.7 kg (173 lb 8 oz) 04/17/2025 8:12 AM SAFETY CLOTHING AND EQUIPMENT DEVELOPER Height 167.6 cm (5' 6) 04/17/2025 8:12 AM SAFETY CLOTHING AND EQUIPMENT DEVELOPER Body Mass Index 28 04/17/2025 8:12 AM SAFETY CLOTHING AND EQUIPMENT DEVELOPER Plan of Treatment Upcoming Encounters Date Type Department Care Team (Latest Contact Info) Description 06/19/2025 7:30 AM SAFETY CLOTHING AND EQUIPMENT DEVELOPER Hospital Encounter [facility] [place] [address] [place], [place] [id number] Carlos Almeida MD [facility] [id number] 06/19/2025 7:30 AM SAFETY CLOTHING AND EQUIPMENT DEVELOPER - 06/19/2025 10:50 AM SAFETY CLOTHING AND EQUIPMENT DEVELOPER Surgery [facility] [place] [address] [place] [address] Carlos Almeida MD [address] [phone] OPEN REPAIR VENTRAL HERNIA Scheduled Procedures Name Priority Associated Diagnoses Date/Ti me REPAIR VENTRAL HERNIA WITH MESH VENTRAL HERNIA 06/19/2025 7:30 AM SAFETY CLOTHING AND EQUIPMENT DEVELOPER Health Maintenance Due Date Last Done Comments Breast Cancer Screening-Mammogram 1973 Cervical Cancer Screening 1973 Colon Cancer Screening-Colonoscopy 1973 Depression Screening 1973 Hepatitis C Screening 1973 Regular Well Visit/Exam 18-64 1991 DTaP/Tdap/Td Vaccine (7 - Td or Tdap) 04/24/2018 04/24/2008, 11/20/1988, 12/30/1978, Additional history exists Zoster Vaccine (1 of 2) 2023 Covid-19 Vaccine (3 - season) 2025 08/31/2020, 08/10/2020 Influenza Vaccine (#1) 2025 , 02/05/2019, 02/25/2016, Additional history exists Hepatitis B Screening Completed 04/09/2016 Pneumococcal vaccine <65 Aged Out No longer eligible based on patient's age to complete this topic Procedures Procedure Name Priority Date/Time Associated Diagnosis Comments US PELVIS W ENDOVAGINAL Schedule Routine, Read Routine (OP Routine) 05/16/2025 2:11 PM SAFETY CLOTHING AND EQUIPMENT DEVELOPER Other specified abnormal uterine and vaginal bleeding ELECTROCARDIOGRAM REPORT Routine 025 1:55 PM SAFETY CLOTHING AND EQUIPMENT DEVELOPER Other chest pain Palpitations THROAT CULTURE Routine 04/08/2025 3:33 PM SAFETY CLOTHING AND EQUIPMENT DEVELOPER Nasopharyngitis POC INFLUENZA A/B, COVID-19 ANTIGEN Routine 04/08/2025 3:20 PM SAFETY CLOTHING AND EQUIPMENT DEVELOPER Nasopharyngitis POCT RAPID STREP Routine 04/08/2025 3:12 PM SAFETY CLOTHING AND EQUIPMENT DEVELOPER Nasopharyngitis from Last 3 Months Results * US Pelvis W Endovaginal (05/16/2025 2:11 PM SAFETY CLOTHING AND EQUIPMENT DEVELOPER) Anatomical Region Laterality Modality Pelvis N/A Ultrasound 05/17/2025 7:20 AM SAFETY CLOTHING AND EQUIPMENT DEVELOPER Impressions 05/17/2025 7:20 AM SAFETY CLOTHING AND EQUIPMENT DEVELOPER 1. Heterogeneous thickened endometrium, could consider hysteroscopy for further assessment. 2. More discrete echogenic structure fundal endometrium possibly an endometrial polyp 1.6 x 1.4 x 1.3 cm. 3. Simple left ovarian cystic structure 3.6 cm may be a functional cyst. Initially a 3 month ultrasound follow-up would be recommended. Electronically signed by: Izaiah Hernandes M.D. Narrative 05/17/2025 7:20 AM SAFETY CLOTHING AND EQUIPMENT DEVELOPER EXAM DESCRIPTION: US PELVIS W ENDOVAGINAL REASON FOR STUDY: n93.8, abnormal uterine bleeding since early April. TECHNIQUE: Ultrasound of the pelvic contents was performed with transabdominal and transvaginal transducer.? Grayscale and color doppler techniques were utilized. COMPARISON: None. FINDINGS: UTERUS: The uterus is anteverted. The uterus is heterogeneous in echotexture and measures 13.2 x 8.2 x 5.9 cm. Nabothian cysts are noted. ENDOMETRIUM: The endometrium is thickened and echogenic with cystic areas, this measures 2.7 cm. There is a small amount of fluid at the superior fundal endometrium. At this location there is a more discrete echogenic structure along the endometrium 1.6 x 1.4 x 1.3 cm cm, nonspecific but possibly a polyp. RIGHT OVARY: The right ovary measures 2.9 x 1.4 x 2.1 cm. There is documentation of color Doppler flow in the right ovary with arterial and venous waveforms. LEFT OVARY: The left ovary measures 2.4 x 3.3 x 3.9 cm. There is documentation of color Doppler flow in the left ovary with arterial and venous waveforms. Cystic structure left ovary 1.9 x 3.3 x 3.6 cm. PELVIC FLUID: There is no evidence of free fluid in the pelvis. OTHER: No other significant findings. Procedure Note Izaiah Hernandes MD - 05/17/2025 EXAM DESCRIPTION: US PELVIS W ENDOVAGINAL REASON FOR STUDY: n93.8, abnormal uterine bleeding since early April. TECHNIQUE: Ultrasound of the pelvic contents was performed with transabdominal and transvaginal transducer.? Grayscale and color doppler techniques were utilized. COMPARISON: None. FINDINGS: UTERUS: The uterus is anteverted. The uterus is heterogeneous in echotexture and measures 13.2 x 8.2 x 5.9 cm. Nabothian cysts are noted. ENDOMETRIUM: The endometrium is thickened and echogenic with cystic areas, this measures 2.7 cm. There is a small amount of fluid at the superior fundal endometrium. At this location there is a more discrete echogenic structure along the endometrium 1.6 x 1.4 x 1.3 cm cm, nonspecific but possibly a polyp. RIGHT OVARY: The right ovary measures 2.9 x 1.4 x 2.1 cm. There is documentation of color Doppler flow in the right ovary with arterial and venous waveforms. LEFT OVARY: The left ovary measures 2.4 x 3.3 x 3.9 cm. There is documentation of color Doppler flow in the left ovary with arterial and venous waveforms. Cystic structure left ovary 1.9 x 3.3 x 3.6 cm. PELVIC FLUID: There is no evidence of free fluid in the pelvis. OTHER: No other significant findings. IMPRESSION: 1. Heterogeneous thickened endometrium, could consider hysteroscopy for further assessment. 2. More discrete echogenic structure fundal endometrium possibly an endometrial polyp 1.6 x 1.4 x 1.3 cm. 3. Simple left ovarian cystic structure 3.6 cm may be a functional cyst. Initially a 3 month ultrasound follow-up would be recommended. Electronically signed by: Izaiah Hernandes M.D. Melvi House MD IM US PROCEDURES Final Result * Electrocardiogram Report (04/17/2025 1:55 PM SAFETY CLOTHING AND EQUIPMENT DEVELOPER) Cristian Wolfe MD ECG ORDERABLES Nellie l Result * (ABNORMAL) Throat culture Throat (04/08/2025 3:33 PM SAFETY CLOTHING AND EQUIPMENT DEVELOPER) Report Final Report: Streptococcus pyogenes (Group A Streptococci) Streptococcus pyogenes is uniformly susceptible to beta-lactam antibiotics and vancomycin. Routine susceptibility testing is not performed. (.) Comment:Testing performed by : [facility], [address], [place]., [address] Organism STREPTOCOCCUS PYOGENES (GROUP A STREPTOCOCCI) PITA PARRISH Throat 04/08/2025 3:33 PM SAFETY CLOTHING AND EQUIPMENT DEVELOPER 04/09/2025 2:17 AM SAFETY CLOTHING AND EQUIPMENT DEVELOPER Narrative PITA PARRISH - 04/10/2025 12:47 PM SAFETY CLOTHING AND EQUIPMENT DEVELOPER Testing performed by [facility] Microbiology Laboratory ([phone]). [facility] MICROBIOLOGY - GENER AL ORDERABLES Final Result [address] [place] [address] * POC Influenza A/B, COVID-19 antigen (04/08/2025 3:20 PM SAFETY CLOTHING AND EQUIPMENT DEVELOPER) Influenza A Ag, POC Negative Negative [facility] Influenza B Ag, POC Negative Negative [facility] COVID-19 Ag POC Presumptive Negative Presumptive Negative, Invalid [facility] Nasal 04/08/2025 3:20 PM SAFETY CLOTHING AND EQUIPMENT DEVELOPER Crys RASMUSSEN POINT OF CARE TEST ORDER SYLVIA Final Result Performing Organization Address City/[facility]/ZIP Co de Phone Number [facility] * POCT rapid strep A (04/08/2025 3:12 PM SAFETY CLOTHING AND EQUIPMENT DEVELOPER) Rapid Strep A, POC Negative Negative Swab 04/08/2025 3:12 PM SAFETY CLOTHING AND EQUIPMENT DEVELOPER Crys RASMUSSEN POINT OF CARE TEST ORDER SYLVIA Final Result from Last 3 Months Insurance [facility] [employer] [place] Care Teams Juice Mixer Relationship Specialty Start Date End Date Kwan Piedra DO PCP - General Internal Medicine 07/04/24
--- OUTSIDE RECORDS SUMMARY | 2025-05-29 01:45 | XMS_ITS | Clinical Summary ---
Author Organization [facility] Address [address] [place] [address] Care Team Providers Care Kinesiotherapist Name Role Phone Unavailable Primary Care Provider Unavailabl e Source Comments [facility] [employer],non-owned Affiliates and Associated Physician Practices is amultiple site organization consisting of ambulatory clinics and hospital sitesin [place], [place] and [place]. This disclosure is being madepursuant to the Care Everywhere program and may not contain all information available regarding this patient. Last updated 18.[facility] [employer] Allergies No known active allergies Medications * [...] on file Legal Sex Female 5:32 AM LIFE EDUCATOR Gender Identity Not on file Sexual Orientation [...] 2023 ZOSTER VACCINE (1 of 2) 2023 DEPRESSION SCREENING 06/01/2024 COVID-19 VACCINE (1 - 2024-2 6 season) 2025 INFLUENZA VACCINE (#1) 2025 02/25/2016 HIB VACCINE [...] patient's age to complete this topic Insurance [facility] SELF PAY NO INSURANCE Member Subscriber Plan / Payer (Ef fective for All Dates) Name:Mira Friend Harini Member ID:Not on file Relation to Subscriber:Not on file Name:MIRA FRIEND Harini Subscriber ID:Not on file (Home) Address: [place] [address] Payer ID:Not on file Group ID:Not on file Type:Self Pay Address: [place], [place]
--- OUTSIDE RECORDS SUMMARY | 2025-05-29 01:45 | XMS_ITS | Clinical Summary ---
Author Organization [facility] Address [address], [address] [address] Phone Care Team Providers Care Machine Deburrer Name Role Phone Carlos Almeida MD Unavailable [phone] Gulshan Alvarado MD Primary Care Provider [phone] Allergies Active Allergy Reactions Criticality Noted Date [...] AM CDT Pulse 87 07/30/2018 12:15 PM TRANSCRIPT CLERK Temperature 37.1 C (98.8 F) 08/31/2018 9:40 AM CDT Respiratory Rate 16 08/31/2018 9:40 AM CDT Oxygen Saturation 98% 07/30/2018 12:15 PM TRANSCRIPT CLERK Inhaled Oxygen Concentration - - Weight 78.5 [...] (1 of 2) 2023 Influenza Immunization (#1) 2025 02/25/2016, 1 SARS-COV-2 Immunization (3 - 2024- season) 2025 08/31/2020, 08/10/2020 Respiratory Syncytial Virus (RSV) Immunization (Adult) (1 - 1-dose 75+ series) 02/02/2048 DTaP/Tdap/Td Immunization Discontinued 2007, 11/20/1988, 12/30/1978, Additional history exists TdaP Immunization Completed 04/24/2008 Human Papillomavirus (HPV) Immunization (No Doses Required) Completed Meningococcal Immunization (ACWY) Aged Out No longer eligible based on patient's age to complete this topic Rotavirus Immunization Aged Out No lo nger eligible based on patient's age to complete this topic Medical Devices Implanted Type Area Dance Hall Host/Hostess Device Identifier Shelf Expiration Date Model / Serial / Lot Grft Mesh V Patch C Qur Sm 4.3 X 4.3cm - [id number] Implanted:Qty : 1 on 04/14/2016 by Carlos Almeida MD at [facility] IMPLANT N/A: Umbilical [employer] / [employer] 08/30/2016 [id number] / / [id number] Insurance MEDICAID [employer] Care Teams Machine Deburrer Relationship Specialty Start Date End Date Gulshan Alvarado MD [facility] [place] [address] PCP - General Dental Laboratory Supervisor 04/14/16 Carlos Almeida MD General Surgery 03/11/16
--- OUTSIDE RECORDS SUMMARY | 2025-05-29 01:45 | XMS_ITS | Data Portability ---
Author Organization [facility] [employer], Main Office Address [address] [place] [address] Assessment No assessment recorded. Plan of Treatment Reminders Order Date Submit Date Provider Last Modified By Organization Details Last Modified Time Details Appointments None recorded. Lab pancreatic elastase, quant, stool 2023 024 TAB Not available 4 12:26:02 amylase + lipase, serum 2023 024 [facility] (Lab), [address] [place], [address], 4 16:05:03 CBC w/ auto diff 2022 023 [facility] Not available 3 08:41:53 rapid strep group A, throat 2022 023 [facility] [address] [place], [place], [address], 3 16:41:04 CMP, serum or plasma 2022 [...] abdomen + pelvis, w/wo contrast [address] [facility], [facility], [place], [address], 4 08:09:53 Medication Orders amoxicillin 875 mg-potassiu m clavulanate 125 mg tablet 2022 023 [facility], [address] [place], [address], 3 15:05:45 fluconazole 150 mg tablet 2022 023 [facility], [address] [place], [address], 3 20:57:42 hyoscyamine 0.125 mg sublingual tablet 2022 023 [address], [address] [place], [address], 3 14:25:47 pantoprazol e 40 mg tablet,gerson yed release 2022 023 [facility], [address] [place], [address], 3 13:30:51 Patient TargetsNo targets recorded. Patient Instructions Encounter Date Encounter Id Patient Instructions Last Modified By Organization Details Last Modified Time 12/10/2022 [id number] PT WITH GERD NO BEING CONTROLLED BY FAMOTIDINE ANYMORE . TRY PANTOPRAZOLE 40 MG NEEDED . PT WITH SPASTIC ABD PAIN TRY HYOSCYAMINE SHORT ACTING NEEDED . F/U IN 6 MTHS [email or web address] Not available 12/10/2022 13:29:06 07/15/2023 [id number] PT WITH EPIGASTRIC PAIN RADIATING TO THE BACK. DIARRHEA DIFFICULT TO FLUSH /NAUSEA . DDX : EPI / PANCREATITIS . CHECK FECAL ELASTASE /AMYLASE /LIPASE . F/U IN 3 WEEKS . [email or web address] Not available 07/15/2023 13:43:46 09/09/2023 [id number] LOW FAT DIET . Not availabl e 09/09/2023 16:51:24 PT WITH EPI . PT WITH ONGOING DIARRHEE . I WILL INCREASE CREON DOSE 24K/76K/120K TO 2 CAPSULE TID. F/U IN 4 WEEKS . [email or web address] Not available 09/09/2023 16:51:16 Reason for Referral None Reported. Results Created Date Observation Date Name Description Value Unit Range Abnormal Flag Note LastModifiedBy Organization Detail LastModifiedTime 01/28/20 23 01/27/2023 CBC/C OMPLE TE BLD COUNT W/DIF F white blood cells 4.5 x10'3 /uL 4.2-10 .8 Not Available [facility] (Lab) [address] [place], [address], 01/27/2023 19:14:11 01/28/2001/27/2023 CBC/C OMPLE TE BLD COUNT W/DIF F red blood cells 5.16 x10'6 /uL 3.80-5 .20 Not Available [facility] (Lab) [address] [place], [address], 01/27/2023 19:14:11 01/28/2001/27/2023 CBC/C OMPLE TE BLD COUNT W/DIF F hemoglobin 15.8 g/dL 12.0-1 5.6 high Not Available [facility] (Lab) [address] [place], [address], 01/27/2023 19:14:11 01/28/2001/27/2023 CBC/C OMPLE TE BLD COUNT W/DIF F hematocrit 47.4 % 35.7-4 5.7 high Not Available [facility] (Lab) [address] [place], [address], 01/27/2023 19:14:11 01/28/20 23 01/27/2023 CBC/C OMPLE TE BLD COUNT W/DIF F mean red cell volume 91.9 fL 82.0-9 9.0 Not Available [facility] (Lab) [address] [place], [address], 01/27/2023 19:14:11 01/28/20 23 01/27/2023 CBC/C OMPLE TE BLD COUNT W/DIF F mean red cell hemoglobin 30.6 pg 27.0-3 3.0 Not Available [facility] (Lab) [address] [place], [address], 01/27/2023 19:14:11 01/28/2001/27/2023 CBC/C OMPLE TE BLD COUNT W/DIF F mean RBC HGB concentratio n 33.3 g/dL 31.0-3 6.0 Not Available [facility] (Lab) [address] [place], [address], 01/27/2023 19:14:11 01/28/2001/27/2023 CBC/C OMPLE TE BLD COUNT W/DIF F red cell distribution width 13.8 % 11.8-1 5.5 Not Available [facility] (Lab) [address] [place], [address], 01/27/2023 19:14:11 01/28/2001/27/2023 CBC/C OMPLE TE BLD COUNT W/DIF F platelets 177 x10'3 /uL 150-40 0 Not Available [facility] (Lab) [address] [place], [address], 01/27/2023 19:14:11 01/28/2001/27/2023 CBC/C OMPLE TE BLD COUNT W/DIF F mean platelet volume 11.3 fL 9.0-12 .4 Not Available [facility] (Lab) [address] [place], [address], 01/27/2023 19:14:11 01/28/2001/27/2023 CBC/C OMPLE TE BLD COUNT W/DIF F neutrophils 53 % 39.0-7 2.0 Not Available [facility] (Lab) [address] [place], [address], 01/27/2023 19:14:11 01/28/2001/27/2023 CBC/C OMPLE TE BLD COUNT W/DIF F bands 13 % 0-3 high Not Available [facility] (Lab) [address] [place], [address], 01/27/2023 19:14:11 01/28/2001/27/2023 CBC/C OMPLE TE BLD COUNT W/DIF F lymphocytes 23 % 16.0-4 7.0 Not Available [facility] (Lab) [address] [place], [address], 01/27/2023 19:14:11 01/28/2001/27/2023 CBC/C OMPLE TE BLD COUNT W/DIF F monocytes 7 % 5.0-12 .0 Not Available [facility] (Lab) [address] [place], [address], 01/27/2023 19:14:11 01/28/2001/27/2023 CBC/C OMPLE TE BLD COUNT W/DIF F eosinophils 3 % 1.0-7. 0 Not Available [facility] (Lab) [address] [place], [address], 01/27/2023 19:14:11 01/28/2001/27/2023 CBC/C OMPLE TE BLD COUNT W/DIF F basophils 1 % 0.0-2. 0 Not Available [facility] (Lab) [address] [place], [address], 01/27/2023 19:14:11 01/28/20 23 01/27/2023 CBC/C OMPLE TE BLD COUNT W/DIF F immature granulocytes 0.2 % 0.00-0 .50 Not Available [facility] (Lab) [address] [place], [address], 01/27/2023 19:14:11 01/28/2001/27/2023 CBC/C OMPLE TE BLD COUNT W/DIF F neutrophils, absolute count 2.61 x10'3 /uL 1.5-8. 0 Not Available [facility] (Lab) [address] [place], [address], 01/27/2023 19:14:11 01/28/2001/27/2023 CBC/C OMPLE TE BLD COUNT W/DIF F lymphocytes, absolute count 1.44 x10'3 /uL 1.07-3 .43 Not Available [facility] (Lab) [address] [place], [address], 01/27/2023 19:14:11 01/28/2001/27/2023 CBC/C OMPLE TE BLD COUNT W/DIF F monocytes, absolute count 0.31 x10'3 /uL 0.29-0 .99 Not Available [facility] (Lab) [address] [place], [address], 01/27/2023 19:14:11 01/28/2001/27/2023 CBC/C OMPLE TE BLD COUNT W/DIF F eosinophils, absolute count 0.11 x10'3 /uL 0.02-0 .53 Not Available [facility] (Lab) [address] [place], [address], 01/27/2023 19:14:11 01/28/2001/27/2023 CBC/C OMPLE TE BLD COUNT W/DIF F basophils, absolute count 0.03 x10'3 /uL 0.01-0 .08 Not Available [facility] (Lab) [address] [place], [address], 01/27/2023 19:14:11 01/28/20 23 01/27/2023 CBC/C OMPLE TE BLD COUNT W/DIF F immature granulocytes ,absolute 0.01 x10'3 /uL 0.00-0 .05 Not Available [facility] (Lab) [address] [place], [address], 01/27/2023 19:14:11 01/28/20 23 01/27/2023 CBC/C OMPLE TE BLD COUNT W/DIF F nucleated red blood cells 0.0 % -0 Not Available [facility] (Lab) [address] [place], [address], 01/27/2023 19:14:11 01/28/20 23 01/27/2023 CBC/C OMPLE TE BLD COUNT W/DIF F NRBC# 0.00 x10'3 /uL Not Available [facility] (Lab) [address] [place], [address], 01/27/2023 19:14:11 01/28/20 23 01/27/2023 CBC/C OMPLE TE BLD COUNT W/DIF F reactive lymphocytes OCCASI ONAL Not Available [facility] (Lab) [address] [place], [address], 01/27/2023 19:14:11 01/28/20 23 01/27/2023 COMPR EHENS ALOK METAB OLIC PANEL sodium 134 mmol/ L 137-14 5 low Not Available [facility] (Lab) [address] [place], [address], 01/27/2023 18:50:09 01/28/20 23 01/27/2023 COMPR EHENS ALOK METAB OLIC PANEL potassium 3.9 mmol/ L 3.5-5. 1 Not Available [facility] (Lab) [address] [place], [address], 01/27/2023 18:50:09 01/28/20 23 01/27/2023 COMPR EHENS ALOK METAB OLIC PANEL chloride 98 mmol/ L 98-107 Not Available [facility] (Lab) [address] [place], [address], 01/27/2023 18:50:09 01/28/20 23 01/27/2023 COMPR EHENS ALOK METAB OLIC PANEL carbon dioxide 27 mmol/ L 22-30 Not Available [facility] (Lab) [address] [place], [address], 01/27/2023 18:50:09 01/28/20 23 01/27/2023 COMPR EHENS ALOK METAB OLIC PANEL anion gap 12.9 mmol/ L 14-22 low Not Available [facility] (Lab) [address] [place], [address], 01/27/2023 18:50:09 01/28/20 23 01/27/2023 COMPR EHENS ALOK METAB OLIC PANEL glucose 101 mg/dL 70-99 high Not Available [facility] (Lab) [address] [place], [address], 01/27/2023 18:50:09 01/28/20 23 01/27/2023 COMPR EHENS ALOK METAB OLIC PANEL BUN 12 mg/dL 8-19 Not Available [facility] (Lab) [address] [place], [address], 01/27/2023 18:50:09 01/28/20 23 01/27/2023 COMPR EHENS ALOK METAB OLIC PANEL creatinine 0.88 mg/dL 0.66-1 .25 Not Available [facility] (Lab) [address] [place], [address], 01/27/2023 18:50:09 01/28/20 23 01/27/2023 COMPR EHENS ALOK METAB OLIC PANEL GFR >60 Refer ence Range : [place] ge GFR Healt hy Adult : >60 [...] calcu lator is avail able on the [facility] websi te: https ://landon w.kid gareth.o rg/pr ofess ional s/kdo qi/gf r_cal culat or Not Available [facility] (Lab) [address] [place], [address], 01/27/2023 18:50:09 01/28/20 23 01/27/2023 COMPR EHENS ALOK METAB OLIC PANEL alkaline phosphatase 57 U/L 38-126 Not Available [facility] (Lab) [address] [place], [address], 01/27/2023 18:50:09 01/28/2001/27/2023 COMPR EHENS ALOK METAB OLIC PANEL alanine aminotransfe rase 38 U/L 0-35 high Not Available [facility] (Lab) [address] [place], [address], 01/27/2023 18:50:09 01/28/20 23 01/27/2023 COMPR EHENS ALOK METAB OLIC PANEL aspartate aminotransfe rase 52 U/L 15-37 high Not Available [facility] (Lab) [address] [place], [address], 01/27/2023 18:50:09 01/28/20 23 01/27/2023 COMPR EHENS ALOK METAB OLIC PANEL bilirubin, total 0.80 mg/dL 0.20-1 .30 Not Available [facility] (Lab) [address] [place], [address], 01/27/2023 18:50:09 01/28/20 23 01/27/2023 COMPR EHENS ALOK METAB OLIC PANEL calcium 9.1 mg/dL 8.4-10 .2 Not Available [facility] (Lab) [address] [place], [address], 01/27/2023 18:50:09 01/28/20 23 01/27/2023 COMPR EHENS ALOK METAB OLIC PANEL total protein 7.9 g/dL 6.3-8. 2 Not Available [facility] (Lab) [address] [place], [address], 01/27/2023 18:50:09 01/28/20 23 01/27/2023 COMPR EHENS ALOK METAB OLIC PANEL albumin 4.3 g/dL 3.4-5. 0 Not Available [facility] (Lab) [address] [place], [address], 01/27/2023 18:50:09 01/28/20 23 01/27/2023 COMPR EHENS ALOK METAB OLIC PANEL globulin 3.6 g/dL 2.6-4. 2 Not Available [facility] (Lab) [address] [place], [address], 01/27/2023 18:50:09 01/28/20 23 01/27/2023 COMPR EHENS ALOK METAB OLIC PANEL A/G ratio 1.2 ratio 1.0-2. 0 Not Available [facility] (Lab) [address] [place], [address], 01/27/2023 18:50:09 01/28/20 23 01/27/2023 VITAM IN D 25-HY DROXY vd25oh 35.3 NG/mL 30-100 Vitam in D Statu s: Defic ient: <20 ng/mL Insuf ficie nt: 20-29 ng/mL Suffi cient : 30-10 0 ng/mL Not Available [facility] (Lab) [address] [place], [address], 01/27/2023 18:57:56 01/28/2001/27/2023 TSH W/REF SANJAY FT4 TSH with reflex free T4 2.350 uIU/m L 0.465- 4.680 Not Available [facility] (Lab) [address] [place], [address], 01/27/2023 19:16:41 01/28/2001/27/2023 rapid strep group A, throa t STREP A negati ve Not Available [facility] [address] [place], [place], [address], 01/27/2023 14:46:28 07/24/19 24 07/24/2023 CT, abdom en + pelvi s, w/ contr ast No observ ation record ed. [address] [facility] [address] [place] [address] , [place], [address], 07/29/2023 16:41:07 Result Notes None recorded. Problems Name Problem SNOMED Code Status Onset Date Resolution Date Notes Provider Name and Address Organization Details Recorded Time Abdominal pain 22827691 Active Not Available [facility] 4 12:35:50 Rib pain 178383667 Active Not Available [facility] 4 12:35:50 Pain in right foot 6363407958923 07 Active Not Available [facility] 4 12:35:50 Viral disease 58038619 Active Not Available [facility] 4 12:35:50 Depressive disorder 93493771 Active Not Available [facility] 4 12:35:50 Acute pharyngiti s 748581869 Active [facility] Available [facility] 4 12:35:50 Sinusitis 05744215 Active Not Available [facility] 4 12:35:50 Umbilical hernia 195049802 Active Not Available [facility] 4 12:35:50 Nausea 903865651 Active Not Available [facility] 4 12:35:50 Streptococ fortino sore throat 62817752 Active Not Available [facility] 4 12:35:50 Reactive lymphadeno emigdio 349554234 Active Not Available [facility] 4 12:35:50 Anxiety 19826162 Active Not Available [facility] 4 12:35:50 Upper respirator y infection 71886741 Active Not Available [facility] 4 12:35:50 Hyperlipid emia 91264372 Active Not Available [facility] 4 12:35:50 Diarrhea 89416815 Active Not Available [facility] 4 12:35:50 Otitis media 02793840 Active Not Available [facility] 4 12:35:50 Hypercalce barbara 16886924 Active Not Available [facility] 4 12:35:50 Acid reflux 120269371 Active Not Available [facility] 4 12:35:50 Fatigue 67659448 Active Not Available [facility] 4 12:35:50 Tonsilliti s 75821307 Active Not Available [facility] 4 12:35:50 Irritable bowel syndrome with diarrhea 629625368 Active 2021 Not Available [facility] 4 12:35:50 Gastroesop hageal reflux disease without esophagiti s 967920778 Active 2021 Not Available [facility] 4 12:35:50 Open wound of lower leg 842870965 Active 2022 Not Available [facility] 4 12:35:50 Pain of left calf 4492765084511 109 Active 2022 Not Available [facility] 4 12:35:50 Hyperpigme ntation of skin 16534669 Active 2022 Not Available [facility] 4 12:35:50 Lymphedema of lower extremity 216594869 Active 2022 Not Available [facility] 4 12:35:50 Abdominal colic 7206459 Active 2022 Not Available [facility] 4 12:35:50 Mild dehydratio n 4084034720139 Active 2022 Not Available [facility] 4 12:35:50 Vitamin D deficiency 50018881 Active 2022 Not Available [facility] 4 12:35:50 Pain in throat 256847081 Active 2022 Not Available [facility] 4 12:35:50 Leukocytos is 558986631 Active 2022 Not Available [facility] 4 12:35:50 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 [employer] 4 16:48:36 Problem Notes None recorded. Procedures Surgical History Date Name Laterality Status Provider Name and Address Organization Details Recorded Time 08/28/19 Wound Care-Podiatry completed Renee Correa RN [facility] 08/27/2022 10:56:15 section completed Not Available [facility] 07/30/2022 07:26:34 abdominoplasty completed Not Available [facility] 07/30/2022 07:26:34 Hernia Repair completed Not Available [facility] 07/30/2022 07:26:34 colonoscopy completed Not Available [facility] 07/30/2022 07:26:34 EGD completed Not Available [facility] 07/30/2022 07:26:34 Imaging Results None recorded. Procedure Notes None recorded. Medical Equipment None Reported. Allergies Allergen ID Allergen Name Allergen Category Reaction Reaction Severity Criticality Documentation Date Start Date Code Code System Note Provider Name and Address Organization Details Recorded Time 86001 amoxicill in medicatio n Not available Not available Not available 07/30/2022 723 RxNorm Other react ions and sever ities : 'Adve rse react ion to subst ance' . Gulshan Alvarado MD [address] [facility], [facility] [address], [place], [address], [facility] [employer] 15:03:52 Medications Name Sig Start Date Stop [...] EVERY DAY IN THE MORNING 03/02 [facility] , [...] Updated DateTime 07/15/2023 167.64 cm 27 kg/m2 96777.93 radha Mittal [facility] 07/15/2023 12:45:41 Date Recorded Body height Body mass index (BMI) Body weight Provider Name and Address Organization Details Last Updated DateTime 09/09/2023 167.64 cm 27 kg/m2 46289.93 radha Mittal [facility] 09/09/2023 14:21:17 Date Recorded Body height Body mass index (BMI) Body weight Heart rate Oxygen saturation Systolic And Diastolic Provider Name and Address Organization Details Last Updated DateTime 07/12/202 3 167.64 cm 27.1 kg/m2 82109.5 2 g 76 /min 96 % 142/86 mm[Hg] ANTIONETTE T[facility] 3 12:52:30 Date Recorded Body height Body mass index (BMI) Body weight Body temperature Heart rate Oxygen saturation Systolic And Diastolic Provider Name and Address Organization Details Last Updated DateTime 3 167.64 cm 26.3 kg/m2 75110.5 6 g 97.9 [degF] 100 /min 98 % 112/78 mm[Hg] Columba moore [facility] 3 14:25:57 Date Recorded Body height Body mass index (BMI) Body weight Body temperature Heart rate Oxygen saturation Systolic And Diastolic Provider Name and Address Organization Details Last Updated DateTime 3 167.64 cm 27 kg/m2 41866.9 3 g 97.7 [degF] 73 /min 98 % 110/72 mm[Hg] Columba moore, [facility] [employer] 3 12:23:15 Social History Question Answer Notes LastModified by Organizat ion Details LastModified Time Tobacco Smoking Status Never Smoker Not Available [facility] 07/30/2022 07:26:27 Do You Have An Advance Directive? Yes MIGRATION.24883 [id number] Information not available 07/30/2022 What Is Your Level Of Caffeine Consumption? Occasional Coffee Sometimes MIGRATION.48510 46552 Information not available 07/30/2022 How Much Tobacco Do You Chew? None MIGRATION.88778 05993 Information not available 07/30/2022 In The 14 Days Before Symptom Onset, Have You Had Close Contact With A Laboratory-confi rmed COVID-19 While That Case Was Ill? No MIGRATION.74648 30905 Information not available 07/30/2022 In The 14 Days Before Symptom Onset, Have You Had Close Contact With A Person Who Is Under Investigation For COVID-19 While That Person Was Ill? No MIGRATION.14698 20882 Information not available 07/30/2022 What Type Of Diet Are You Following? REGULAR MIGRATION.78877 40248 Information not available 07/30/2022 Which Illicit Or Recreational Drugs Have You Used? None MIGRATION.50689 30732 Information not available 07/30/2022 Are There Any Guns Present In Your Home? No MIGRATION.27517 99049 Information not available 07/30/2022 What Was The Date Of Your Most Recent Tobacco Screening? 02/26/2022 MIGRATION.77189 03508 Information not available 07/30/2022 How Much Tobacco Do You Smoke? No MIGRATION.57800 29589 Information not available 07/30/2022 Do You Use Sunscreen Routinely? Yes MIGRATION.30991 46229 Information not available 07/30/2022 Sex: Unknown Functional Status Question Answer Note LastModified by Organizat ion Details LastModified Time What is your level of alcohol consumption? Occasional MIGRATION.9087666 026 Information not available 07/30/2022 Do you or have you ever used smokeless tobacco? Never used smokeless tobacco MIGRATION.3319855 026 Information not available 07/30/2022 What is your occupation? teacher MIGRATION.1192626 026 Information not available 07/30/2022 Do you or have you ever used e-cigarettes or vape? Never used electronic cigarettes MIGRATION.5006413 026 Information not available 07/30/2022 What is your exercise level? None MIGRATION.7205008 026 Information not available 07/30/2022 Mental Status None recorded. Family History Relationship Description Onset Age of this Age Resolved Age Notes LastModified by Organization Details LastModified Time Mother Hypertensive disorder MIGRATION.829 [id number] Not available 07/30/2022 07:26:35 Mother Hypercholest erolemia MIGRATION.161 [id number] Not available 07/30/2022 07:26:35 Father Hypercholest erolemia MIGRATION.707 [id number] Not available 07/30/2022 07:26:36 Medical History Condition Response HIGH CHOLESTEROL / HYPERLIPIDEMIA Y BOWEL PROBLEMS Y DEPRESSION (INCLUDING POST ) Y HEARTBURN / REFLUX Y Gynecological HistoryNo gynecological history recorded. Obstetrics History GPAL:G 0 P 0 0 0 0 Immunizations Vaccine Type Date Status Note Provider Nam e and Address Organization Details Recorded Time Tdap 8 completed Not Available [facility] 07/17/2023 12:35:51 Influenza, split virus, trivalent, preservative 5 completed Not Available [facility] 07/17/2023 12:35:51 Past Encounters Encounter ID Performer Location Encounter Start Date Encounter Closed Date Diagnosis/Indication Diagnosis SNOMED-CT Code Diagnosis ICD10 Code Diagnosis IMO Codes Diagnosis Note [id number] Gulshan Alvarado MD [facility] Karen agudelo [address] [place] [address] y , [place] [address] 07/31/2020 00:00:00 07/31/2020 13:44:36 [id number] Gulshan Alvarado MD [facility] Karen agudelo [address] [place] [address] y , [place] [address] 09/06/2020 00:00:00 09/06/2020 20:37:09 [id number] _ATHN_MIGR ATION_1 _ATHENA_M IGRATION_ DEFAULT_1 _1 , 09/26/2020 00:00:00 09/26/2020 11:30:46 [id number] _ATHN_MIGR ATION_1 _ATHENA_M IGRATION_ DEFAULT_1 _1 , 12/12/2020 00:00:00 12/12/2020 11:06:08 [id number] _ATHN_MIGR ATION_1 _ATHENA_M IGRATION_ DEFAULT_1 _1 , 03/20/2021 00:00:00 03/20/2021 10:45:01 [id number] Gulshan Alvarado MD [facility] Karen agudelo [address] [facility] y , [place] [address] 08/27/2021 00:00:00 08/27/2021 19:42:46 [id number] _ATHN_MIGR ATION_1 _ATHENA_M IGRATION_ DEFAULT_1 _1 , 08/28/2021 00:00:00 08/28/2021 17:08:38 [id number] Gulshan Alvarado MD [facility] Karen agudelo [address] [place] [address] y , [place] [address] 09/30/2021 00:00:00 09/30/2021 12:50:08 [id number] Gulshan Alvarado MD [facility] Karen agudelo [address] [place] [address] [place] [address] 11/29/2021 00:00:00 11/30/2021 11:29:25 [id number] _ATHN_MIGR ATION_1 _ATHENA_M IGRATION_ DEFAULT_1 _1 , 02/26/2022 00:00:00 02/26/2022 12:03:30 [id number] Gulshan Alvarado MD [facility] Karen agudelo [facility] [facility] [place] [address] 08/06/2022 13:59:20 08/06/2022 14:28:47 Open wound of lower leg 158973872 S81.801A Pain of left calf 349193 2582 580041 M79.662 [id number] Mg Baker DPM [facility] [address] [place] [address] 08/27/2022 10:22:03 08/27/2022 11:32:55 Hyperpigmentation of skin 81667280 L81.9 hyperpigme nted scar secondary to wound, healedrevi ewed silicone sheeting we the patient as well as Mederm[employer] usageconti nue chronic compressio n for lymphedema follow-up as needed Lymphedema of lower extremity 139594156 I89.0 continue chronic compressio n therapy [id number] Cleo Figueroa MD [facility] General Surgery [address] [address] 12/10/2022 12:50:22 12/10/2022 14:04:02 Gastroesophageal reflux disease without esophagitis 941574876 K21.9 Abdominal pain 60848195 R10.9 Abdominal colic 7910513 R10.83 [id number] Gulshan Alvarado MD [facility] Karen agudelo [facility] [place] [address] 01/27/2023 14:18:11 01/27/2023 15:07:15 Mild dehydration 4680256485 108 E86.0 F/u in 1 week. Thyroid di sorder screening 628637478 Z13.29 Vitamin D deficiency 347 20497 E55.9 Pain in throat [id number] R07.0 [id number] Gulshan Alvarado MD [facility] Family Practice [facility] [address] [facility] [place] [address] 02/03/2023 12:10:10 02/03/2023 12:44:26 Leukocytosis [id number] D72.829 Finish out antibiotic . SxRx [id number] Cleo Figueroa MD [facility] General [facility] [address] [facility] [address] 07/15/2023 12:45:16 07/15/2023 13:23:01 Gastroesophageal reflux disease without esophagitis [id number] K21.9 Abdominal pain 78156490 R10.9 Abdominal colic 1621557 R10.83 Diarrhea 76181098 R19.7 [id number] Cleo Figueroa MD [facility] General Surgery [address] [address] 09/09/2023 14:17:14 09/09/2023 14:50:41 Gastroesophageal reflux disease without esophagitis [id number] K21.9 Abdominal colic 4860467 R10.83 Exocrine p ancreatic insufficiency [id number] K86.81 Health Concerns Section Related Observation LastModified by Organization Detai ls LastModified Time None Recorded Concern Status LastModified by Organization Details LastModified Time None Recorded Advance Directives Directive Y: Payers Insurance Date Sequence Insurance Name Policy Number Policy Mondragon Covered Member ID Mondragon Member ID Guarantor Name 02/06/2024 1 [facility] ON OR AFTER 11/29/20 (MEDICAID REPLACEMENT - HMO) Mira Solis [id number] Mira Solis Notes Date Note Type Note Provider Name and Address Organization Details Recorded Time 12/10/2022 text/html ROS as noted in the HPI PT WAS SEEN IN THE OFFICE TODAY FOR A F/U. PT C/O ABD PAIN PRECEEDED HER BM AND SX LASTED 24 HRS . SHE WAS OUT OF HER HYOSCYAMINE LONG ACTING MEDS. PT HAS GERD THAT HER SX ARE MORE FREQUENT AND FAMOTIDINE IS NOT EFFECTIVE BEFORE . SHE HAS NOT CHANGED HER DIET . Cleo Figueroa MD [address], [place], [address], [employer] [facility] [employer] 12/10/2022 13:31:06 01/27/2023 text/html Here today not [...] anything gets dizziness. Gulshan Alvarado MD [address], [place], [address], [facility] [employer] 01/27/2023 20:58:50 02/03/2023 text/html Here today for f/u is still taking antibiotics. Feeling much better! Gulshan Alvarado MD [address], [place], [address], [employer] [facility] [employer] 02/04/2023 06:29:54 07/15/2023 text/html ROS as noted in the HPI MIRA WAS SEEN IN THE OFFICE TODAY [...] DENIES WT LOSS . Cleo Figueroa MD [address], [place], [address], [facility] [employer] 07/15/2023 13:44:08 09/09/2023 text/html ROS as noted in the HPI MIRA WAS SEEN IN THE OFFICE TODAY FOR A F/U. PT WAS LAST SEEN IN THE OFFICE C/O EPIGASTRIC PAIN RADIATING TO HER BACK. CT ABD WAS NORMAL .FECAL ELASTASE WAS 124 INDICATING MODERATE EPI . CREON WAS RXED . TODAY SHE REPORTS THAT SHE HAS DIARRHEA . WHEN SHE EATS PIZZA AND EATS FRIED FOODS SX INCREASES . Cleo Figueroa MD [address], [place], [address], [place] [facility] 09/09/2023 16:51:57 OBGyn Episode No OBEpisode recorded.
--- OUTSIDE RECORDS SUMMARY | 2025-05-29 01:45 | XMS_ITS | Clinical Summary ---
Author Organization [facility] Address [address] [place] [address] Phone Care Team Providers Care Deposition Reporter Name Role Phone Sjc, External Provider Primary Care Provider U navailable [...] 2) 2023 INFLUENZA VACCINE (#1) 2024 Insurance [facility] MEDICAID Care Teams Deposition Reporter Relationship Specialty Start Date End Date [facility], External Provider [address] [place] [address] PCP - General 01/26/18
--- OUTSIDE RECORDS SUMMARY | 2025-05-29 01:45 | XMS_ITS | Clinical Summary ---
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 Inhaled Oxygen Concentration - - Weight 79.4 kg (175 lb) 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 Height 167.6 cm (5' 6) 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 Body Mass Index 28.25 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 Plan of Treatment Health Maintenance Due Date [...] of 2) 2023 COVID-19 Vaccine (1 - 2024-2 6 season) 2025 Influenza Adult (#1) 2025 02/25/2016 Hepatitis A Vaccines Aged Out No long er eligible based on patient's age to complete this topic Meningococcal B Vaccine Aged Out No l onger eligible based on patient's age to complete this topic Meningococcal Vaccine Aged Out No vicki wayne eligible based on patient's age to complete this topic RSV Immunizations Under 20 Months Aged Out No longer eligible based on patient's age to complete this topic Insurance [place] Care Teams Print Color Matcher Relationship Specialty Start Date End Date Gulshan Junior MD [address] [place] [address] PCP - General FAMILY PRACTICE 07/22/20
--- NOTE | 2025-05-29 05:25 | WPDHPUPDATE1 ---
History and Physical Update Update Date/Time: 05/29/25 05:25 History and Physical has been reviewed, including an updated exam of the patient. There are NO changes in the patient's condition. Risks, benefits, and alternatives have been discussed and questions answered. Patient agrees to proceed with procedure.
--- NOTE | 2025-05-29 05:26 | PM.HPGS ---
History of Present Illness History of Present Illness Consent: Risks, benefits, and alternatives have been discussed and questions answered. Patient agrees to proceed with procedure. Chief complaint: Menorrhagia Narrative: Mira Solis is a 50 year old female with 4 weeks vaginal bleeding. Pelvic ultrasound shows an enlarged uterus at 13cm. Endometrium is thickened measuring 2.7cm. There is a possible polyp measuring 1.6cm. It was recommended to undergo D&C hysteroscopy. Risks of infection, bleeding, perforation, and possible pathology are reviewed. Patient voices understanding and agrees to proceed. Review of Systems Review of Systems: not repeated day of surgery; patient states no changes in status ON LICENSE OF [facility] Past Medical History Medical History (Updated 05/29/25 @ 06:52 by Melvi House MD) History of cardiac arrhythmia Peptic ulcer disease Ulcer 2020 Elevated cholesterol Depression Asthma Irritable bowel syndrome Surgical History Surgical History (Updated 05/29/25 @ 05:32 by Melvi House MD) History of cosmetic plastic surgery On her neck History of hernia repair History of breast augmentation History of abdominoplasty History of liposuction of abdomen X2 History of X2 Family History Family History Mother Hypertension Thyroid disorder Grandparent Lymphoma Social History Social History Smoking status: Never smoker Alcohol intake: current Drinks per week: 1 Living arrangements: alone Spiritual care concerns: No Meds Home Medications and Allergies Home Medications ?Medication ?Instructions ?Recorded ?Confirmed ?Type atorvastatin 20 mg tablet 20 mg PO QHS #90 tabs 07/26/24 05/22/25 Rx cyclobenzaprine 10 mg tablet 10 mg PO TID PRN muscle spasm #14 08/11/24 05/22/25 Rx tabs amoxicillin 875 mg-potassium 1 tablet PO BID #20 tabs 04/10/25 05/22/25 Rx clavulanate 125 mg tablet multivitamin (Daily Value tablet) 1 tablet PO DAILY 05/22/25 05/22/25 History omeprazole 40 mg capsule,delayed 40 mg PO PRN 05/22/25 05/22/25 History release Allergies Allergy/AdvReac Type Severity Reaction Status Date / Time No Known Allergies Allergy Mild Verified 05/22/25 11:56 Exam Const: General: healthy appearing and alert Orientation/consciousness: patient oriented x3 Resp: Effort & Inspection: normal respiratory effort GI: GI Palp: Yes Soft to palpation, No Tenderness to palpation present (GI) and No Palpable mass present : External Female Exam: normal external appearance Speculum Exam - Vagina: normal appearance of the vagina and normal vaginal discharge Speculum Exam - Cervix: normal appearance of the cervix Bimanual exam- vagina & uterus: consistency normal and enlarged Bimanual Exam- Adnexa, other: normal adnexae and No adnexal tenderness Neuro: General: patient oriented x3 Assessment and Plan Assessment and plan (1) Menorrhagia: Code(s): N92.0 - Excessive and frequent menstruation with regular cycle Status: Acute Assessment and Plan: Plan to proceed with D&C hysteroscopy
[2025-05-29] MEDS: ACETAMINOPHEN 500 MG TABLET 1000 MG PO (07:00)
[2025-05-29] MEDS: LACTATED RINGERS 1,000 ML 30 ML IV CONT (07:00)
[2025-05-29 07:07] VITALS: BP 144/97; PULSE 77; TEMP 36.4; O2SAT 98; BMI 28.3
[2025-05-29 07:15] LABS: BEDSIDEPREGUCG Negative (Negative)
--- NOTE | 2025-05-29 07:39 | WPDANESEPPF ---
Anes - Initial Pre Proc Eval Procedure: Operation Date: 05/29/25 08:15 Proposed Procedures p Hysteroscopy, Dilation and Curettage - Melvi House MD Date/Time: 05/29/25 07:39 Surgeon: Melvi House MD Pre Op Diagnosis: Menorrhagia Patient Data Age: 50 Gender: F Height: 1.68 m Weight: 79.45 kg Last Vital Signs Temp 36.4 C L 05/29/25 07:07 Pulse 77 05/29/25 07:07 BP 144/97 H 05/29/25 07:07 Pulse Ox 98 05/29/25 07:07 O2 Del Method Room Air 05/29/25 07:07 Allergies Allergy/AdvReac Type Severity Reaction Status Date / Time No Known Allergies Allergy Mild Verified 05/22/25 11:56 Home Medications ?Medication ?Instructions ?Recorded ?Confirmed ?Type atorvastatin 20 mg tablet 20 mg PO QHS #90 tabs 07/26/24 05/22/25 Rx cyclobenzaprine 10 mg tablet 10 mg PO TID PRN muscle spasm #14 08/11/24 05/22/25 Rx tabs amoxicillin 875 mg-potassium 1 tablet PO BID #20 tabs 04/10/25 05/22/25 Rx clavulanate 125 mg tablet multivitamin (Daily Value tablet) 1 tablet PO DAILY 05/22/25 05/22/25 History omeprazole 40 mg capsule,delayed 40 mg PO PRN 05/22/25 05/22/25 History release Laboratory Tests 05/29/25 07:07 POC Urine HCG, Qual Negative (Negative) Patient hx anesthesia problems: none Family hx anesthesia problems: none Results Review: All pre-operative results and documents have been reviewed as part of the pre-operative evaluation. [facility] Past Medical History Medical History History of cardiac arrhythmia Peptic ulcer disease Ulcer 2020 Elevated cholesterol Depression Asthma Irritable bowel syndrome Surgical History Surgical History History of cosmetic plastic surgery On her neck History of hernia repair History of breast augmentation History of abdominoplasty History of liposuction of abdomen X2 History of X2 Family History Family History Mother Hypertension Thyroid disorder Grandparent Lymphoma Social History Social History Smoking status: Never smoker Alcohol intake: current Drinks per week: 1 Living arrangements: alone Spiritual care concerns: No Anes - Eval Final PreProcedure Day of Procedure 05/29/25 07:39 Patient weight: overweight Heart: regular rate and rhythm Lungs: clear to auscultation Airway: Mallampati scale class II Neurological: alert and oriented Last oral intake: >/= 8 hours ASA classification: II Emergent: no Anesthetic plan: proceed Anesthesia type and monitoring: general GIVS and standard monitoring Results Review: All pre-operative results and documents have been reviewed as part of the pre-operative evaluation. Informed Consent: The patient's anesthetic plan and its attendant risks and benefits were discussed with the patient/family/POA. Questions were solicited and answers provided to the satisfaction of the patient/family/POA.
[2025-05-29] MEDS: KETOROLAC 15 MG/ML VIAL (*BKC) IV PUSH (08:12)
--- NOTE | 2025-05-29 08:26 | S_PTH ---
PATIENT: Mira Solis LOC: [facility] U#:[id number] AGE/SX: 50/F ROOM: RE05/29/[address]: Melvi House MD : 1975 BED: DIS: 05/29/2025 SPEC #: [id number] RECD: 05/29/25 10:14 STATUS: MOHSEN REQ #: [id number] DONNIE: 05/29/25 08:[address]: Melvi House DEPT: [facility] [place] Surgical RECD BY: Vanesa Saunders ENTERED: 05/29/25 10:15 SP TYPE: Surgical OTHR DR: Kwan Piedra DO Tissues: A - Endometrial Curettings Procedures: Hematoxylin and Eosin Stain Gross and Microscopic Level 4
[2025-05-29 08:35] VITALS: BP 127/73; PULSE 75; RESP 16; O2SAT 98
--- NOTE | 2025-05-29 08:46 | P.OP_ITS ---
Procedure Note - Detailed Date of Procedure 05/29/25 Pre-op Diagnosis Menorrhagia Post-op Diagnosis Same Procedure Performed D&C hysteroscopy Surgeon Melvi House MD Anesthesia MAC Findings The uterus sounds to 8cm. There is a large polyp left anterior. There was a possible small fibroid the right anterior. Description of Procedure The patient was taken to the operating room and placed under anesthesia in the dorsal lithotomy position. She was prepped and draped in the usual sterile fashion. Redgranite speculum was placed in the vagina and the cervix grasped on the anterior lip with tenaculum. The uterus is sounded to 8cm. The diagnostic hysteroscope was placed and with the above-stated findings the small resection Aveta device is opened and placed. The polyp was removed in its entirety suspected fibroid was removed in its entirety. The hysteroscopic instruments were then removed. The endometrium was curetted with a sharp curette until a good uterine cry was noted in all areas. All instruments are removed. Sponge, needle, and instrument counts are correct per the OR staff. The patient was taken to recovery in stable condition. Estimated Blood Loss 5 Drains No Packing No Pathology Yes (Endometrial curettings and shavings) Complications No immediate complications Condition Stable Disposition PACU
[2025-05-29 09:00] VITALS: BP 121/77; PULSE 73; RESP 20
[2025-05-29 09:30] VITALS: BP 113/70; PULSE 66; RESP 20
[2025-05-29 09:44] VITALS: BP 133/70; PULSE 73; RESP 20
== END 2025-05-29 09:46 | disposition home or self-care (01) ==
PROVIDERS: PCP Internal Medicine; Visit Provider Obstetrics & Gynecology Gynecology
PROC: 0U5B8ZZ Destruction of Endometrium, Via Natural or Artificial Opening Endoscopic (ICD-10-PCS; CPT 58563; principal; 2025-05-29 08:15)
DX: N92.0 Excessive and frequent menstruation with regular cycle (principal); N84.0 Polyp of corpus uteri
CPT/HCPCS: 58558; 88305; A9270; J1885; J2003; J2250; J2704; J3010; J7120